=== PATIENT | female | born 1945 | race American Indian/Alaskan Native ===

== ENCOUNTER 2017-04-24 13:44 | Inpatient (IN) | payer MEDICARE ==
[2017-04-24 13:52] VITALS: BMI 46.5
--- NOTE | 2017-04-24 14:16 | C.PDOC ---
History Of Present Illness 71F sent by pmd for "irregular heart beat." pt says she was at a routine appt today when it was discovered. she does report sob for the last week and says "I' m retaining fluid" but this has been going on for months. she denies chest pain. Time Seen by Provider: 04/24/17 14:02 Chief Complaint (Nursing): Shortness Of Breath Past Medical History Vital Signs: Last Vital Signs Temp 97.6 F 04/24/17 13:52 Pulse 105 H 04/24/17 13:52 Resp 26 H 04/24/17 13:52 BP 134/84 04/24/17 13:52 Pulse Ox 93 L 04/24/17 14:28 - Medical History PMH: HTN, Hypercholesterolemia Family History: States: Other Other Family History: nc - Social History Hx Alcohol Use: No Hx Substance Use: No - Immunization History Hx Tetanus Toxoid Vaccination: No Hx Influenza Vaccination: Yes Hx Pneumococcal Vaccination: No Review Of Systems Except As Marked, All Systems Reviewed And Found Negative. Constitutional: Negative for: Fever, Chills Cardiovascular: Positive for: Edema. Negative for: Chest Pain, Palpitations Respiratory: Positive for: Shortness of Breath. Negative for: Cough, Hemoptysis Gastrointestinal: Negative for: Nausea, Vomiting, Abdominal Pain Genitourinary: Negative for: Dysuria Neurological: Negative for: Weakness, Numbness, Headache Physical Exam - Physical Exam Appears: Well, Non-toxic, No Acute Distress Skin: Warm, Dry Head: Atraumatic Eye(s): bilateral: PERRL Nose: No Epistaxis Oral Mucosa: Moist Cardiovascular: Rhythm Irregular Respiratory: No Accessory Muscle Use, No Rales, No Rhonchi, No Stridor, No Wheezing Gastrointestinal/Abdominal: Soft, No Tenderness Extremity: Swelling (severe lymphedema bilateral) Neurological/Psych: Oriented x3, Normal Motor, Normal Sensation, Other (no focal deficits) ED Course And Treatment - Laboratory Results Result Diagrams: 04/24/17 14:34 04/24/17 14:34 O2 Sat by Pulse Oximetry: 93 Medical Decision Making Medical Decision Making: ecg- afib rate 100, rad, no acute ischemia Disposition - Disposition Disposition: HOSPITALIZED Disposition Time: 15:27 Condition: STABLE Forms: [employer] (Bengali) - Clinical Impression Clinical Impression: CHF (congestive heart failure), Atrial fibrillation
[2017-04-24 14:38] LABS: BASO % 0.8 % (0.0-2.0); EOS # 0.1 K/uL (0.0-0.7); EOS % 1.6 % (0.0-4.0); HEMOGLOBIN 10.2 g/dL (11.0-16.0); LYMPH # 1.2 K/uL (1.0-4.3); LYMPH % 23.3 % (20.0-40.0); MEAN CELL VOLUME 82.2 fL (81.0-99.0); MEAN CORPUSCULAR HEMOGLOBIN 26.3 pg (27.0-31.0); MEAN PLATELET VOLUME 8.1 fL (7.2-11.7); MONO # 0.7 K/uL (0.0-0.8); MONO % 13.5 % (0.0-10.0); NEUT # 3.1 K/uL (1.8-7.0); NEUT % 60.8 % (50.0-75.0); NRBC % 0.1 % (0.0-2.0); RBC 3.88 Mil/uL (3.80-5.20); RED CELL DISTRIBUTION WIDTH 16.3 % (11.5-14.5); WHITE BLOOD COUNT 5.1 K/uL (4.8-10.8)
[2017-04-24 14:47] LABS: INR 1.2; PROTHROMBIN TIME 13.7 SECONDS (9.7-12.2)
[2017-04-24 14:54] LABS: ALBUMIN 3.5 g/dL (3.5-5.0); BLOOD UREA NITROGEN 30 mg/dL (7-17); CALCIUM 8.6 mg/dl (8.6-10.4); GFR AFRICAN-AMERICAN > 60; GFR NON-AFRICAN AMERICAN > 60
[2017-04-24 14:55] LABS: ALB/GLOB RATIO 1.1 (1.0-2.1); ALT/SGPT 33 U/L (9-52); AST/SGOT 45 U/L (14-36)
[2017-04-24 15:06] LABS: B-TYPE NATRIURETIC PEPTIDE 5510 pg/mL (0-900)
--- NOTE | 2017-04-24 16:17 | RAD ---
HISTORY: sob COMPARISON: No prior. FINDINGS: LUNGS: Bilateral perihilar and bibasilar airspace coalescing opacities. Coalescing pulmonary edema with or without infiltrates are compatible with PLEURA: Small bilateral pleural effusion suggested. No pneumothorax apparent. CARDIOVASCULAR: Cardiomegaly OSSEOUS STRUCTURES: Thoracic spondylosis. Bilateral shoulder arthrosis VISUALIZED UPPER ABDOMEN: Normal. OTHER FINDINGS: None. IMPRESSION: Cardiomegaly with probable bilateral coalescing pulmonary edema mild bilateral pleural effusions. Concomitant infiltrates not excluded.
[2017-04-24] MEDS ORDERED: Digoxin 125 mcg (0.125 mg) Tab PO STA ×2 (18:21→19:56)
--- NOTE | 2017-04-24 18:42 | CP.PCM.HP ---
History of Present Illness - History of Present Illness History of Present Illness: Patient is a known case of CAD, HTN, NIDDM , Obesity and CHF. She gained 25 lbs in 2 moths with SOB and massive pedal edema. In the office her heart rate was 100/ min. Chest x- ray in the ER showed pleural effusiin and CHF> Present on Admission - Present on Admission Any Indicators Present on Admission: No Review of Systems - Review of Systems Systems not reviewed;Unavailable: Respiratory Distress - Constitutional Constitutional: Weight Gain - Cardiovascular Cardiovascular: Dyspnea on Exertion, Leg Edema, Palpitations, Rapid Heart Rate - Respiratory Respiratory: Dyspnea on Exertion, Chest Congestion - Reproductive: Female Reproductive:Female: Menopausal - Musculoskeletal Musculoskeletal: Abnormal Gait Past Patient History - Past Medical History & Family History Past Medical History?: Yes - Past Social History Smoking Status: Never Smoked Chewing Tobacco Use: No Cigar Use: No Home Situation {Lives}: With Family - CARDIAC Hx Cardiac Disorders: Yes Hx Congestive Heart Failure: Yes Hx Hypercholesterolemia: Yes Hx Hypertension: Yes Hx Peripheral Edema: Yes - PULMONARY Hx Respiratory Disorders: Yes Hx Pulmonary Edema: Yes - NEUROLOGICAL Hx Neurological Disorder: No - HEENT Hx HEENT Problems: Yes Hx Glaucoma: Yes (NO MEDS) - RENAL Hx Chronic Kidney Disease: No - ENDOCRINE/METABOLIC Hx Endocrine Disorders: Yes Hx Diabetes Mellitus Type 2: Yes - HEMATOLOGICAL/ONCOLOGICAL Hx Blood Disorders: No - INTEGUMENTARY Hx Dermatological Problems: No - MUSCULOSKELETAL/RHEUMATOLOGICAL Hx Musculoskeletal Disorders: Yes Hx Back Pain: Yes Hx Herniated Disk: Yes (BULGING DISC) - GASTROINTESTINAL Hx Gastrointestinal Disorders: No - GENITOURINARY/GYNECOLOGICAL Hx Genitourinary Disorders: No - PSYCHIATRIC Hx Substance Use: No - SURGICAL HISTORY Hx Surgeries: Yes Hx Hysterectomy: Yes (PARTIAL HYSTERECTOMY) Other/Comment: LEFT BREAST LUMPECTOMY - ANESTHESIA Hx Anesthesia: Yes Hx Anesthesia Reactions: No Meds Allergies/Adverse Reactions: Allergies Allergy/AdvReac Type Severity Reaction Status Date / Time No Known Allergies Allergy Verified 04/24/17 13:51 Physical Exam - Constitutional Appears: In Acute Distress - Head Exam Head Exam: ATRAUMATIC, NORMAL INSPECTION, NORMOCEPHALIC - Eye Exam Eye Exam: Normal appearance Pupil Exam: PERRL - ENT Exam ENT Exam: Mucous Membranes Moist - Neck Exam Neck exam: Positive for: Full Rom - Respiratory Exam Respiratory Exam: Decreased Breath Sounds, Rales, Respiratory Distress - Cardiovascular Exam Cardiovascular Exam: +S1, +S2 Additional comments: Tachcardic woith irregiuralgy irregular. - GI/Abdominal Exam GI & Abdominal Exam: Normal Bowel Sounds, Soft - Rectal Exam Rectal Exam: Deferred - Back Exam Back exam: NORMAL INSPECTION - Neurological Exam Neurological exam: Alert, Oriented x3 - Psychiatric Exam Psychiatric exam: Normal Affect, Normal Mood - Skin Skin Exam: Dry, Intact, Warm Results - Vital Signs Recent Vital Signs: Last Vital Signs Temp 97.6 F 04/24/17 13:52 Pulse 110 H 04/24/17 16:33 Resp 20 04/24/17 16:33 BP 126/73 04/24/17 17:06 Pulse Ox 99 04/24/17 16:33 - Labs Result Diagrams: 04/24/17 14:34 04/24/17 14:34 Labs: Laboratory Results - last 24 hr 04/24/17 04/24/17 04/24/17 14:34 14:34 14:34 WBC 5.1 RBC 3.88 Hgb 10.2 L Hct 31.9 L MCV 82.2 MCH 26.3 L MCHC 32.0 L RDW 16.3 H Plt Count 167 MPV 8.1 Neut % (Auto) 60.8 Lymph % (Auto) 23.3 [place] % (Auto) 13.5 H Eos % (Auto) 1.6 Baso % (Auto) 0.8 Neut # 3.1 Lymph # 1.2 [place] # 0.7 Eos # 0.1 Baso # 0.0 PT 13.7 H INR 1.2 APTT 29 Sodium 139 Potassium 4.4 Chloride 102 Carbon Dioxide 29 Anion Gap 13 BUN 30 H Creatinine 0.9 Est GFR ( Amer) > 60 Est GFR (Non-Af Amer) > 60 Random Glucose 111 H Calcium 8.6 Total Bilirubin 0.8 AST 45 H ALT 33 Alkaline Phosphatase 67 Troponin I < 0.0120 NT-Pro-B Natriuret Pep 5510 H Total Protein 6.9 Albumin 3.5 Globulin 3.4 Albumin/Globulin Ratio 1.1 TSH 3rd Generation 04/24/17 14:34 WBC RBC Hgb Hct MCV MCH MCHC RDW Plt Count MPV Neut % (Auto) Lymph % (Auto) [place] % (Auto) Eos % (Auto) Baso % (Auto) Neut # Lymph # [place] # Eos # Baso # PT INR APTT Sodium Potassium Chloride Carbon Dioxide Anion Gap BUN Creatinine Est GFR ( Amer) Est GFR (Non-Af Amer) Random Glucose Calcium Total Bilirubin AST ALT Alkaline Phosphatase Troponin I NT-Pro-B Natriuret Pep Total Protein Albumin Globulin Albumin/Globulin Ratio TSH 3rd Generation 1.33 Assessment & Plan - Assessment and Plan (Free Text) Assessment: Assessment: New onset atrial fibrillation. CAD. Congestive cardiomyopathy.. NIDDM HTN OBESity Hyperlipidemia Plan: Plan: Lasix by IVJOSE COREG ELIQUIS ECHO CADRDIOLOGY CONSULT iwdonna MOORE> Som BASHIR - Date & Time Date: 04/24/17 Time: 06:45
[2017-04-24 22:26] LABS: BLOOD UREA NITROGEN 28 mg/dL (7-17); CALCIUM 8.3 mg/dl (8.6-10.4); GFR AFRICAN-AMERICAN > 60; GFR NON-AFRICAN AMERICAN > 60
--- NOTE | 2017-04-25 08:04 | CP.PCM.CON ---
History of Present Illness - History of Present Illness History of Present Illness: I was asked to see patient by Dr Bell. Patient is a 71 year old female with PMH HTN, CAD DM cardiomyopathy who presentw with progressive dyspnea. Symptoms developed about one week ago. She was seen in Dr Bell's office and found to be in atrial fibrillation. She was placed on antiocagulant therapy. She denies chest pain. Review of Systems - Constitutional Constitutional: absent: As Per HPI, Anorexia, Chills, Daytime Sleepiness, Excessive Sweating, Fatigue, Fever, Frequent Falls, Headache, Increased Appetite , Lethargy, Malaise, Night Sweats, Snoring, Sleep Apnea, Weight Gain, Weight Loss, Weakness, Other - EENT Eyes: absent: As Per HPI, Blind Spots, Blurred Vision, Change in Vision, Decreased Night Vision, Diplopia, Discharge, Dry Eye, Exophthalmos, Floaters, Irritation, Itchy Eyes, Loss of Peripheral Vision, Pain, Photophobia, Requires Corrective Lenses, Sees Flashes, Spots in Vision, Tunnel Vision, Other Visual Disturbances, Loss of Vision, Other Ears: absent: As Per HPI, Decreased Hearing, Ear Discharge, Ear Pain, Tinnitus, Abnormal Hearing, Disequilibrium, Dizziness, Other Nose/Mouth/Throat: absent: As Per HPI, Epistaxis, Nasal Congestion, Nasal Discharge, Nasal Obstruction, Nasal Trauma, Nose Pain, Post Nasal Drip, Sinus Pain, Sinus Pressure, Bleeding Gums, Change in Voice, Dental Pain, Dry Mouth, Dysphagia, Halitosis, Hoarsness, Lip Swelling, Mouth Lesions, Mouth Pain, Odynophagia, Sore Throat, Throat Swelling, Tongue Swelling, Facial Pain, Neck Pain, Neck Mass, Other - Breasts Breasts: absent: As Per HPI, Change in Shape, Mass, Pain, Nipple Discharge, Nipple Inversion, Skin Changes, Swelling, Other - Cardiovascular Cardiovascular: Irregular Heart Rhythm, Leg Edema - Respiratory Respiratory: Dyspnea - Gastrointestinal Gastrointestinal: absent: As Per HPI, Abdominal Pain, Belching, Bloating, Change in Bowel Habits, Change in Stool Character, Coffee Ground Emesis, Constipation, Cramping, Diarrhea, Dyspepsia, Dysphagia, Early Satiety, Excessive Flatus, Fecal Incontinence, Heartburn, Hematemesis, Hematochezia, Loose Stools, Melena, Nausea, Odynophagia, Temesmus, Vomiting, Other - Genitourinary Genitourinary: absent: As Per HPI, Change in Urinary Stream, Difficulty Urinating, Dysuria, Flank Pain, Hematuria, Pyuria, Nocturia, Urinary Incontinence, Urinary Frequency, Urinary Hesitance, Urinary Urgency, Voiding Freq/Small Amts, Freq UTI, Hx Renal/Bladder Calculi, Hx /Renal Surgery, Bladder Distension, Other - Musculoskeletal Musculoskeletal: absent: As Per HPI, Abnormal Gait, Arthralgias, Atrophy, Back Pain, Deformity, Joint Swelling, Limited Range of Motion, Loss of Height, Muscle Cramps, Muscle Weakness, Myalgias, Neck Pain, Numbness, Radiating Pain into Limb, Stiffness, Tingling, Other - Integumentary Integumentary: absent: As Per HPI, Acne, Alopecia, Bleeding Lesions, Change in Hair, Change in Nails, Change in Pigmentation, Changing Lesions, Dry Skin, Erythema, Furuncle, Hirsutism, Lesions, New Lesions, Non-Healing Lesions, Photosensitivity, Pruritus, Rash, Skin Pain, Skin Ulcer, Sores, Striae, Swelling , Unusual Bruising, Wounds, Jaundice, Other - Neurological Neurological: absent: As Per HPI, Abnormal Gait, Abnormal Hearing, Abnormal Movements, Abnormal Speech, Behavioral Changes, Burning Sensations, Confusion, Convulsions, Disequilibrium, Dizziness, Numbness, Focal Weakness, Frequent Falls , Headaches, Lack of Coordination, Loss of Vision, Memory Loss, Paresthesias, Radicular Pain, Restless Legs, Sensory Deficit, Syncope, Tingling, Tremor, Vertigo, Weakness, Other Visual Disturbances, Other - Psychiatric Psychiatric: absent: As Per HPI, Abnormal Sleep Pattern, Anhedonia, Anxiety, Auditory Hallucinations, Behavioral Changes, Change in Appetite, Change in Libido, Confusion, Depression, Difficulty Concentrating, Hallucinations, Homicidal Ideation, Hopelessness, Irritability, Memory Loss, Mood Swings, Panic Attacks, Paranoia, Suicidal Ideation, Visual Hallucinations, Tactile Hallucinations, Other - Endocrine Endocrine: absent: As Per HPI, Change in Body Appearance, Change in Libido, Cold Intolorance, Deepening of Voice, Excessive Sweating, Fatigue, Flushing, Heat Intolorance, Increase in Ring/Shoe/Hat Size, Palpitations, Polydipsia, Polyphagia, Polyuria, Other - Hematologic/Lymphatic Hematologic: absent: As Per HPI, Easy Bleeding, Easy Bruising, Lymphadenopathy, Other Past Patient History - Past Medical History & Family History Past Medical History?: Yes - Past Social History Smoking Status: Never Smoked - CARDIAC Hx Cardiac Disorders: Yes Hx Congestive Heart Failure: Yes Hx Hypercholesterolemia: Yes Hx Hypertension: Yes Hx Peripheral Edema: Yes - PULMONARY Hx Respiratory Disorders: Yes Hx Pulmonary Edema: Yes - NEUROLOGICAL Hx Neurological Disorder: No - HEENT Hx HEENT Problems: Yes Hx Glaucoma: Yes (NO MEDS) - RENAL Hx Chronic Kidney Disease: No - ENDOCRINE/METABOLIC Hx Endocrine Disorders: Yes Hx Diabetes Mellitus Type 2: Yes - HEMATOLOGICAL/ONCOLOGICAL Hx Blood Disorders: No - INTEGUMENTARY Hx Dermatological Problems: No - MUSCULOSKELETAL/RHEUMATOLOGICAL Hx Falls: No - GASTROINTESTINAL Hx Gastrointestinal Disorders: No - GENITOURINARY/GYNECOLOGICAL Hx Genitourinary Disorders: No - PSYCHIATRIC Hx Substance Use: No - SURGICAL HISTORY Hx Surgeries: Yes Hx Hysterectomy: Yes (PARTIAL HYSTERECTOMY) Other/Comment: LEFT BREAST LUMPECTOMY - ANESTHESIA Hx Anesthesia: Yes Hx Anesthesia Reactions: No Meds Allergies/Adverse Reactions: Allergies Allergy/AdvReac Type Severity Reaction Status Date / Time No Known Allergies Allergy Verified 04/24/17 13:51 - Medications Medications: Current Medications Apixaban (Eliquis) 5 mg PO BID [facility] Carvedilol (Coreg) 12.5 mg PO BID [facility] Last Admin: 04/24/17 19:30 Dose: 12.5 mg Digoxin (Lanoxin) 0.125 mg PO DAILY@1800 [facility] Furosemide (Lasix) 40 mg IVP DAILY [facility] Losartan Potassium (Cozaar) 25 mg PO DAILY [facility] Metformin HCl (Glucophage Xr) 500 mg PO ACBD [facility] Spironolactone (Aldactone) 25 mg PO DAILY [facility] Physical Exam - Constitutional Appears: Non-toxic - Head Exam Head Exam: NORMAL INSPECTION - Eye Exam Eye Exam: Normal appearance - ENT Exam ENT Exam: Mucous Membranes Moist, Normal Oropharynx - Neck Exam Neck exam: Positive for: Full Rom, Normal Inspection. Negative for: Lymphadenopathy, Thyromegaly - Respiratory Exam Respiratory Exam: NORMAL BREATHING PATTERN - Cardiovascular Exam Cardiovascular Exam: Irregular Rhythm - GI/Abdominal Exam GI & Abdominal Exam: Normal Bowel Sounds - Rectal Exam Rectal Exam: Deferred - Extremities Exam Extremities exam: Positive for: pedal edema - Back Exam Back exam: NORMAL INSPECTION - Neurological Exam Neurological exam: Alert, Oriented x3 - Psychiatric Exam Psychiatric exam: Normal Affect - Skin Skin Exam: Normal Color Results - Vital Signs Recent Vital Signs: Last Vital Signs Temp 97.6 F 04/25/17 07:00 Pulse 96 H 04/25/17 07:00 Resp 20 04/25/17 07:00 BP 90/54 L 04/25/17 07:00 Pulse Ox 96 04/25/17 07:00 - Labs Result Diagrams: 04/24/17 14:34 04/24/17 22:09 Labs: Laboratory Results - last 24 hr 04/24/17 04/24/17 04/24/17 14:34 14:34 14:34 WBC 5.1 RBC 3.88 Hgb 10.2 L Hct 31.9 L MCV 82.2 MCH 26.3 L MCHC 32.0 L RDW 16.3 H Plt Count 167 MPV 8.1 Neut % (Auto) 60.8 Lymph % (Auto) 23.3 [place] % (Auto) 13.5 H Eos % (Auto) 1.6 Baso % (Auto) 0.8 Neut # 3.1 Lymph # 1.2 [place] # 0.7 Eos # 0.1 Baso # 0.0 PT 13.7 H INR 1.2 APTT 29 Sodium 139 Potassium 4.4 Chloride 102 Carbon Dioxide 29 Anion Gap 13 BUN 30 H Creatinine 0.9 Est GFR ( Amer) > 60 Est GFR (Non-Af Amer) > 60 POC Glucose (mg/dL) Random Glucose 111 H Calcium 8.6 Total Bilirubin 0.8 AST 45 H ALT 33 Alkaline Phosphatase 67 Troponin I < 0.0120 NT-Pro-B Natriuret Pep 5510 H Total Protein 6.9 Albumin 3.5 Globulin 3.4 Albumin/Globulin Ratio 1.1 TSH 3rd Generation 04/24/17 04/24/17 04/24/17 14:34 21:55 22:09 WBC RBC Hgb Hct MCV MCH MCHC RDW Plt Count MPV Neut % (Auto) Lymph % (Auto) [place] % (Auto) Eos % (Auto) Baso % (Auto) Neut # Lymph # [place] # Eos # Baso # PT INR APTT Sodium 137 Potassium 4.2 Chloride 102 Carbon Dioxide 29 Anion Gap 11 BUN 28 H Creatinine 0.9 Est GFR ( Amer) > 60 Est GFR (Non-Af Amer) > 60 POC Glucose (mg/dL) 115 H Random Glucose 107 H Calcium 8.3 L Total Bilirubin AST ALT Alkaline Phosphatase Troponin I < 0.0120 NT-Pro-B Natriuret Pep Total Protein Albumin Globulin Albumin/Globulin Ratio TSH 3rd Generation 1.33 04/25/17 06:39 WBC RBC Hgb Hct MCV MCH MCHC RDW Plt Count MPV Neut % (Auto) Lymph % (Auto) [place] % (Auto) Eos % (Auto) Baso % (Auto) Neut # Lymph # [place] # Eos # Baso # PT INR APTT Sodium Potassium Chloride Carbon Dioxide Anion Gap BUN Creatinine Est GFR ( Amer) Est GFR (Non-Af Amer) POC Glucose (mg/dL) 96 Random Glucose Calcium Total Bilirubin AST ALT Alkaline Phosphatase Troponin I NT-Pro-B Natriuret Pep Total Protein Albumin Globulin Albumin/Globulin Ratio TSH 3rd Generation - EKG Data EKG Interpreted by: Myself - EKG Data EKG Specific Queries Rhythm: Atrial Fib Assessment & Plan (1) HTN (hypertension) Assessment and Plan: medical therapy and blood pressure control Status: Acute (2) Atrial fibrillation Assessment and Plan: rate controlled. agree with anticoagulation with Eliquis. stroke rsik discussed with the patient. will check echocardiogram Status: Acute
--- NOTE | 2017-04-25 11:01 | CARD ---
APPROVED REPORT EKG Measurement Heart [id number] <Conclusion> Atrial fibrillation Right axis deviation Possible Right ventricular hypertrophy Abnormal ECG
[2017-04-25] MEDS: Digoxin 125 mcg (0.125 mg) Tab PO SCH (17:31)
--- NOTE | 2017-04-25 18:41 | CP.PCM.PN ---
Subjective - Date & Time of Evaluation Date of Evaluation: 04/25/17 Time of Evaluation: 06:30 - Subjective Subjective: Patient still dyspneic. Claims she is slightly better. Diuresing with IV Lasix. Lower extremities still markedly swollen. Had ECHO done thos AM. Patient still fibrillating with a rate of 80-90 / min. Objective - Vital Signs/Intake and Output Vital Signs (last 24 hours): Temp Pulse Resp BP Pulse Ox 97.9 F 80 20 111/69 96 04/25/17 15:09 04/25/17 15:09 04/25/17 15:09 04/25/17 17:33 04/25/17 15:09 Intake and Output: 04/25/17 04/25/17 06:59 18:59 Intake Total 240 Balance 240 - Medications Medications: Current Medications Apixaban (Eliquis) 5 mg PO BID [facility] Last Admin: 04/25/17 17:31 Dose: 5 mg Carvedilol (Coreg) 12.5 mg PO BID [facility] Last Admin: 04/25/17 17:33 Dose: 12.5 mg Digoxin (Lanoxin) 0.125 mg PO DAILY@1800 [facility] Last Admin: 04/25/17 17:31 Dose: 0.125 mg Furosemide (Lasix) 40 mg IVP DAILY [facility] Last Admin: 04/25/17 09:49 Dose: 40 mg Losartan Potassium (Cozaar) 25 mg PO DAILY [facility] Last Admin: 04/25/17 12:49 Dose: 25 mg Metformin HCl (Glucophage Xr) 500 mg PO ACBD [facility] Last Admin: 04/25/17 17:36 Dose: 500 mg Spironolactone (Aldactone) 25 mg PO DAILY [facility] Last Admin: 04/25/17 09:51 Dose: 25 mg - Labs Labs: 04/24/17 14:34 04/24/17 22:09 PT 13.7 SECONDS (9.7-12.2) H 04/24/17 14:34 INR 1.2 04/24/17 14:34 APTT 29 SECONDS (21-34) 04/24/17 14:34 - Head Exam Head Exam: ATRAUMATIC, NORMAL INSPECTION, NORMOCEPHALIC - Eye Exam Eye Exam: EOMI, Normal appearance Pupil Exam: PERRL - Neck Exam Neck Exam: Full ROM - Respiratory Exam Respiratory Exam: Decreased Breath Sounds, Respiratory Distress - Cardiovascular Exam Cardiovascular Exam: +S1, +S2 Additional comments: Irregularly irregular. - GI/Abdominal Exam GI & Abdominal Exam: Soft, Normal Bowel Sounds - Rectal Exam Rectal Exam: Deferred - Extremities Exam Additional comments: Grade 4 pedal edema. - Back Exam Back Exam: NORMAL INSPECTION - Neurological Exam Neurological Exam: Alert, Awake, Oriented x3 - Psychiatric Exam Psychiatric exam: Normal Affect, Normal Mood - Skin Skin Exam: Dry, Intact, Normal Color Assessment and Plan (1) NIDDY (non-insulin dependent diabetes mellitus in young) Status: Chronic (2) Atrial fibrillation Status: Acute (3) CHF (congestive heart failure) Status: Acute (4) HTN (hypertension) Status: Chronic - Assessment and Plan (Free Text) Assessment: Assessment: New onset atrial fibrillation Congestive cardiomyopathy. NIDDM HTN Obesity. Hyperlipedemia Plan: Plan: Continue medical traetments with LASIX, Spironolactone, Digoxin, COZAAR, Check ECHO
[2017-04-26 08:38] LABS: BASO % 0.7 % (0.0-2.0); EOS # 0.1 K/uL (0.0-0.7); EOS % 2.7 % (0.0-4.0); HEMOGLOBIN 9.7 g/dL (11.0-16.0); LYMPH # 1.2 K/uL (1.0-4.3); LYMPH % 25.5 % (20.0-40.0); MEAN CELL VOLUME 83.5 fL (81.0-99.0); MEAN CORPUSCULAR HEMOGLOBIN 26.3 pg (27.0-31.0); MEAN CORPUSCULAR HGB CONC 31.5 g/dL (33.0-37.0); MEAN PLATELET VOLUME 9.3 fL (7.2-11.7); MONO # 0.6 K/uL (0.0-0.8); MONO % 12.8 % (0.0-10.0); NEUT # 2.8 K/uL (1.8-7.0); NEUT % 58.3 % (50.0-75.0); NRBC % 0.2 % (0.0-2.0); RBC 3.68 Mil/uL (3.80-5.20); RED CELL DISTRIBUTION WIDTH 17.1 % (11.5-14.5); WHITE BLOOD COUNT 4.7 K/uL (4.8-10.8)
[2017-04-26 09:03] LABS: ALBUMIN 3.2 g/dL (3.5-5.0); ALT/SGPT 27 U/L (9-52); AST/SGOT 30 U/L (14-36); BLOOD UREA NITROGEN 30 mg/dL (7-17); CALCIUM 8.1 mg/dl (8.6-10.4); GFR AFRICAN-AMERICAN > 60; GFR NON-AFRICAN AMERICAN 55
--- NOTE | 2017-04-26 13:11 | CP.PCM.PN ---
Subjective - Date & Time of Evaluation Date of Evaluation: 04/26/17 Time of Evaluation: 01:05 - Subjective Subjective: Lesser SOB. Lost 3 lbs. in 1 day. Diuresing very well with Lasix. Slightly lesser pedal edema. Still fibrillating with rate of 88 /min. Objective - Vital Signs/Intake and Output Vital Signs (last 24 hours): Temp Pulse Resp BP Pulse Ox 97.9 F 88 18 108/61 95 04/26/17 07:25 04/26/17 07:25 04/26/17 07:25 04/26/17 09:43 04/26/17 07:25 Intake and Output: 04/26/17 04/26/17 06:59 18:59 Intake Total 50 Balance 50 - Medications Medications: Current Medications Apixaban (Eliquis) 5 mg PO BID [facility] Last Admin: 04/26/17 09:43 Dose: 5 mg Carvedilol (Coreg) 12.5 mg PO BID [facility] Last Admin: 04/26/17 09:42 Dose: 12.5 mg Digoxin (Lanoxin) 0.125 mg PO DAILY@1800 [facility] Last Admin: 04/25/17 17:31 Dose: 0.125 mg Furosemide (Lasix) 40 mg IVP DAILY [facility] Last Admin: 04/26/17 09:43 Dose: 40 mg Losartan Potassium (Cozaar) 25 mg PO DAILY [facility] Last Admin: 04/26/17 09:42 Dose: 25 mg Metformin HCl (Glucophage Xr) 500 mg PO ACBD [facility] Last Admin: 04/26/17 08:25 Dose: 500 mg Spironolactone (Aldactone) 25 mg PO DAILY [facility] Last Admin: 04/25/17 09:51 Dose: 25 mg - Labs Labs: 04/26/17 08:18 04/26/17 08:18 PT 13.7 SECONDS (9.7-12.2) H 04/24/17 14:34 INR 1.2 04/24/17 14:34 APTT 29 SECONDS (21-34) 04/24/17 14:34 - Constitutional Appears: No Acute Distress - Head Exam Head Exam: ATRAUMATIC, NORMAL INSPECTION, NORMOCEPHALIC - Eye Exam Pupil Exam: PERRL - ENT Exam ENT Exam: Mucous Membranes Moist - Neck Exam Neck Exam: Full ROM - Respiratory Exam Respiratory Exam: Decreased Breath Sounds, Rales Additional comments: Rqales at both bases. - Cardiovascular Exam Cardiovascular Exam: Irregular Rhythm, +S1, +S2 - GI/Abdominal Exam GI & Abdominal Exam: Soft - Rectal Exam Rectal Exam: Deferred - Extremities Exam Extremities Exam: Pedal Edema - Neurological Exam Neurological Exam: Alert, Awake, Oriented x3 - Skin Skin Exam: Dry, Intact, Normal Color, Warm Assessment and Plan (1) NIDDY (non-insulin dependent diabetes mellitus in young) Status: Chronic (2) Atrial fibrillation Status: Acute (3) CHF (congestive heart failure) Status: Acute (4) HTN (hypertension) Status: Chronic (5) Type 2 diabetes mellitus Status: Chronic - Assessment and Plan (Free Text) Plan: Plan: Continue IV LASIX. , Digoxin, Spironolactone. and ELIQUIS.
--- NOTE | 2017-04-26 16:27 | CP.PCM.PN ---
Subjective - Date & Time of Evaluation Date of Evaluation: 04/26/17 Time of Evaluation: 15:35 - Subjective Subjective: patient has no chest pain. less dyspnea. Objective - Vital Signs/Intake and Output Vital Signs (last 24 hours): Temp Pulse Resp BP Pulse Ox 97.5 F L 78 22 114/68 92 L 04/26/17 15:17 04/26/17 15:17 04/26/17 15:17 04/26/17 15:17 04/26/17 15:17 Intake and Output: 04/26/17 04/26/17 06:59 18:59 Intake Total 50 Balance 50 - Medications Medications: Current Medications Apixaban (Eliquis) 5 mg PO BID [facility] Last Admin: 04/26/17 09:43 Dose: 5 mg Carvedilol (Coreg) 12.5 mg PO BID [facility] Last Admin: 04/26/17 09:42 Dose: 12.5 mg Digoxin (Lanoxin) 0.125 mg PO DAILY@1800 [facility] Last Admin: 04/25/17 17:31 Dose: 0.125 mg Furosemide (Lasix) 40 mg IVP DAILY [facility] Last Admin: 04/26/17 09:43 Dose: 40 mg Losartan Potassium (Cozaar) 25 mg PO DAILY [facility] Last Admin: 04/26/17 09:42 Dose: 25 mg Metformin HCl (Glucophage Xr) 500 mg PO ACBD [facility] Last Admin: 04/26/17 08:25 Dose: 500 mg Spironolactone (Aldactone) 25 mg PO DAILY [facility] Last Admin: 04/26/17 09:45 Dose: 25 mg - Labs Labs: 04/26/17 08:18 04/26/17 08:18 PT 13.7 SECONDS (9.7-12.2) H 04/24/17 14:34 INR 1.2 04/24/17 14:34 APTT 29 SECONDS (21-34) 04/24/17 14:34 - Constitutional Appears: Non-toxic - Head Exam Head Exam: NORMAL INSPECTION - Eye Exam Eye Exam: Normal appearance - ENT Exam ENT Exam: Mucous Membranes Moist - Neck Exam Neck Exam: Full ROM - Respiratory Exam Respiratory Exam: Decreased Breath Sounds - Cardiovascular Exam Cardiovascular Exam: Irregular Rhythm - GI/Abdominal Exam GI & Abdominal Exam: Normal Bowel Sounds - Rectal Exam Rectal Exam: Deferred - Extremities Exam Extremities Exam: Pedal Edema - Back Exam Back Exam: NORMAL INSPECTION - Neurological Exam Neurological Exam: Alert - Psychiatric Exam Psychiatric exam: Normal Affect - Skin Skin Exam: Normal Color Assessment and Plan (1) HTN (hypertension) Assessment & Plan: conitnue medical therapy Status: Chronic (2) Atrial fibrillation Assessment & Plan: rate controlled. on Eliquis Status: Acute (3) Right heart failure due to pulmonary hypertension Assessment & Plan: I reviewed the echcoardiogram. Left ventricular function is normal. The right ventricle is dilated and hypokinetic. There is elevated right sided pressure. This is the cause of the patient's lower extremity edema. The right heart failure is chronic. maintain diuretic therapy. stable cardiac regimen. Status: Acute
[2017-04-26] MEDS: Digoxin 125 mcg (0.125 mg) Tab PO SCH (17:27)
--- NOTE | 2017-04-27 11:20 | CARD ---
APPROVED REPORT EXAM: Two-dimensional and M-mode echocardiogram with Doppler and color Doppler. Other Information Quality : GoodRhythm : INDICATION Dyspnea Peripheral Edema Cardiac Disease: CAD Congestive Heart Failure RISK FACTORS Hypertension Obesity Diabetes 2D DIMENSIONS IVSd0.8 (0.7-1.1cm)LVDd4.9 (3.9-5.9cm) PWd0.7 (0.7-1.1cm)LVDs3.4 (2.5-4.0cm) FS (%) 31.3 %LVEF (%)58.9 (>50%) M-Mode DIMENSIONS RVDd2.81 (2.1-3.2cm)Left Atrium (MM)4.61 (2.5-4.0cm) IVSd0.96 (0.7-1.1cm)Aortic Root2.67 (2.2-3.7cm) LVDd5.46 (4.0-5.6cm)Aortic Cusp Exc.1.94 (1.5-2.0cm) PWd1.25 (0.7-1.1cm)FS (%) 20 % LVDs4.35 (2.0-3.8cm) Mitral Valve MV E Hvvzxpmg80.0cm/sE/A ratio0.0 TDI E/Lateral E'0.0E/Medial E'0.0 Tricuspid Valve TR Peak [id number]/sTR Peak [id number] LEFT VENTRICLE The left ventricle is normal size. There is normal left ventricular wall thickness. The Ejection Fraction is 50-55%. pt appears in a,fib.given dilated la,ra,pulmonary htn probably moderate degree of lv diastolic dysfunciton is present. RIGHT VENTRICLE The right ventricle is moderately dilated. Systolic function is moderately reduced. ATRIA The left atrium is moderately dilated. The right atrium is moderately dilated. suspicios for asd with lt to rt shunt. AORTIC VALVE The aortic valve is trileaflet. The aortic valve is mildly sclerotic. No aortic regurgitation is present. MITRAL VALVE The mitral valve is thickened but opens well. Mitral regurgitation is mild to moderate. TRICUSPID VALVE The tricuspid valve is normal in structure. There is moderate tricuspid regurgitation. Right ventricular systolic pressure is estimated at 65 mmHg. There is moderate-severe pulmonary hypertension. PULMONIC VALVE The pulmonary valve is normal in structure. There is mild pulmonic valvular regurgitation. GREAT VESSELS The aortic root is normal size. Mildly Dilated IVC with poor inspiration collapse is consistent with elevated right atrial pressure. PERICARDIAL EFFUSION There is no pericardial effusion. <Conclusion> poor window. The left ventricle is normal size. The Ejection Fraction is 50-55%. pt appears in a,fib.given dilated la,ra,pulmonary htn probably moderate degree of lv diastolic dysfunciton is present. The right ventricle is moderately dilated. Systolic function is moderately reduced. The left atrium is moderately dilated. The right atrium is moderately dilated. suspicios for asd with lt to rt shunt. Mitral regurgitation is mild to moderate. The aortic root is normal size. Mildly Dilated IVC with poor inspiration collapse is consistent with elevated right atrial pressure. suggest froy.
--- NOTE | 2017-04-27 18:09 | CP.PCM.PN ---
Subjective - Date & Time of Evaluation Date of Evaluation: 04/27/17 Time of Evaluation: 18:00 - Subjective Subjective: no new complaints. Objective - Vital Signs/Intake and Output Vital Signs (last 24 hours): Temp Pulse Resp BP Pulse Ox 97.8 F 77 18 111/79 94 L 04/27/17 15:08 04/27/17 15:08 04/27/17 15:08 04/27/17 15:08 04/27/17 15:08 Intake and Output: 04/27/17 04/27/17 06:59 18:59 Intake Total 440 Balance 440 - Medications Medications: Current Medications Apixaban (Eliquis) 5 mg PO BID [facility] Last Admin: 04/27/17 10:15 Dose: 5 mg Carvedilol (Coreg) 12.5 mg PO BID [facility] Last Admin: 04/27/17 10:15 Dose: 12.5 mg Digoxin (Lanoxin) 0.125 mg PO DAILY@1800 [facility] Last Admin: 04/26/17 17:27 Dose: 0.125 mg Furosemide (Lasix) 40 mg IVP DAILY [facility] Last Admin: 04/27/17 10:14 Dose: 40 mg Losartan Potassium (Cozaar) 25 mg PO DAILY [facility] Last Admin: 04/27/17 10:15 Dose: 25 mg Metformin HCl (Glucophage Xr) 500 mg PO ACBD [facility] Last Admin: 04/27/17 08:22 Dose: 500 mg Spironolactone (Aldactone) 25 mg PO DAILY [facility] Last Admin: 04/27/17 10:15 Dose: 25 mg - Labs Labs: 04/26/17 08:18 04/26/17 08:18 PT 13.7 SECONDS (9.7-12.2) H 04/24/17 14:34 INR 1.2 04/24/17 14:34 APTT 29 SECONDS (21-34) 04/24/17 14:34 - Constitutional Appears: Non-toxic - Head Exam Head Exam: NORMAL INSPECTION - Eye Exam Eye Exam: Normal appearance - Neck Exam Neck Exam: Full ROM - Respiratory Exam Respiratory Exam: NORMAL BREATHING PATTERN - Cardiovascular Exam Cardiovascular Exam: REGULAR RHYTHM - GI/Abdominal Exam GI & Abdominal Exam: Normal Bowel Sounds - Rectal Exam Rectal Exam: Deferred - Extremities Exam Extremities Exam: Pedal Edema - Back Exam Back Exam: NORMAL INSPECTION - Neurological Exam Neurological Exam: Alert - Psychiatric Exam Psychiatric exam: Normal Affect - Skin Skin Exam: Normal Color Assessment and Plan (1) HTN (hypertension) Assessment & Plan: blood pressure control Status: Chronic (2) Atrial fibrillation Assessment & Plan: rate controlled. continue Eliquis. Status: Acute (3) Right heart failure due to pulmonary hypertension Assessment & Plan: conitnue diuresis Status: Acute
[2017-04-27] MEDS: Digoxin 125 mcg (0.125 mg) Tab PO SCH (18:39)
[2017-04-28] MEDS ORDERED: Ipratropium 0.02% Inhal Soln (0.5 mg/2.5 ml) UD IH STA (13:34)
--- NOTE | 2017-04-28 13:50 | PCM.RRT ---
<Christopher Siddiqui - Last Filed: 04/28/17 14:39> MANAGER OF CREATIVE SERVICES Nurses Assessment - Situation Date: 04/28/17 Time MANAGER OF CREATIVE SERVICES was called: 13:35 MANAGER OF CREATIVE SERVICES Responder Arrival Time:: 13:35 MANAGER OF CRE[employer]IVE [employer] Location:: Med/Surg Room Number: 662B [employer]NAGER [employer]IVE [employer] Reason for Call: Respiratory Distress, O2 Saturation below 90% MANAGER OF CREATIVE SERVICES Called By: RN - IV IV Inserted during MANAGER OF CREATIVE SERVICES?: No New IV Insertion Tolerance: Good - Respiratory [employer]NAGER [employer]IVE [employer] Delivery Method: Non Rebreather @% (15) Received Nebulizer Treatments: Yes Was the Patient Ventilated with Bag/Mask 100% O2?: Yes Secretions Suctioned?: No Was the Patient Intubated?: No Was the Patient Placed on a Ventilator?: No - Medication Medications Administered During MANAGER OF CREATIVE SERVICES: Atrovent - Diagnostic Test Ordered EKG: No Chest X-Ray: Yes CT Scan: No - Stat Labs Ordered MANAGER OF CREATIVE [employer] Stat Labs Ordered: CBC, BMP, ABG - Anjum Coma Scale Coma Scale Eye Opening: Spontaneous Coma Scale Motor: Obeys Commands Movement Coma Scale Verbal: Oriented Coma Scale Total: 15 - Time MANAGER OF CREATIVE SERVICES Ended Time MANAGER OF CREATIVE SERVICES Ended: 13:49 - Recommendations 5) MANAGER OF CREATIVE SERVICES Level of Care Recommendations: Remain in current setting Notifications: Attending Physician (Dr. Auguste), Consultations (Dr. Skelton ) I.Reason for MANAGER OF CREATIVE SERVICES - A) Acute Change in Patient: (Select all that apply): Acute change in SpO2 less Subjective: MANAGER OF CREATIVE SERVICES called at 13:35 for tachypnea, resp distress. Patient found responsive in bed using accessory muscles and gasping for air. Patient admits increasing shortness of breath but denies chest pain, palpitations. Nursing reports pt with new onset afib on this admission and is on Eliquis. Nursing reports patient was increasingly using accessory muscles and desaturating in to the 80s. - Neurological Status (Select all that apply): Alert, Responsive, Oriented - Respiratory Oxygen Delivery Method: Non Rebreather @% (100) - Constitutional Appears: In Acute Distress, Chronically Ill - Head Head Exam: ATRAUMATIC, NORMAL INSPECTION - Eyes Eye Exam: EOMI, Normal appearance, PERRL - Respiratory Exam Respiratory Exam: Wheezes (expiratory wheezes). absent: Rales, Rhonchi - Cardiovascular Exam Cardiovascular Exam: REGULAR RHYTHM, +S1, +S2 - GI/Abdominal Exam GI & Abdominal Exam: Soft, Normal Bowel Sounds. absent: Tenderness - Neurological Exam Neurological Exam: Alert, Awake, Oriented x3 - Extremities Exam Extremities Exam: Pedal Edema (anasarca). absent: Calf Tenderness, Normal Inspection Plan - Assessment of Findings&Treatment Plan Plan: SOB BiPAP (12, 6, 100% - to be titrated to keep O2 above 92%) Atrovent Breathing treatment STAT ABG CXR STAT - improved from prior on 04/24, decreased congestion in upper lungs CBC, CMP, MG, PHOS, TSH, Free T4 Spoke with Dr. Skelton (physical therapist technician) - aware of ECHO report, and attending Dr. Garcia (PMD) <Radha Bell - Last Filed: 04/29/17 11:27> MANAGER OF CREATIVE SERVICES Nurses Assessment - Vital Signs Vital Signs: Rapid Response Vital Sign Blood Pressure 115/67 Pulse Rate 78 Respiratory Rate 28 Temperature 98.7 F Oxygen Saturation 96 - Vital Signs at end of MANAGER OF CREATIVE SERVICES Vital Signs at end of MANAGER OF CREATIVE SERVICES: Rapid Response End Vital Sign Blood Pressure 121/63 Pulse Rate 82 Respiratory Rate 22 Temperature 98.2 F O2 Sat by Pulse Oximetry 100
[2017-04-28 14:02] LABS: ABG ALLEN TEST POS; ARTERIAL BLOOD GAS HCO3 30.7 mmol/L (21-28); ARTERIAL BLOOD GAS O2 SAT 100.2 % (95-98); ARTERIAL BLOOD GAS PCO2 89 mm/Hg (35-45); ARTERIAL BLOOD GAS PH 7.24 (7.35-7.45); ARTERIAL BLOOD GAS PO2 236 mm/Hg (80-100); ARTERIAL BLOOD GAS TCO2 40.8 mmol/L (22-28)
--- NOTE | 2017-04-28 14:58 | RAD ---
Chest x-ray single frontal view History: Rapid response. Comparison: 04/24/2017 Findings: Prominent diffuse confluent airspace opacities throughout both lungs suggestive for prominent edema and or infiltrate. Clinical correlation. Moderate bilateral pleural effusions. Cardiomegaly. Degenerative changes in the spine and shoulders. Impression: Prominent diffuse confluent airspace opacities throughout both lungs suggestive for prominent edema and or infiltrate. Clinical correlation. Moderate bilateral pleural effusions. Cardiomegaly.
--- NOTE | 2017-04-28 15:00 | CP.PCM.CON ---
<HareshAakash engle - Last Filed: 04/28/17 17:59> History of Present Illness - History of Present Illness History of Present Illness: CCU Consult HPI: 71F PMHx of CHF, CAD, DM HTN, HLD presents to ED from Dr. Lopez office w/ irregular heartbeat. Pt was found to be in Afib. Reports SOB for last week, and LE swelling for the past few months. On 04/28 BRAID MAKER called for respiratory distress and tachypnea w/ O2 sat <90%. Pt found responsive using accessory muscles and gasping for air. Admitted to increased SOB, denied chest pain, denied palpitations. PICC placed in icu, Lasix drip started. Lactate was NOT elevated. ABG retaining CO2. PMH: CHF, CAD, DM HTN, HLD PSH: Denies FH: Unremarkable SH: Denies tobacco use. Denies EtOH use. Denies drug use. Meds: Denies All: NKDA Review of Systems - Review of Systems Review of Systems: per HPI Past Patient History - Past Medical History & Family History Past Medical History?: Yes - Past Social History Smoking Status: Never Smoked - CARDIAC Hx Cardiac Disorders: Yes Hx Congestive Heart Failure: Yes Hx Hypercholesterolemia: Yes Hx Hypertension: Yes Hx Peripheral Edema: Yes - PULMONARY Hx Respiratory Disorders: Yes Hx Pulmonary Edema: Yes - NEUROLOGICAL Hx Neurological Disorder: No - HEENT Hx HEENT Problems: Yes Hx Glaucoma: Yes (NO MEDS) - RENAL Hx Chronic Kidney Disease: No - ENDOCRINE/METABOLIC Hx Endocrine Disorders: Yes Hx Diabetes Mellitus Type 2: Yes - HEMATOLOGICAL/ONCOLOGICAL Hx Blood Disorders: No - INTEGUMENTARY Hx Dermatological Problems: No - MUSCULOSKELETAL/RHEUMATOLOGICAL Hx Falls: No - GASTROINTESTINAL Hx Gastrointestinal Disorders: No - GENITOURINARY/GYNECOLOGICAL Hx Genitourinary Disorders: No - PSYCHIATRIC Hx Substance Use: No - SURGICAL HISTORY Hx Surgeries: Yes Hx Hysterectomy: Yes (PARTIAL HYSTERECTOMY) Other/Comment: LEFT BREAST LUMPECTOMY - ANESTHESIA Hx Anesthesia: Yes Hx Anesthesia Reactions: No Meds Allergies/Adverse Reactions: Allergies Allergy/AdvReac Type Severity Reaction Status Date / Time No Known Allergies Allergy Verified 04/24/17 13:51 - Medications Medications: Current Medications Apixaban (Eliquis) 5 mg PO BID [facility] [place] Last Admin: 04/28/17 09:40 Dose: 5 mg Carvedilol (Coreg) 12.5 mg PO BID [facility] [place] Last Admin: 04/28/17 09:40 Dose: 12.5 mg Digoxin (Lanoxin) 0.125 mg PO DAILY@1800 [facility] [place] Last Admin: 04/27/17 18:39 Dose: 0.125 mg Furosemide (Lasix) 40 mg IVP DAILY [facility] [place] Last Admin: 04/28/17 09:40 Dose: 40 mg Cefepime HCl (Maxipime Iv 1 Gm Premix) 1 gm in 50 mls @ 100 mls/hr IVPB Q24H [facility] [place] Losartan Potassium (Cozaar) 25 mg PO DAILY [facility] [place] Last Admin: 04/28/17 09:40 Dose: 25 mg Metformin HCl (Glucophage Xr) 500 mg PO ACBD [facility] [place] Last Admin: 04/28/17 08:08 Dose: 500 mg Spironolactone (Aldactone) 25 mg PO DAILY [facility] Last Admin: 04/28/17 09:40 Dose: 25 mg Physical Exam - Constitutional Appears: In Acute Distress Additional comments: bipap - Head Exam Head Exam: ATRAUMATIC, NORMAL INSPECTION, NORMOCEPHALIC - Eye Exam Eye Exam: EOMI Pupil Exam: NORMAL ACCOMODATION - ENT Exam ENT Exam: Mucous Membranes Moist - Respiratory Exam Respiratory Exam: Respiratory Distress Additional comments: bipap - Cardiovascular Exam Cardiovascular Exam: Tachycardia - GI/Abdominal Exam GI & Abdominal Exam: Normal Bowel Sounds, Soft. absent: Distended, Tenderness - Exam Additional comments: foul order from groin, likely fungal - Extremities Exam Additional comments: 3+ edema LE - Neurological Exam Neurological exam: Alert, Oriented x3 - Psychiatric Exam Psychiatric exam: Normal Affect, Normal Mood - Skin Skin Exam: Dry, Normal Color, Warm Results - Vital Signs Recent Vital Signs: Last Vital Signs Temp 97.7 F 04/28/17 09:07 Pulse 84 04/28/17 14:19 Resp 20 04/28/17 09:07 BP 112/66 04/28/17 09:40 Pulse Ox 96 04/28/17 09:07 - Labs Result Diagrams: 04/28/17 16:28 04/28/17 16:28 Labs: Laboratory Results - last 24 hr 04/27/17 04/27/17 04/28/17 16:37 21:04 06:31 Puncture Site pCO2 pO2 HCO3 ABG pH ABG Total CO2 ABG O2 Saturation ABG Base Excess Zeus Test ABG Potassium A-a O2 Difference Respiratory Index Sodium Chloride Glucose Lactate Vent Mode FiO2 Inspiratory BiPAP Expiratory BiPAP Crit Value Called To Crit Value Called By Crit Value Read Back Blood Gas Notified Time POC Glucose (mg/dL) 126 H 164 H 104 Arterial Blood Potassium 04/28/17 04/28/17 12:33 13:56 Puncture Site Lra pCO2 89 H* pO2 236 H HCO3 30.7 H ABG pH 7.24 L ABG Total CO2 40.8 H ABG O2 Saturation 100.2 H ABG Base Excess 7.3 H Zeus Test Pos ABG Potassium 5.6 H A-a O2 Difference 366.0 Respiratory Index 1.6 Sodium 137.0 Chloride 105.0 Glucose 113 H Lactate 0.7 Vent Mode Bipap FiO2 100.0 Inspiratory BiPAP 12 Expiratory BiPAP 6 Crit Value Called To Dr capri newman Crit Value Called By Hernandez claudio specialty cook Crit Value Read Back Y Blood Gas Notified Time 1401 POC Glucose (mg/dL) 125 H Arterial Blood Potassium 5.6 H Assessment & Plan - Assessment and Plan (Free Text) Assessment: 71F Respiratory distress 2/2 fluid overload Cardio: (Costa) Echo shows normal LVF. Echo shows RV is dilated and hypokinetic. Elevated right- sided pressure. JEWELS ordered for tomorrow. Eliquis 5 PO BID Coreg 12.5 PO BID Digoxin 0.125 PO Daily Cozaar 25 PO Daily Aldactone 25 PO Daily Pulm: (Pagulayan) CXR shows diffuse confluent airspace opacities throughout both lungs suggestive of prominent edema and or infiltrate, moderate bilateral pleural effusions, and cardiomegaly. Duoneb 3 INH Q6 Solu-Medrol 40 IV BID Azithromycin 500 IV Q24 Rocephin 1 IV Daily vanco Bipap FiO2 100 ABG: pCO2 89, pO2 236, HCO3 30.7, pH 7.24 lasix drip will repeat ABG Endo: Metformin 500 PO ACBD Renal: BUN/ CR = 30/1.0 (04/26) I/O: +600 mls/24hrs Heme/Onc: H/H: 9.7/30.7 ID: WBC 4.7 (04/26) Blood cultures ordered. Wound cultures ordered. PIcc placed <Marisela Artis - Last Filed: 05/01/17 02:48> Meds - Medications Medications: Current Medications Acetylcysteine (Acetylcysteine 20%) 4 ml INH RQ4 [facility] Last Admin: 05/01/17 00:11 Dose: 4 ml Albuterol/Ipratropium (Duoneb 3 Mg/0.5 Mg (3 Ml) Ud) 3 ml INH RQ4 [facility] Last Admin: 05/01/17 00:11 Dose: 3 ml Apixaban (Eliquis) 5 mg PO BID [facility] [place] Last Admin: 04/30/17 18:20 Dose: 5 mg Carvedilol (Coreg) 12.5 mg PO BID [facility] Last Admin: 04/30/17 18:20 Dose: 12.5 mg Digoxin (Lanoxin) 0.125 mg PO DAILY@1800 [facility] [place] Last Admin: 04/30/17 18:20 Dose: 0.125 mg Vancomycin HCl 1 gm/ Sodium (Chloride) 200 mls @ 166.7 mls/hr IVPB Q24H [facility] [place] Last Admin: 04/30/17 18:21 Dose: 166.7 mls/hr Cefepime HCl 1 gm/ Dextrose 50 mls @ 100 mls/hr IVPB Q12H [facility] [place] Last Admin: 04/30/17 22:00 Dose: 100 mls/hr Furosemide 100 mg/ Sodium (Chloride) 100 mls @ 5 mls/hr IV .Q20H [facility] PRN Reason: 5 MG/HR Last Admin: 05/01/17 02:06 Dose: 5 mls/hr Losartan Potassium (Cozaar) 25 mg PO DAILY [facility] [place] Last Admin: 04/30/17 09:28 Dose: 25 mg Methylprednisolone (Solu-Medrol) 40 mg IV BID [facility] Last Admin: 04/30/17 18:21 Dose: 40 mg Nystatin (Nystop Topical Powder) 1 applic TOP BID [facility] Last Admin: 04/30/17 18:21 Dose: 1 applic Spironolactone (Aldactone) 25 mg PO DAILY [facility] [place] Last Admin: 04/30/17 09:27 Dose: 25 mg Vitamin A (Vitamin A & D Oint Ud Foilpak) 1 ea TOP BID [facility] Last Admin: 04/30/17 18:22 Dose: 1 ea Results - Vital Signs Recent Vital Signs: Last Vital Signs Temp 97.3 F L 05/01/17 00:00 Pulse 73 05/01/17 02:01 Resp 26 H 05/01/17 02:01 BP 100/59 L 05/01/17 02:06 Pulse Ox 95 05/01/17 02:01 - Labs Result Diagrams: 04/30/17 05:48 04/30/17 05:48 Labs: Laboratory Results - last 24 hr 04/30/17 04/30/17 04/30/17 05:48 05:48 12:30 WBC 3.8 L RBC 3.61 L Hgb 9.6 L Hct 29.9 L MCV 82.6 MCH 26.5 L MCHC 32.0 L RDW 16.3 H Plt Count 154 MPV 9.1 Neut % (Auto) 80.2 H Lymph % (Auto) 14.2 L Kinney % (Auto) 5.4 Eos % (Auto) 0.0 Baso % (Auto) 0.2 Neut # 3.1 Lymph # 0.5 L Kinney # 0.2 Eos # 0.0 Baso # 0.0 Puncture Site L/b pCO2 62 H pO2 78 L HCO3 34.6 H ABG pH 7.41 ABG Total CO2 41.2 H ABG O2 Saturation 97.3 ABG Base Excess 12.5 H ABG Hemoglobin 10.6 L ABG Carboxyhemoglobin 1.7 H POC ABG HHb (Measured) 2.6 ABG Methemoglobin 1.4 Zeus Test Na A-a O2 Difference 94.0 Respiratory Index 1.2 Hgb O2 Saturation 94.3 L FiO2 35.0 Blood Gas Comments Pt on hg flow 35% Crit Value Called To Dr rogers Crit Value Called By Aman [facility] Crit Value Read Back Y Blood Gas Notified Time 1240 Sodium 134 Potassium 5.2 Chloride 92 L Carbon Dioxide 39 H Anion Gap 8 L BUN 43 H Creatinine 0.9 Est GFR ( Amer) > 60 Est GFR (Non-Af Amer) > 60 Random Glucose 154 H Calcium 8.5 L Phosphorus 3.7 Magnesium 1.7 Total Bilirubin 0.4 AST 20 ALT 26 Alkaline Phosphatase 54 Total Protein 6.2 L Albumin 3.1 L Globulin 3.1 Albumin/Globulin Ratio 1.0 Attending/Attestation - Attestation I have personally seen and examined this patient.: Yes I have fully participated in the care of the patient.: Yes I have reviewed all pertinent clinical information: Yes Notes (Text): 05/01/17 02:48 Agree with the resident notes, discussion was made to during the rounds. Labs reviewed Continue the current treatment
--- NOTE | 2017-04-28 15:10 | CP.PCM.PN ---
Subjective - Date & Time of Evaluation Date of Evaluation: 04/28/17 Time of Evaluation: 03:00 - Subjective Subjective: Patient suddenly disaturated and tachypniec with letahrgy.A rapid response was called and placed on Oxygen at 100%. Patient is more alert now. ECHO was done which showed right pulmonary hypertension. Stat chest X-ray was done which shows worst edema with bilateral pleural effusion. The wound at the right leg is dry. She has a right groin infection. These will be cultured and IV antibiotics will started. Objective - Vital Signs/Intake and Output Vital Signs (last 24 hours): Temp Pulse Resp BP Pulse Ox 97.7 F 84 20 112/66 96 04/28/17 09:07 04/28/17 14:19 04/28/17 09:07 04/28/17 09:40 04/28/17 09:07 Intake and Output: 04/28/17 04/28/17 06:59 18:59 Intake Total 600 Balance 600 - Medications Medications: Current Medications Apixaban (Eliquis) 5 mg PO BID [facility] Last Admin: 04/28/17 09:40 Dose: 5 mg Carvedilol (Coreg) 12.5 mg PO BID [facility] Last Admin: 04/28/17 09:40 Dose: 12.5 mg Digoxin (Lanoxin) 0.125 mg PO DAILY@1800 [facility] Last Admin: 04/27/17 18:39 Dose: 0.125 mg Furosemide (Lasix) 40 mg IVP DAILY [facility] Last Admin: 04/28/17 09:40 Dose: 40 mg Cefepime HCl (Maxipime Iv 1 Gm Premix) 1 gm in 50 mls @ 100 mls/hr IVPB Q24H [facility] Losartan Potassium (Cozaar) 25 mg PO DAILY [facility] Last Admin: 04/28/17 09:40 Dose: 25 mg Metformin HCl (Glucophage Xr) 500 mg PO ACBD [facility] Last Admin: 04/28/17 08:08 Dose: 500 mg Spironolactone (Aldactone) 25 mg PO DAILY [facility] Last Admin: 04/28/17 09:40 Dose: 25 mg - Labs Labs: 04/26/17 08:18 04/26/17 08:18 PT 13.7 SECONDS (9.7-12.2) H 04/24/17 14:34 INR 1.2 04/24/17 14:34 APTT 29 SECONDS (21-34) 04/24/17 14:34 - Head Exam Head Exam: ATRAUMATIC, NORMAL INSPECTION, NORMOCEPHALIC - Eye Exam Pupil Exam: PERRL - Respiratory Exam Respiratory Exam: Decreased Breath Sounds, Rales, Respiratory Distress - Cardiovascular Exam Cardiovascular Exam: Irregular Rhythm - GI/Abdominal Exam GI & Abdominal Exam: Soft - Rectal Exam Rectal Exam: Deferred - Extremities Exam Extremities Exam: Pedal Edema Additional comments: Both legs are swollen and skin showed trophic changes sec. to chronic edema. One small lesion at the posterior lower leg. - Neurological Exam Neurological Exam: Alert, Awake Neuro motor strength exam: Left Upper Extremity: 0 Additional comments: Patient shows flpping at right6 hand. - Psychiatric Exam Psychiatric exam: Normal Affect, Normal Mood - Skin Skin Exam: Dry, Intact Assessment and Plan (1) NIDDY (non-insulin dependent diabetes mellitus in young) Status: Chronic (2) Atrial fibrillation Status: Acute (3) CHF (congestive heart failure) Status: Acute (4) HTN (hypertension) Status: Chronic (5) Type 2 diabetes mellitus Status: Chronic
[2017-04-28] MEDS ORDERED: Furosemide 100 MG in Dextrose 5% In Water 90 ML IV SCH (15:30)
[2017-04-28 16:33] LABS: BASO % 0.8 % (0.0-2.0); EOS % 0.7 % (0.0-4.0); HEMOGLOBIN 9.6 g/dL (11.0-16.0); LYMPH # 0.8 K/uL (1.0-4.3); LYMPH % 17.2 % (20.0-40.0); MEAN CELL VOLUME 83.7 fL (81.0-99.0); MEAN CORPUSCULAR HEMOGLOBIN 25.8 pg (27.0-31.0); MEAN CORPUSCULAR HGB CONC 30.9 g/dL (33.0-37.0); MEAN PLATELET VOLUME 8.6 fL (7.2-11.7); MONO # 0.5 K/uL (0.0-0.8); MONO % 10.3 % (0.0-10.0); NEUT # 3.4 K/uL (1.8-7.0); NRBC % 0.3 % (0.0-2.0); RBC 3.71 Mil/uL (3.80-5.20); WHITE BLOOD COUNT 4.8 K/uL (4.8-10.8)
[2017-04-28 16:37] LABS: ARTERIAL BLOOD GAS HCO3 29.9 mmol/L (21-28); ARTERIAL BLOOD GAS O2 SAT 97.2 % (95-98); ARTERIAL BLOOD GAS PCO2 95 mm/Hg (35-45); ARTERIAL BLOOD GAS PH 7.21 (7.35-7.45); ARTERIAL BLOOD GAS PO2 78 mm/Hg (80-100); ARTERIAL BLOOD GAS TCO2 40.9 mmol/L (22-28)
[2017-04-28 16:44] LABS: ALBUMIN 3.4 g/dL (3.5-5.0); ALT/SGPT 30 U/L (9-52); AST/SGOT 24 U/L (14-36); BLOOD UREA NITROGEN 37 mg/dL (7-17); CALCIUM 8.3 mg/dl (8.6-10.4); GFR AFRICAN-AMERICAN > 60; GFR NON-AFRICAN AMERICAN > 60; MAGNESIUM 1.6 mg/dL (1.6-2.3)
--- NOTE | 2017-04-28 17:16 | RAD ---
HISTORY: picc COMPARISON: Chest x-ray performed 04/28/17 TECHNIQUE: Chest, one view. FINDINGS: Right-sided PICC extends to the expected location of the cavoatrial junction. External defibrillator pad projects over the right lower chest/ upper abdomen. Numerous external wires and leads obscure evaluation of the underlying parenchyma. LUNGS: Prominent bilateral diffuse confluent airspace opacities may reflect edema or infiltrate. Bilateral pleural effusions. No definite pneumothorax. CARDIOVASCULAR: Cardiomegaly. OSSEOUS STRUCTURES: Degenerative changes. VISUALIZED UPPER ABDOMEN: Unremarkable. OTHER FINDINGS: None. IMPRESSION: Right-sided PICC extends to the expected location of the cavoatrial junction. External defibrillator pad projects over the right lower chest/ upper abdomen. Prominent bilateral diffuse confluent airspace opacities may reflect edema or infiltrate. Bilateral pleural effusions. Cardiomegaly.
[2017-04-28] MEDS: Vancomycin 1 GM in Sodium Chloride 0.9% 200 ML IVPB SCH (17:49)
[2017-04-28] MEDS: MethylPREDNISolone 40 mg Vial IV SCH (17:51)
[2017-04-28] MEDS ORDERED: Cefepime IV 1 gm in Dextrose 1 GM/50 ML BAG IVPB SCH (18:00)
[2017-04-28] MEDS ORDERED: MethylPREDNISolone 40 mg Vial IV SCH (18:00)
--- NOTE | 2017-04-28 18:07 | CP.PCM.PN ---
Subjective - Date & Time of Evaluation Date of Evaluation: 04/28/17 Time of Evaluation: 18:00 - Subjective Subjective: events noted. patient transferred to ICU due to hypercapneic respiratory failure. family is at the bedside. she feels more comfortable, awake on BiPAP. Objective - Vital Signs/Intake and Output Vital Signs (last 24 hours): Temp Pulse Resp BP Pulse Ox 97.7 F 84 20 99/37 L 96 04/28/17 09:07 04/28/17 14:19 04/28/17 09:07 04/28/17 16:46 04/28/17 09:07 Intake and Output: 04/28/17 04/28/17 06:59 18:59 Intake Total 600 Balance 600 - Medications Medications: Current Medications Albuterol/Ipratropium (Duoneb 3 Mg/0.5 Mg (3 Ml) Ud) 3 ml INH RQ6 [facility] Apixaban (Eliquis) 5 mg PO BID [facility] Last Admin: 04/28/17 09:40 Dose: 5 mg Carvedilol (Coreg) 12.5 mg PO BID [facility] Last Admin: 04/28/17 09:40 Dose: 12.5 mg Digoxin (Lanoxin) 0.125 mg PO DAILY@1800 [facility] Last Admin: 04/27/17 18:39 Dose: 0.125 mg Furosemide (Lasix) 40 mg IVP DAILY [facility] Last Admin: 04/28/17 09:40 Dose: 40 mg Furosemide 100 mg/ Dextrose 100 mls @ 5 mls/hr IV .Q20H [facility] PRN Reason: 5 MG/HR Last Admin: 04/28/17 16:46 Dose: 5 mls/hr Ceftriaxone Sodium 1 gm/ (Sodium Chloride) 100 mls @ 100 mls/hr IVPB DAILY [facility] Last Admin: 04/28/17 16:56 Dose: 100 mls/hr Vancomycin HCl 1 gm/ Sodium (Chloride) 200 mls @ 166.7 mls/hr IVPB Q24H [facility] Last Admin: 04/28/17 17:49 Dose: 166.7 mls/hr Losartan Potassium (Cozaar) 25 mg PO DAILY [facility] Last Admin: 04/28/17 09:40 Dose: 25 mg Metformin HCl (Glucophage Xr) 500 mg PO ACBD [facility] Last Admin: 04/28/17 17:05 Dose: Not Given Methylprednisolone (Solu-Medrol) 40 mg IV BID [facility] Last Admin: 04/28/17 17:51 Dose: 40 mg Nystatin (Nystop Topical Powder) 1 applic TOP BID [facility] Last Admin: 04/28/17 17:32 Dose: 1 applic Spironolactone (Aldactone) 25 mg PO DAILY [facility] Last Admin: 04/28/17 09:40 Dose: 25 mg - Labs Labs: 04/28/17 16:28 04/28/17 16:28 PT 13.7 SECONDS (9.7-12.2) H 04/24/17 14:34 INR 1.2 04/24/17 14:34 APTT 29 SECONDS (21-34) 04/24/17 14:34 - Constitutional Appears: Chronically Ill - Head Exam Head Exam: NORMAL INSPECTION - Eye Exam Eye Exam: Normal appearance - ENT Exam ENT Exam: Mucous Membranes Moist - Neck Exam Neck Exam: Full ROM - Respiratory Exam Respiratory Exam: Decreased Breath Sounds - Cardiovascular Exam Cardiovascular Exam: Irregular Rhythm - GI/Abdominal Exam GI & Abdominal Exam: Normal Bowel Sounds - Rectal Exam Rectal Exam: Deferred - Extremities Exam Extremities Exam: Pedal Edema - Back Exam Back Exam: NORMAL INSPECTION - Neurological Exam Neurological Exam: Alert - Psychiatric Exam Psychiatric exam: Normal Affect - Skin Skin Exam: Normal Color Assessment and Plan (1) Atrial fibrillation Assessment & Plan: rate controlled. maintain current medications. may have to hold anticoagulation if throacentesis is planned. Status: Acute (2) Right heart failure due to pulmonary hypertension Assessment & Plan: will need diuretic therapy. continue BiPAP. Status: Acute
[2017-04-28] MEDS: Digoxin 125 mcg (0.125 mg) Tab PO SCH (18:16)
[2017-04-28 18:34] LABS: ARTERIAL BLOOD GAS HEMOGLOBIN 9.6 g/dL (11.7-17.4); ARTERIAL BLOOD GAS O2 SAT 98.2 % (95-98); ARTERIAL BLOOD GAS PCO2 81 mm/Hg (35-45); ARTERIAL BLOOD GAS PH 7.25 (7.35-7.45); ARTERIAL BLOOD GAS PO2 87 mm/Hg (80-100)
[2017-04-28] MEDS: Albuterol-Ipratrop 3 mg / 0.5 (3 ml) UD INH SCH (21:15)
[2017-04-28 21:36] LABS: ARTERIAL BLOOD GAS HCO3 30.4 mmol/L (21-28); ARTERIAL BLOOD GAS HEMOGLOBIN 9.7 g/dL (11.7-17.4); ARTERIAL BLOOD GAS PCO2 85 mm/Hg (35-45); ARTERIAL BLOOD GAS PH 7.24 (7.35-7.45); ARTERIAL BLOOD GAS PO2 89 mm/Hg (80-100)
[2017-04-29] MEDS: Albuterol-Ipratrop 3 mg / 0.5 (3 ml) UD INH SCH ×5 (01:37→20:12)
[2017-04-29 06:40] LABS: ABG ALLEN TEST POS; ARTERIAL BLOOD GAS HCO3 30.2 mmol/L (21-28); ARTERIAL BLOOD GAS HEMOGLOBIN 9.7 g/dL (11.7-17.4); ARTERIAL BLOOD GAS O2 SAT 97.1 % (95-98); ARTERIAL BLOOD GAS PCO2 75 mm/Hg (35-45); ARTERIAL BLOOD GAS PH 7.28 (7.35-7.45); ARTERIAL BLOOD GAS PO2 72 mm/Hg (80-100); ARTERIAL BLOOD GAS TCO2 37.5 mmol/L (22-28)
[2017-04-29 06:42] LABS: BASO % 0.4 % (0.0-2.0); HEMOGLOBIN 9.2 g/dL (11.0-16.0); LYMPH # 0.6 K/uL (1.0-4.3); LYMPH % 15.3 % (20.0-40.0); MEAN CORPUSCULAR HEMOGLOBIN 25.9 pg (27.0-31.0); MEAN CORPUSCULAR HGB CONC 30.9 g/dL (33.0-37.0); MEAN PLATELET VOLUME 8.9 fL (7.2-11.7); MONO # 0.1 K/uL (0.0-0.8); MONO % 3.4 % (0.0-10.0); NEUT % 80.9 % (50.0-75.0); NRBC % 0.2 % (0.0-2.0); RBC 3.56 Mil/uL (3.80-5.20); RED CELL DISTRIBUTION WIDTH 16.8 % (11.5-14.5); WHITE BLOOD COUNT 3.7 K/uL (4.8-10.8)
[2017-04-29 06:52] LABS: ALBUMIN 2.8 g/dL (3.5-5.0); ALT/SGPT 27 U/L (9-52); AST/SGOT 20 U/L (14-36); BLOOD UREA NITROGEN 41 mg/dL (7-17); CALCIUM 8.2 mg/dl (8.6-10.4); GFR AFRICAN-AMERICAN > 60; GFR NON-AFRICAN AMERICAN > 60; MAGNESIUM 1.6 mg/dL (1.6-2.3)
[2017-04-29] MEDS ORDERED: Acetylcysteine 20% Inhal Soln (4ml) INH SCH (09:30)
[2017-04-29] MEDS: Furosemide 100 MG in Dextrose 5% In Water 90 ML IV SCH ×2 (10:25→19:31)
[2017-04-29] MEDS: MethylPREDNISolone 40 mg Vial IV SCH ×2 (10:27→17:16)
[2017-04-29] MEDS: Vitamins A & D Oint UD Foilpak TOP SCH ×2 (10:27→17:17)
--- NOTE | 2017-04-29 10:53 | CP.CCUPN ---
<Aakash Ruff - Last Filed: 04/29/17 15:36> CCU Subjective - Physician Review Subjective (Free Text): 04/29/17 12:28 patient seen and examined at bedside patient looks much more comfortable. OOB to chair on high flow tolerated diet this AM explained that would benefit from sleep study will repeat CXR given high dose lasix Family at bedside CCU Objective - Vital Signs / Intake & Output Vital Signs (Last 4 hours): Vital Signs Temp Pulse Resp BP Pulse Ox 04/29/17 10:26 104/49 L 04/29/17 10:25 109/49 L 04/29/17 08:51 82 04/29/17 08:48 98.5 F 100 04/29/17 08:02 78 13 106/58 L 100 04/29/17 08:00 81 16 100 04/29/17 07:51 81 20 115/58 L 96 04/29/17 07:00 88 21 100 Intake and Output (Last 8hrs): Intake & Output 04/28/17 04/29/17 04/29/17 22:59 06:59 14:59 Intake Total 450 40 10 Output Total 765 520 265 Balance -315 -480 -255 Weight 290 lb 6.4 oz Intake: Intake, IV Amount 330 40 10 Right Distal Port Upper 30 40 10 arm Right Proximal Port PICC 300 Oral 120 Output: Urine 765 520 265 Urethral (Cardoza) 765 520 265 - Physical Exam Head: Positive for: Atraumatic, Normocephalic Pupils: Positive for: PERRL Extroacular Muscles: Positive for: EOMI Conjunctiva: Positive for: Normal Mouth: Positive for: Moist Mucous Membranes Neck: Positive for: Normal Range of Motion Respiratory/Chest: Positive for: Decreased Breath Sounds Cardiovascular: Positive for: Regular Rate and Rhythm, Normal S1, S2 Abdomen: Positive for: Normal Bowel Sounds. Negative for: Tenderness, Distention, Peritoneal Signs Skin: Positive for: Warm, Dry. Negative for: Rashes, Normal Color - Medications Active Medications: Active Medications Generic Name Dose Route Start Last Admin Trade Name Freq PRN Reason Stop Dose Admin Acetylcysteine 4 ml 04/29/17 09:30 Acetylcysteine 20% INH Q4H OSNAL Albuterol/Ipratropium 3 ml 04/29/17 12:00 Duoneb 3 Mg/0.5 Mg (3 Ml) Ud INH RQ4 SONAL Apixaban 5 mg 04/25/17 10:00 04/29/17 10:26 Eliquis PO 5 mg BID SONAL Administration Carvedilol 12.5 mg 04/24/17 18:30 04/29/17 10:26 Coreg PO 12.5 mg BID SONAL Administration Digoxin 0.125 mg 04/25/17 18:00 04/28/17 18:16 Lanoxin PO 0.125 mg DAILY@1800 SONAL Administration Vancomycin HCl 1 gm/ Sodium 200 mls @ 166.7 mls/hr 04/28/17 17:30 04/28/17 17 :49 Chloride IVPB 166.7 mls/hr Q24H SONAL Administration Cefepime HCl 1 gm/ Dextrose 50 mls @ 100 mls/hr 04/29/17 10:00 04/29/17 10:28 IVPB 100 mls/hr Q12H SONAL Administration Furosemide 100 mg/ Dextrose 100 mls @ 10 mls/hr 04/29/17 09:26 04/29/17 10:25 IV 10 mls/hr .Q10H SONAL Administration 10 MG/HR Losartan Potassium 25 mg 04/25/17 10:00 04/29/17 10:27 Cozaar PO 25 mg DAILY SONAL Administration Methylprednisolone 40 mg 04/28/17 18:00 04/29/17 10:27 Solu-Medrol IV 40 mg BID SONAL Administration Nystatin 1 applic 04/28/17 18:00 04/29/17 10:28 Nystop Topical Powder TOP 1 applic BID SONAL Administration Spironolactone 25 mg 04/25/17 10:00 04/29/17 10:26 Aldactone PO 25 mg DAILY SONAL Administration Vitamin A 1 ea 04/29/17 10:00 04/29/17 10:27 Vitamin A & D Oint Ud Foilpak TOP 1 ea BID SONAL Administration - Patient Studies Lab Studies: Lab Studies 04/29/17 04/29/17 04/29/17 Range/Units 06:36 06:27 06:27 WBC 3.7 L (4.8-10.8) K/uL RBC 3.56 L (3.80-5.20) Mil/uL Hgb 9.2 L (11.0-16.0) g/dL Hct 29.9 L (34.0-47.0) % MCV 84.0 (81.0-99.0) fL MCH 25.9 L (27.0-31.0) pg MCHC 30.9 L (33.0-37.0) g/dL RDW 16.8 H (11.5-14.5) % Plt Count 154 (130-400) K/uL MPV 8.9 (7.2-11.7) fL Neut % (Auto) 80.9 H (50.0-75.0) % Lymph % (Auto) 15.3 L (20.0-40.0) % [place] % (Auto) 3.4 (0.0-10.0) % Eos % (Auto) 0.0 (0.0-4.0) % Baso % (Auto) 0.4 (0.0-2.0) % Neut # 3.0 (1.8-7.0) K/uL Lymph # 0.6 L (1.0-4.3) K/uL [place] # 0.1 (0.0-0.8) K/uL Eos # 0.0 (0.0-0.7) K/uL Baso # 0.0 (0.0-0.2) K/uL Puncture Site Rr pCO2 75 H* (35-45) mm/Hg pO2 72 L (80-100) mm/Hg HCO3 30.2 H (21-28) mmol/L ABG pH 7.28 L (7.35-7.45) ABG Total CO2 37.5 H (22-28) mmol/L ABG O2 Saturation 97.1 (95-98) % ABG Base Excess 6.8 H (-2.0-3.0) mmol/L ABG Hemoglobin 9.7 L (11.7-17.4) g/dL ABG Carboxyhemoglobin 1.6 H (0.5-1.5) % POC ABG HHb (Measured) 2.8 (0.0-5.0) % ABG Methemoglobin 0.9 (0.0-3.0) % Zeus Test Pos ABG Potassium (3.6-5.2) mmol/L A-a O2 Difference 262.0 mm/Hg Respiratory Index 3.6 Hgb O2 Saturation 94.7 L (95.0-98.0) % Sodium 134 (132-148) mmol/l Chloride 96 L (98-107) mmol/L Glucose (65-105) mg/dl Lactate (0.7-2.1) mmol/L Vent Mode Bipap Mechanical Rate FiO2 60.0 % Inspiratory BiPAP 20 Expiratory BiPAP 10 Crit Value Called To Dr. 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 Crit Value Read Back Y Blood Gas Notified Time 640 Potassium 5.4 H (3.6-5.2) mmol/L Carbon Dioxide 34 H (22-30) mmol/L Anion Gap 8 L (10-20) BUN 41 H (7-17) mg/dL Creatinine 0.9 (0.7-1.2) mg/dL Est GFR ( Amer) > 60 Est GFR (Non-Af Amer) > 60 POC Glucose (mg/dL) (65-110) mg/dL Random Glucose 95 (65-105) mg/dL Calcium 8.2 L (8.6-10.4) mg/dl Phosphorus 4.3 (2.5-4.5) mg/dL Magnesium 1.6 (1.6-2.3) mg/dL Total Bilirubin 0.4 (0.2-1.3) mg/dL AST 20 (14-36) U/L ALT 27 (9-52) U/L Alkaline Phosphatase 55 (38-126) U/L Total Protein 5.7 L (6.3-8.3) g/dL Albumin 2.8 L (3.5-5.0) g/dL Globulin 2.9 (2.2-3.9) gm/dL Albumin/Globulin Ratio 1.0 (1.0-2.1) TSH 3rd Generation (0.46-4.68) mIU/L Arterial Blood Potassium (3.6-5.2) mmol/L 04/28/17 04/28/17 04/28/17 Range/Units 21:30 18:31 16:30 WBC (4.8-10.8) K/uL RBC (3.80-5.20) Mil/uL Hgb (11.0-16.0) g/dL Hct (34.0-47.0) % MCV (81.0-99.0) fL MCH (27.0-31.0) pg MCHC (33.0-37.0) g/dL RDW (11.5-14.5) % Plt Count (130-400) K/uL MPV (7.2-11.7) fL Neut % (Auto) (50.0-75.0) % Lymph % (Auto) (20.0-40.0) % [place] % (Auto) (0.0-10.0) % Eos % (Auto) (0.0-4.0) % Baso % (Auto) (0.0-2.0) % Neut # (1.8-7.0) K/uL Lymph # (1.0-4.3) K/uL [place] # (0.0-0.8) K/uL Eos # (0.0-0.7) K/uL Baso # (0.0-0.2) K/uL Puncture Site Rra Rra Rra pCO2 85 H* 81 H* 95 H* (35-45) mm/Hg pO2 89 87 78 L (80-100) mm/Hg HCO3 30.4 H 30.0 H 29.9 H (21-28) mmol/L ABG pH 7.24 L 7.25 L 7.21 L (7.35-7.45) ABG Total CO2 39.0 H 38.0 H 40.9 H (22-28) mmol/L ABG O2 Saturation 98.0 98.2 H 97.2 (95-98) % ABG Base Excess 7.0 H 6.5 H 6.5 H (-2.0-3.0) mmol/L ABG Hemoglobin 9.7 L 9.6 L (11.7-17.4) g/dL ABG Carboxyhemoglobin 1.6 H 1.6 H (0.5-1.5) % POC ABG HHb (Measured) 1.9 1.8 (0.0-5.0) % ABG Methemoglobin 1.1 0.9 (0.0-3.0) % Zeus Test Na Na Na ABG Potassium 5.5 H (3.6-5.2) mmol/L A-a O2 Difference 233.0 240.0 231.0 mm/Hg Respiratory Index 2.6 2.8 3.0 Hgb O2 Saturation 95.5 95.8 (95.0-98.0) % Sodium 138.0 (132-148) mmol/l Chloride 103.0 (98-107) mmol/L Glucose 107 H (65-105) mg/dl Lactate 0.6 L (0.7-2.1) mmol/L Vent Mode Bipap Bipap Bipap Mechanical Rate 12 12 12 FiO2 60.0 60.0 60.0 % Inspiratory BiPAP 18 18 12 Expiratory BiPAP 8 8 6 Crit Value Called To Dr mel drummond Crit Value Called By Pallavi rt Pallavi rt Pallavi rt Crit Value Read Back Y Y Y Blood Gas Notified Time 2135 1833 1637 Potassium (3.6-5.2) mmol/L Carbon Dioxide (22-30) mmol/L Anion Gap (10-20) BUN (7-17) mg/dL Creatinine (0.7-1.2) mg/dL Est GFR ( Amer) Est GFR (Non-Af Amer) POC Glucose (mg/dL) (65-110) mg/dL Random Glucose (65-105) mg/dL Calcium (8.6-10.4) mg/dl Phosphorus (2.5-4.5) mg/dL Magnesium (1.6-2.3) mg/dL Total Bilirubin (0.2-1.3) mg/dL AST (14-36) U/L ALT (9-52) U/L Alkaline Phosphatase (38-126) U/L Total Protein (6.3-8.3) g/dL Albumin (3.5-5.0) g/dL Globulin (2.2-3.9) gm/dL Albumin/Globulin Ratio (1.0-2.1) TSH 3rd Generation (0.46-4.68) mIU/L Arterial Blood Potassium 5.5 H (3.6-5.2) mmol/L 04/28/17 04/28/17 04/28/17 Range/Units 16:28 16:28 13:56 WBC 4.8 (4.8-10.8) K/uL RBC 3.71 L (3.80-5.20) Mil/uL Hgb 9.6 L (11.0-16.0) g/dL Hct 31.0 L (34.0-47.0) % MCV 83.7 (81.0-99.0) fL MCH 25.8 L (27.0-31.0) pg MCHC 30.9 L (33.0-37.0) g/dL RDW 17.0 H (11.5-14.5) % Plt Count 147 (130-400) K/uL MPV 8.6 (7.2-11.7) fL Neut % (Auto) 71.0 (50.0-75.0) % Lymph % (Auto) 17.2 L (20.0-40.0) % [place] % (Auto) 10.3 H (0.0-10.0) % Eos % (Auto) 0.7 (0.0-4.0) % Baso % (Auto) 0.8 (0.0-2.0) % Neut # 3.4 (1.8-7.0) K/uL Lymph # 0.8 L (1.0-4.3) K/uL [place] # 0.5 (0.0-0.8) K/uL Eos # 0.0 (0.0-0.7) K/uL Baso # 0.0 (0.0-0.2) K/uL Puncture Site Lra pCO2 89 H* (35-45) mm/Hg pO2 236 H (80-100) mm/Hg HCO3 30.7 H (21-28) mmol/L ABG pH 7.24 L (7.35-7.45) ABG Total CO2 40.8 H (22-28) mmol/L ABG O2 Saturation 100.2 H (95-98) % ABG Base Excess 7.3 H (-2.0-3.0) mmol/L ABG Hemoglobin (11.7-17.4) g/dL ABG Carboxyhemoglobin (0.5-1.5) % POC ABG HHb (Measured) (0.0-5.0) % ABG Methemoglobin (0.0-3.0) % Zeus Test Pos ABG Potassium 5.6 H (3.6-5.2) mmol/L A-a O2 Difference 366.0 mm/Hg Respiratory Index 1.6 Hgb O2 Saturation (95.0-98.0) % Sodium 133 137.0 (132-148) mmol/l Chloride 96 L 105.0 (98-107) mmol/L Glucose 113 H (65-105) mg/dl Lactate 0.7 (0.7-2.1) mmol/L Vent Mode Bipap Mechanical Rate FiO2 100.0 % Inspiratory BiPAP 12 Expiratory BiPAP 6 Crit Value Called To Dr capri newman Crit Value Called By Hernandez claudio pipe turner Crit Value Read Back Y Blood Gas Notified Time 1401 Potassium 5.5 H (3.6-5.2) mmol/L Carbon Dioxide 35 H (22-30) mmol/L Anion Gap 8 L (10-20) BUN 37 H (7-17) mg/dL Creatinine 0.9 (0.7-1.2) mg/dL Est GFR ( Amer) > 60 Est GFR (Non-Af Amer) > 60 POC Glucose (mg/dL) (65-110) mg/dL Random Glucose 103 (65-105) mg/dL Calcium 8.3 L (8.6-10.4) mg/dl Phosphorus 4.0 (2.5-4.5) mg/dL Magnesium 1.6 (1.6-2.3) mg/dL Total Bilirubin 0.6 (0.2-1.3) mg/dL AST 24 (14-36) U/L ALT 30 (9-52) U/L Alkaline Phosphatase 61 (38-126) U/L Total Protein 6.7 (6.3-8.3) g/dL Albumin 3.4 L (3.5-5.0) g/dL Globulin 3.3 (2.2-3.9) gm/dL Albumin/Globulin Ratio 1.0 (1.0-2.1) TSH 3rd Generation 1.36 (0.46-4.68) mIU/L Arterial Blood Potassium 5.6 H (3.6-5.2) mmol/L 04/28/17 Range/Units 12:33 WBC (4.8-10.8) K/uL RBC (3.80-5.20) Mil/uL Hgb (11.0-16.0) g/dL Hct (34.0-47.0) % MCV (81.0-99.0) fL MCH (27.0-31.0) pg MCHC (33.0-37.0) g/dL RDW (11.5-14.5) % Plt Count (130-400) K/uL MPV (7.2-11.7) fL Neut % (Auto) (50.0-75.0) % Lymph % (Auto) (20.0-40.0) % [place] % (Auto) (0.0-10.0) % Eos % (Auto) (0.0-4.0) % Baso % (Auto) (0.0-2.0) % Neut # (1.8-7.0) K/uL Lymph # (1.0-4.3) K/uL [place] # (0.0-0.8) K/uL Eos # (0.0-0.7) K/uL Baso # (0.0-0.2) K/uL Puncture Site pCO2 (35-45) mm/Hg pO2 (80-100) mm/Hg HCO3 (21-28) mmol/L ABG pH (7.35-7.45) ABG Total CO2 (22-28) mmol/L ABG O2 Saturation (95-98) % ABG Base Excess (-2.0-3.0) mmol/L ABG Hemoglobin (11.7-17.4) g/dL ABG Carboxyhemoglobin (0.5-1.5) % POC ABG HHb (Measured) (0.0-5.0) % ABG Methemoglobin (0.0-3.0) % Zeus Test ABG Potassium (3.6-5.2) mmol/L A-a O2 Difference mm/Hg Respiratory Index Hgb O2 Saturation (95.0-98.0) % Sodium (132-148) mmol/l Chloride (98-107) mmol/L Glucose (65-105) mg/dl Lactate (0.7-2.1) mmol/L Vent Mode Mechanical Rate FiO2 % Inspiratory BiPAP Expiratory BiPAP Crit Value Called To Crit Value Called By Crit Value Read Back Blood Gas Notified Time Potassium (3.6-5.2) mmol/L Carbon Dioxide (22-30) mmol/L Anion Gap (10-20) BUN (7-17) mg/dL Creatinine (0.7-1.2) mg/dL Est GFR ( Amer) Est GFR (Non-Af Amer) POC Glucose (mg/dL) 125 H (65-110) mg/dL Random Glucose (65-105) mg/dL Calcium (8.6-10.4) mg/dl Phosphorus (2.5-4.5) mg/dL Magnesium (1.6-2.3) mg/dL Total Bilirubin (0.2-1.3) mg/dL AST (14-36) U/L ALT (9-52) U/L Alkaline Phosphatase (38-126) U/L Total Protein (6.3-8.3) g/dL Albumin (3.5-5.0) g/dL Globulin (2.2-3.9) gm/dL Albumin/Globulin Ratio (1.0-2.1) TSH 3rd Generation (0.46-4.68) mIU/L Arterial Blood Potassium (3.6-5.2) mmol/L Laboratory Results - last 24 hr 04/28/17 04/28/17 04/28/17 12:33 13:56 16:28 WBC 4.8 RBC 3.71 L Hgb 9.6 L Hct 31.0 L MCV 83.7 MCH 25.8 L MCHC 30.9 L RDW 17.0 H Plt Count 147 MPV 8.6 Neut % (Auto) 71.0 Lymph % (Auto) 17.2 L [place] % (Auto) 10.3 H Eos % (Auto) 0.7 Baso % (Auto) 0.8 Neut # 3.4 Lymph # 0.8 L [place] # 0.5 Eos # 0.0 Baso # 0.0 Puncture Site Lra pCO2 89 H* pO2 236 H HCO3 30.7 H ABG pH 7.24 L ABG Total CO2 40.8 H ABG O2 Saturation 100.2 H ABG Base Excess 7.3 H ABG Hemoglobin ABG Carboxyhemoglobin POC ABG HHb (Measured) ABG Methemoglobin Zeus Test Pos ABG Potassium 5.6 H A-a O2 Difference 366.0 Respiratory Index 1.6 Hgb O2 Saturation Sodium 137.0 Chloride 105.0 Glucose 113 H Lactate 0.7 Vent Mode Bipap Mechanical Rate FiO2 100.0 Inspiratory BiPAP 12 Expiratory BiPAP 6 Crit Value Called To Dr capri newman Crit Value Called By Hernandez claudio pipe turner Crit Value Read Back Y Blood Gas Notified Time 1401 Potassium Carbon Dioxide Anion Gap BUN Creatinine Est GFR ( Amer) Est GFR (Non-Af Amer) POC Glucose (mg/dL) 125 H Random Glucose Calcium Phosphorus Magnesium Total Bilirubin AST ALT Alkaline Phosphatase Total Protein Albumin Globulin Albumin/Globulin Ratio TSH 3rd Generation Arterial Blood Potassium 5.6 H 04/28/17 04/28/17 04/28/17 16:28 16:30 18:31 WBC RBC Hgb Hct MCV MCH MCHC RDW Plt Count MPV Neut % (Auto) Lymph % (Auto) [place] % (Auto) Eos % (Auto) Baso % (Auto) Neut # Lymph # [place] # Eos # Baso # Puncture Site Rra Rra pCO2 95 H* 81 H* pO2 78 L 87 HCO3 29.9 H 30.0 H ABG pH 7.21 L 7.25 L ABG Total CO2 40.9 H 38.0 H ABG O2 Saturation 97.2 98.2 H ABG Base Excess 6.5 H 6.5 H ABG Hemoglobin 9.6 L ABG Carboxyhemoglobin 1.6 H POC ABG HHb (Measured) 1.8 ABG Methemoglobin 0.9 Zeus Test Na Na ABG Potassium 5.5 H A-a O2 Difference 231.0 240.0 Respiratory Index 3.0 2.8 Hgb O2 Saturation 95.8 Sodium 133 138.0 Chloride 96 L 103.0 Glucose 107 H Lactate 0.6 L Vent Mode Bipap Bipap Mechanical Rate 12 12 FiO2 60.0 60.0 Inspiratory BiPAP 12 18 Expiratory BiPAP 6 8 Crit Value Called To Dr. hoda drummond Crit Value Called By Pallavi rt Pallavi rt Crit Value Read Back Y Y Blood Gas Notified Time 1637 1834 Potassium 5.5 H Carbon Dioxide 35 H Anion Gap 8 L BUN 37 H Creatinine 0.9 Est GFR ( Amer) > 60 Est GFR (Non-Af Amer) > 60 POC Glucose (mg/dL) Random Glucose 103 Calcium 8.3 L Phosphorus 4.0 Magnesium 1.6 Total Bilirubin 0.6 AST 24 ALT 30 Alkaline Phosphatase 61 Total Protein 6.7 Albumin 3.4 L Globulin 3.3 Albumin/Globulin Ratio 1.0 TSH 3rd Generation 1.36 Arterial Blood Potassium 5.5 H 04/28/17 04/29/17 04/29/17 21:30 06:27 06:27 WBC 3.7 L RBC 3.56 L Hgb 9.2 L Hct 29.9 L MCV 84.0 MCH 25.9 L MCHC 30.9 L RDW 16.8 H Plt Count 154 MPV 8.9 Neut % (Auto) 80.9 H Lymph % (Auto) 15.3 L [place] % (Auto) 3.4 Eos % (Auto) 0.0 Baso % (Auto) 0.4 Neut # 3.0 Lymph # 0.6 L [place] # 0.1 Eos # 0.0 Baso # 0.0 Puncture Site Rra pCO2 85 H* pO2 89 HCO3 30.4 H ABG pH 7.24 L ABG Total CO2 39.0 H ABG O2 Saturation 98.0 ABG Base Excess 7.0 H ABG Hemoglobin 9.7 L ABG Carboxyhemoglobin 1.6 H POC ABG HHb (Measured) 1.9 ABG Methemoglobin 1.1 Zeus Test Na ABG Potassium A-a O2 Difference 233.0 Respiratory Index 2.6 Hgb O2 Saturation 95.5 Sodium 134 Chloride 96 L Glucose Lactate Vent Mode Bipap Mechanical Rate 12 FiO2 60.0 Inspiratory BiPAP 18 Expiratory BiPAP 8 Crit Value Called To Dr leal Crit Value Called By Pallavi benitez Crit Value Read Back Y Blood Gas Notified Time 2136 Potassium 5.4 H Carbon Dioxide 34 H Anion Gap 8 L BUN 41 H Creatinine 0.9 Est GFR ( Amer) > 60 Est GFR (Non-Af Amer) > 60 POC Glucose (mg/dL) Random Glucose 95 Calcium 8.2 L Phosphorus 4.3 Magnesium 1.6 Total Bilirubin 0.4 AST 20 ALT 27 Alkaline Phosphatase 55 Total Protein 5.7 L Albumin 2.8 L Globulin 2.9 Albumin/Globulin Ratio 1.0 TSH 3rd Generation Arterial Blood Potassium 04/29/17 06:36 WBC RBC Hgb Hct MCV MCH MCHC RDW Plt Count MPV Neut % (Auto) Lymph % (Auto) [place] % (Auto) Eos % (Auto) Baso % (Auto) Neut # Lymph # [place] # Eos # Baso # Puncture Site Rr pCO2 75 H* pO2 72 L HCO3 30.2 H ABG pH 7.28 L ABG Total CO2 37.5 H ABG O2 Saturation 97.1 ABG Base Excess 6.8 H ABG Hemoglobin 9.7 L ABG Carboxyhemoglobin 1.6 H POC ABG HHb (Measured) 2.8 ABG Methemoglobin 0.9 Zeus Test Pos ABG Potassium A-a O2 Difference 262.0 Respiratory Index 3.6 Hgb O2 Saturation 94.7 L Sodium Chloride Glucose Lactate Vent Mode Bipap Mechanical Rate FiO2 60.0 Inspiratory BiPAP 20 Expiratory BiPAP 10 Crit Value Called To Dr. 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 Crit Value Read Back Y Blood Gas Notified Time 640 Potassium Carbon Dioxide Anion Gap BUN Creatinine Est GFR ( Amer) Est GFR (Non-Af Amer) POC Glucose (mg/dL) Random Glucose Calcium Phosphorus Magnesium Total Bilirubin AST ALT Alkaline Phosphatase Total Protein Albumin Globulin Albumin/Globulin Ratio TSH 3rd Generation Arterial Blood Potassium Fingerstick Blood Sugar Results: 125 Critical Care Progress Note - Nutrition Nutrition: Nutrition Category Date Time Status Heart Healthy Diet [DIET] Diets 04/24/17 Dinner Active Assessment/Plan - Assessment and Plan (Free Text) Assessment: 71F with respiratory distress 2/2 fluid overload Plan: Cardio: ([place]) Echo shows normal LVF. Echo shows RV is dilated and hypokinetic. Elevated right- sided pressure. JEWELS ordered for tomorrow. Eliquis 5 PO BID Coreg 12.5 PO BID Digoxin 0.125 PO Daily Furosemide 100 IV Q20 Cozaar 25 PO Daily Aldactone 25 PO Daily Pulm: CXR (04/28) shows diffuse confluent airspace opacities throughout both lungs suggestive of prominent edema and or infiltrate, moderate bilateral pleural effusions, and cardiomegaly. Rpt CXR (04/29) suggestive of significant infiltrates suggestive of pulmonary edema vs. pneumonia; also suggestive of pulmonary effusion. Rpt CXR. Ordered chest PT. B/l LE Venous Duplex ordered. Duoneb 3 INH Q4 Acetylcysteine 4 INH Q4 Solu-Medrol 40 IV BID Cefepime 1 IV Q12 Bipap 20&10 ABG: pCO2 75, pO2 72, HCO3 30.2, pH 7.27 Continues to be acidotic but this is most likely secondary to chronic CO2 retention 2/2 LUCERO Endo: Metformin 500 PO ACBD Renal: BUN/ CR = 41/0.9 I/O: -795ml/24hrs Heme/Onc: H/H: 9.2/29.9 ID: WBC 3.7 Blood cultures ordered. Wound cultures ordered. Nystatin 1 topical BID Vitamin A 1 topical BID <Cristian Merritt S - Last Filed: 04/29/17 18:08> CCU Objective - Vital Signs / Intake & Output Vital Signs (Last 4 hours): Vital Signs Pulse Resp BP Pulse Ox 04/29/17 17:19 92/41 L 04/29/17 17:18 65 16 92/41 L 98 04/29/17 17:01 67 18 94/43 L 99 04/29/17 17:00 69 14 99 04/29/17 16:10 16 04/29/17 16:02 66 16 102/44 L 99 04/29/17 16:00 69 15 99 04/29/17 15:02 66 24 115/35 L 95 04/29/17 15:00 69 27 H 97 Intake and Output (Last 8hrs): Intake & Output 04/29/17 04/29/17 04/29/17 06:59 14:59 22:59 Intake Total 40 720 150 Output Total 520 1135 630 Balance -480 -415 -480 Weight 290 lb 6.4 oz 290 lb Intake: Intake, IV Amount 40 120 30 Right Distal Port Upper 40 70 30 arm Right Proximal Port PICC 50 Oral 600 120 Output: Urine 520 1135 630 Urethral (Cardoza) 520 1135 630 - Medications Active Medications: Active Medications Generic Name Dose Route Start Last Admin Trade Name Freq PRN Reason Stop Dose Admin Acetylcysteine 4 ml 04/29/17 12:00 04/29/17 11:39 Acetylcysteine 20% INH 4 ml RQ4 SONAL Administration Albuterol/Ipratropium 3 ml 04/29/17 12:00 04/29/17 11:39 Duoneb 3 Mg/0.5 Mg (3 Ml) Ud INH 3 ml RQ4 SONAL Administration Apixaban 5 mg 04/25/17 10:00 04/29/17 17:17 Eliquis PO 5 mg BID SONAL Administration Carvedilol 12.5 mg 04/24/17 18:30 04/29/17 17:19 Coreg PO Not Given BID SONAL Digoxin 0.125 mg 04/25/17 18:00 04/29/17 17:18 Lanoxin PO 0.125 mg DAILY@1800 SONAL Administration Vancomycin HCl 1 gm/ Sodium 200 mls @ 166.7 mls/hr 04/28/17 17:30 04/29/17 17 :15 Chloride IVPB 166.7 mls/hr Q24H SONAL Administration Cefepime HCl 1 gm/ Dextrose 50 mls @ 100 mls/hr 04/29/17 10:00 04/29/17 10:28 IVPB 100 mls/hr Q12H SONAL Administration Furosemide 100 mg/ Dextrose 100 mls @ 10 mls/hr 04/29/17 09:26 04/29/17 10:25 IV 10 mls/hr .Q10H SONAL Administration 10 MG/HR Losartan Potassium 25 mg 04/25/17 10:00 04/29/17 10:27 Cozaar PO 25 mg DAILY SONAL Administration Methylprednisolone 40 mg 04/28/17 18:00 04/29/17 17:16 Solu-Medrol IV 40 mg BID SONAL Administration Nystatin 1 applic 04/28/17 18:00 04/29/17 17:20 Nystop Topical Powder TOP 1 applic BID SONAL Administration Spironolactone 25 mg 04/25/17 10:00 04/29/17 10:26 Aldactone PO 25 mg DAILY SONAL Administration Vitamin A 1 ea 04/29/17 10:00 04/29/17 17:17 Vitamin A & D Oint Ud Foilpak TOP 1 ea BID SONAL Administration - Patient Studies Lab Studies: Lab Studies 04/29/17 04/29/17 04/29/17 Range/Units 06:36 06:27 06:27 WBC 3.7 L (4.8-10.8) K/uL RBC 3.56 L (3.80-5.20) Mil/uL Hgb 9.2 L (11.0-16.0) g/dL Hct 29.9 L (34.0-47.0) % MCV 84.0 (81.0-99.0) fL MCH 25.9 L (27.0-31.0) pg MCHC 30.9 L (33.0-37.0) g/dL RDW 16.8 H (11.5-14.5) % Plt Count 154 (130-400) K/uL MPV 8.9 (7.2-11.7) fL Neut % (Auto) 80.9 H (50.0-75.0) % Lymph % (Auto) 15.3 L (20.0-40.0) % [place] % (Auto) 3.4 (0.0-10.0) % Eos % (Auto) 0.0 (0.0-4.0) % Baso % (Auto) 0.4 (0.0-2.0) % Neut # 3.0 (1.8-7.0) K/uL Lymph # 0.6 L (1.0-4.3) K/uL [place] # 0.1 (0.0-0.8) K/uL Eos # 0.0 (0.0-0.7) K/uL Baso # 0.0 (0.0-0.2) K/uL Puncture Site Rr pCO2 75 H* (35-45) mm/Hg pO2 72 L (80-100) mm/Hg HCO3 30.2 H (21-28) mmol/L ABG pH 7.28 L (7.35-7.45) ABG Total CO2 37.5 H (22-28) mmol/L ABG O2 Saturation 97.1 (95-98) % ABG Base Excess 6.8 H (-2.0-3.0) mmol/L ABG Hemoglobin 9.7 L (11.7-17.4) g/dL ABG Carboxyhemoglobin 1.6 H (0.5-1.5) % POC ABG HHb (Measured) 2.8 (0.0-5.0) % ABG Methemoglobin 0.9 (0.0-3.0) % Zeus Test Pos A-a O2 Difference 262.0 mm/Hg Respiratory Index 3.6 Hgb O2 Saturation 94.7 L (95.0-98.0) % Vent Mode Bipap Mechanical Rate FiO2 60.0 % Inspiratory BiPAP 20 Expiratory BiPAP 10 Crit Value Called To Dr. 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 Crit Value Read Back Y Blood Gas Notified Time 640 Sodium 134 (132-148) mmol/L Potassium 5.4 H (3.6-5.2) mmol/L Chloride 96 L (98-107) mmol/L Carbon Dioxide 34 H (22-30) mmol/L Anion Gap 8 L (10-20) BUN 41 H (7-17) mg/dL Creatinine 0.9 (0.7-1.2) mg/dL Est GFR ( Amer) > 60 Est GFR (Non-Af Amer) > 60 Random Glucose 95 (65-105) mg/dL Calcium 8.2 L (8.6-10.4) mg/dl Phosphorus 4.3 (2.5-4.5) mg/dL Magnesium 1.6 (1.6-2.3) mg/dL Total Bilirubin 0.4 (0.2-1.3) mg/dL AST 20 (14-36) U/L ALT 27 (9-52) U/L Alkaline Phosphatase 55 (38-126) U/L Total Protein 5.7 L (6.3-8.3) g/dL Albumin 2.8 L (3.5-5.0) g/dL Globulin 2.9 (2.2-3.9) gm/dL Albumin/Globulin Ratio 1.0 (1.0-2.1) 04/28/17 04/28/17 Range/Units 21:30 18:31 WBC (4.8-10.8) K/uL RBC (3.80-5.20) Mil/uL Hgb (11.0-16.0) g/dL Hct (34.0-47.0) % MCV (81.0-99.0) fL MCH (27.0-31.0) pg MCHC (33.0-37.0) g/dL RDW (11.5-14.5) % Plt Count (130-400) K/uL MPV (7.2-11.7) fL Neut % (Auto) (50.0-75.0) % Lymph % (Auto) (20.0-40.0) % [place] % (Auto) (0.0-10.0) % Eos % (Auto) (0.0-4.0) % Baso % (Auto) (0.0-2.0) % Neut # (1.8-7.0) K/uL Lymph # (1.0-4.3) K/uL [place] # (0.0-0.8) K/uL Eos # (0.0-0.7) K/uL Baso # (0.0-0.2) K/uL Puncture Site Rra Rra pCO2 85 H* 81 H* (35-45) mm/Hg pO2 89 87 (80-100) mm/Hg HCO3 30.4 H 30.0 H (21-28) mmol/L ABG pH 7.24 L 7.25 L (7.35-7.45) ABG Total CO2 39.0 H 38.0 H (22-28) mmol/L ABG O2 Saturation 98.0 98.2 H (95-98) % ABG Base Excess 7.0 H 6.5 H (-2.0-3.0) mmol/L ABG Hemoglobin 9.7 L 9.6 L (11.7-17.4) g/dL ABG Carboxyhemoglobin 1.6 H 1.6 H (0.5-1.5) % POC ABG HHb (Measured) 1.9 1.8 (0.0-5.0) % ABG Methemoglobin 1.1 0.9 (0.0-3.0) % Zeus Test Na Na A-a O2 Difference 233.0 240.0 mm/Hg Respiratory Index 2.6 2.8 Hgb O2 Saturation 95.5 95.8 (95.0-98.0) % Vent Mode Bipap Bipap Mechanical Rate 12 12 FiO2 60.0 60.0 % Inspiratory BiPAP 18 18 Expiratory BiPAP 8 8 Crit Value Called To Dr mel drummond Crit Value Called By Pallavi benitez Crit Value Read Back Y Y Blood Gas Notified Time 2135 1833 Sodium (132-148) mmol/L Potassium (3.6-5.2) mmol/L Chloride (98-107) mmol/L Carbon Dioxide (22-30) mmol/L Anion Gap (10-20) BUN (7-17) mg/dL Creatinine (0.7-1.2) mg/dL Est GFR ( Amer) Est GFR (Non-Af Amer) Random Glucose (65-105) mg/dL Calcium (8.6-10.4) mg/dl Phosphorus (2.5-4.5) mg/dL Magnesium (1.6-2.3) mg/dL Total Bilirubin (0.2-1.3) mg/dL AST (14-36) U/L ALT (9-52) U/L Alkaline Phosphatase (38-126) U/L Total Protein (6.3-8.3) g/dL Albumin (3.5-5.0) g/dL Globulin (2.2-3.9) gm/dL Albumin/Globulin Ratio (1.0-2.1) Laboratory Results - last 24 hr 04/28/17 04/28/17 04/29/17 18:31 21:30 06:27 WBC 3.7 L RBC 3.56 L Hgb 9.2 L Hct 29.9 L MCV 84.0 MCH 25.9 L MCHC 30.9 L RDW 16.8 H Plt Count 154 MPV 8.9 Neut % (Auto) 80.9 H Lymph % (Auto) 15.3 L [place] % (Auto) 3.4 Eos % (Auto) 0.0 Baso % (Auto) 0.4 Neut # 3.0 Lymph # 0.6 L [place] # 0.1 Eos # 0.0 Baso # 0.0 Puncture Site Rra Rra pCO2 81 H* 85 H* pO2 87 89 HCO3 30.0 H 30.4 H ABG pH 7.25 L 7.24 L ABG Total CO2 38.0 H 39.0 H ABG O2 Saturation 98.2 H 98.0 ABG Base Excess 6.5 H 7.0 H ABG Hemoglobin 9.6 L 9.7 L ABG Carboxyhemoglobin 1.6 H 1.6 H POC ABG HHb (Measured) 1.8 1.9 ABG Methemoglobin 0.9 1.1 Zeus Test Na Na A-a O2 Difference 240.0 233.0 Respiratory Index 2.8 2.6 Hgb O2 Saturation 95.8 95.5 Vent Mode Bipap Bipap Mechanical Rate 12 12 FiO2 60.0 60.0 Inspiratory BiPAP 18 18 Expiratory BiPAP 8 8 Crit Value Called To Dr hoda leal Crit Value Called By Pallavi Olivo rt Crit Value Read Back Y Y Blood Gas Notified Time [id number] Sodium Potassium Chloride Carbon Dioxide Anion Gap BUN Creatinine Est GFR ( Amer) Est GFR (Non-Af Amer) Random Glucose Calcium Phosphorus Magnesium Total Bilirubin AST ALT Alkaline Phosphatase Total Protein Albumin Globulin Albumin/Globulin Ratio 04/29/17 04/29/17 06:27 06:36 WBC RBC Hgb Hct MCV MCH MCHC RDW Plt Count MPV Neut % (Auto) Lymph % (Auto) [place] % (Auto) Eos % (Auto) Baso % (Auto) Neut # Lymph # [place] # Eos # Baso # Puncture Site Rr pCO2 75 H* pO2 72 L HCO3 30.2 H ABG pH 7.28 L ABG Total CO2 37.5 H ABG O2 Saturation 97.1 ABG Base Excess 6.8 H ABG Hemoglobin 9.7 L ABG Carboxyhemoglobin 1.6 H POC ABG HHb (Measured) 2.8 ABG Methemoglobin 0.9 Zeus Test Pos A-a O2 Difference 262.0 Respiratory Index 3.6 Hgb O2 Saturation 94.7 L Vent Mode Bipap Mechanical Rate FiO2 60.0 Inspiratory BiPAP 20 Expiratory BiPAP 10 Crit Value Called To Dr. 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 Crit Value Read Back Y Blood Gas Notified Time 640 Sodium 134 Potassium 5.4 H Chloride 96 L Carbon Dioxide 34 H Anion Gap 8 L BUN 41 H Creatinine 0.9 Est GFR ( Amer) > 60 Est GFR (Non-Af Amer) > 60 Random Glucose 95 Calcium 8.2 L Phosphorus 4.3 Magnesium 1.6 Total Bilirubin 0.4 AST 20 ALT 27 Alkaline Phosphatase 55 Total Protein 5.7 L Albumin 2.8 L Globulin 2.9 Albumin/Globulin Ratio 1.0 Critical Care Progress Note - Nutrition Nutrition: Nutrition Category Date Time Status Heart Healthy Diet [DIET] Diets 04/24/17 Dinner Active Attending/Attestation - Attestation I have personally seen and examined this patient.: Yes I have fully participated in the care of the patient.: Yes I have reviewed all pertinent clinical information: Yes Notes (Text): 04/29/17 18:07 patient seen and examined in the intensive care unit. Case discussed with house staff in the morning. Breathing better today Out of bed to chair Chest x-ray consistent with bilateralairspace opacities Continue nebulizer treatment Continue IV steroids Continue antibiotics BiPAP at night chest PT with Mucomyst
--- NOTE | 2017-04-29 11:33 | RAD ---
HISTORY: PNA COMPARISON: 04/28/2017 at 1628 hours FINDINGS: LUNGS: The bilateral coalescing airspace opacities have progressed in each lung and -left hemithorax is nearly completely opacified. No mediastinal shift is noted. PLEURA: Interval increase left pleural effusion probable small right pleural effusion suggested. No pneumothorax apparent. CARDIOVASCULAR: Heart silhouette obscured by a contiguous left hemithoracic opacification OSSEOUS STRUCTURES: Thoracic spondylosis. Bilateral shoulder arthrosis. VISUALIZED UPPER ABDOMEN: Normal. OTHER FINDINGS: None. IMPRESSION: Bilateral increasing infiltrates and or increasing coalescent pulmonary edema. Interval increase left pleural effusion inferred
[2017-04-29] MEDS: Acetylcysteine 20% Inhal Soln (4ml) INH SCH ×2 (11:39→20:12)
--- NOTE | 2017-04-29 11:39 | CP.PCM.PN ---
Subjective - Date & Time of Evaluation Date of Evaluation: 04/29/17 Time of Evaluation: 11:30 - Subjective Subjective: PAtint more comfortable today. Less tachypneic/SOB. Off C_PAO. Diuresing very well with IV lasix at 10 mgm q hourly. Output of 100-125/hourly.. Objective - Vital Signs/Intake and Output Vital Signs (last 24 hours): Temp Pulse Resp BP Pulse Ox 98.5 F 82 13 104/49 L 100 04/29/17 08:48 04/29/17 08:51 04/29/17 10:40 04/29/17 10:26 04/29/17 08:48 Intake and Output: 04/29/17 04/29/17 06:59 18:59 Intake Total 127 10 Output Total 860 265 Balance -733 -255 - Medications Medications: Current Medications Acetylcysteine (Acetylcysteine 20%) 4 ml INH RQ4 [facility] Albuterol/Ipratropium (Duoneb 3 Mg/0.5 Mg (3 Ml) Ud) 3 ml INH RQ4 [facility] Apixaban (Eliquis) 5 mg PO BID [facility] Last Admin: 04/29/17 10:26 Dose: 5 mg Carvedilol (Coreg) 12.5 mg PO BID [facility] Last Admin: 04/29/17 10:26 Dose: 12.5 mg Digoxin (Lanoxin) 0.125 mg PO DAILY@1800 [facility] Last Admin: 04/28/17 18:16 Dose: 0.125 mg Vancomycin HCl 1 gm/ Sodium (Chloride) 200 mls @ 166.7 mls/hr IVPB Q24H [facility] Last Admin: 04/28/17 17:49 Dose: 166.7 mls/hr Cefepime HCl 1 gm/ Dextrose 50 mls @ 100 mls/hr IVPB Q12H [facility] Last Admin: 04/29/17 10:28 Dose: 100 mls/hr Furosemide 100 mg/ Dextrose 100 mls @ 10 mls/hr IV .Q10H [facility] PRN Reason: 10 MG/HR Last Admin: 04/29/17 10:25 Dose: 10 mls/hr Losartan Potassium (Cozaar) 25 mg PO DAILY [facility] Last Admin: 04/29/17 10:27 Dose: 25 mg Methylprednisolone (Solu-Medrol) 40 mg IV BID [facility] Last Admin: 04/29/17 10:27 Dose: 40 mg Nystatin (Nystop Topical Powder) 1 applic TOP BID [facility] Last Admin: 04/29/17 10:28 Dose: 1 applic Spironolactone (Aldactone) 25 mg PO DAILY [facility] Last Admin: 04/29/17 10:26 Dose: 25 mg Vitamin A (Vitamin A & D Oint Ud Foilpak) 1 ea TOP BID [facility] Last Admin: 04/29/17 10:27 Dose: 1 ea - Labs Labs: 04/29/17 06:27 04/29/17 06:27 PT 13.7 SECONDS (9.7-12.2) H 04/24/17 14:34 INR 1.2 04/24/17 14:34 APTT 29 SECONDS (21-34) 04/24/17 14:34 - Constitutional Appears: No Acute Distress - Head Exam Head Exam: ATRAUMATIC, NORMAL INSPECTION, NORMOCEPHALIC - Eye Exam Pupil Exam: PERRL - ENT Exam ENT Exam: Normal External Ear Exam - Neck Exam Neck Exam: Full ROM - Respiratory Exam Respiratory Exam: Decreased Breath Sounds, Rales - Cardiovascular Exam Cardiovascular Exam: Irregular Rhythm, +S1, +S2, +S4 - GI/Abdominal Exam GI & Abdominal Exam: Soft - Rectal Exam Rectal Exam: Deferred - Extremities Exam Additional comments: 2+ pedal edema. - Neurological Exam Neurological Exam: Alert, Awake, Oriented x3 - Psychiatric Exam Psychiatric exam: Normal Affect, Normal Mood - Skin Skin Exam: Dry, Intact, Normal Color, Warm Assessment and Plan (1) NIDDY (non-insulin dependent diabetes mellitus in young) Status: Chronic (2) Atrial fibrillation Status: Acute (3) CHF (congestive heart failure) Status: Acute (4) HTN (hypertension) Status: Chronic (5) Type 2 diabetes mellitus Status: Chronic (6) Right heart failure due to pulmonary hypertension Status: Acute (7) Acute respiratory failure Status: Acute - Assessment and Plan (Free Text) Plan: Plan: Continue IV Lasix. Continue respiratory support. IV Antibiotics. Anticoagulation with ELIQUIS , aldactone , Digoxin
--- NOTE | 2017-04-29 16:53 | RAD ---
HISTORY: sob COMPARISON: 04/29/2017 FINDINGS: LUNGS: The prior feet opacification left jennifer thorax shows interval improvement with aeration of the mid to upper lung zone. Front Desk Auxiliary opacification duration left hemidiaphragm noted. PLEURA: Left pleural effusion small right pleural effusion size a left pleural effusion is inferred as less. No pneumothorax CARDIOVASCULAR: Cardiomegaly. Central pulmonary vascular congestion possible OSSEOUS STRUCTURES: Thoracic spondylosis. Bilateral shoulder arthrosis. VISUALIZED UPPER ABDOMEN: Normal. OTHER FINDINGS: Right central line placement cavoatrial junction. No pneumothorax appreciated -similar-appearing IMPRESSION: Interval improved aeration of the left upper lung. Persistent bilateral space opacities consistent with infiltrates and/or coalescent pulmonary edema. Bilateral pleural effusions ; the left pleural effusion although still extensive appears less than before Right central line placement cavoatrial junction
[2017-04-29] MEDS: Vancomycin 1 GM in Sodium Chloride 0.9% 200 ML IVPB SCH (17:15)
[2017-04-29] MEDS: Digoxin 125 mcg (0.125 mg) Tab PO SCH (17:18)
[2017-04-29 22:30] LABS: BLOOD UREA NITROGEN 42 mg/dL (7-17); CALCIUM 8.3 mg/dl (8.6-10.4); GFR AFRICAN-AMERICAN > 60; GFR NON-AFRICAN AMERICAN 55; MAGNESIUM 1.7 mg/dL (1.6-2.3)
[2017-04-30] MEDS: Albuterol-Ipratrop 3 mg / 0.5 (3 ml) UD INH SCH ×5 (00:48→20:07)
[2017-04-30] MEDS: Acetylcysteine 20% Inhal Soln (4ml) INH SCH ×4 (00:51→20:08)
[2017-04-30 05:55] LABS: BASO % 0.2 % (0.0-2.0); HEMOGLOBIN 9.6 g/dL (11.0-16.0); LYMPH # 0.5 K/uL (1.0-4.3); LYMPH % 14.2 % (20.0-40.0); MEAN CELL VOLUME 82.6 fL (81.0-99.0); MEAN CORPUSCULAR HEMOGLOBIN 26.5 pg (27.0-31.0); MEAN PLATELET VOLUME 9.1 fL (7.2-11.7); MONO # 0.2 K/uL (0.0-0.8); MONO % 5.4 % (0.0-10.0); NEUT # 3.1 K/uL (1.8-7.0); NEUT % 80.2 % (50.0-75.0); NRBC % 0.2 % (0.0-2.0); RBC 3.61 Mil/uL (3.80-5.20); RED CELL DISTRIBUTION WIDTH 16.3 % (11.5-14.5); WHITE BLOOD COUNT 3.8 K/uL (4.8-10.8)
[2017-04-30 06:30] LABS: ALBUMIN 3.1 g/dL (3.5-5.0); ALT/SGPT 26 U/L (9-52); AST/SGOT 20 U/L (14-36); BLOOD UREA NITROGEN 43 mg/dL (7-17); CALCIUM 8.5 mg/dl (8.6-10.4); GFR AFRICAN-AMERICAN > 60; GFR NON-AFRICAN AMERICAN > 60; MAGNESIUM 1.7 mg/dL (1.6-2.3)
--- NOTE | 2017-04-30 08:26 | CP.PCM.PN ---
Subjective - Date & Time of Evaluation Date of Evaluation: 04/29/17 Time of Evaluation: 09:30 - Subjective Subjective: patient has less dyspnea Objective - Vital Signs/Intake and Output Vital Signs (last 24 hours): Temp Pulse Resp BP Pulse Ox 98.5 F 83 22 119/47 L 97 04/30/17 04:35 04/30/17 07:02 04/30/17 08:06 04/30/17 07:02 04/30/17 07:02 Intake and Output: 04/30/17 04/30/17 06:59 18:59 Intake Total 170 Output Total 1795 Balance -1625 - Medications Medications: Current Medications Acetylcysteine (Acetylcysteine 20%) 4 ml INH RQ4 [facility] Last Admin: 04/30/17 08:08 Dose: 4 ml Albuterol/Ipratropium (Duoneb 3 Mg/0.5 Mg (3 Ml) Ud) 3 ml INH RQ4 [facility] Last Admin: 04/30/17 08:08 Dose: 3 ml Apixaban (Eliquis) 5 mg PO BID [facility] Last Admin: 04/29/17 17:17 Dose: 5 mg Carvedilol (Coreg) 12.5 mg PO BID [facility] Last Admin: 04/29/17 17:19 Dose: Not Given Digoxin (Lanoxin) 0.125 mg PO DAILY@1800 [facility] Last Admin: 04/29/17 17:18 Dose: 0.125 mg Vancomycin HCl 1 gm/ Sodium (Chloride) 200 mls @ 166.7 mls/hr IVPB Q24H [facility] Last Admin: 04/29/17 17:15 Dose: 166.7 mls/hr Cefepime HCl 1 gm/ Dextrose 50 mls @ 100 mls/hr IVPB Q12H [facility] Last Admin: 04/29/17 22:18 Dose: 100 mls/hr Furosemide 100 mg/ Dextrose 100 mls @ 10 mls/hr IV .Q10H [facility] PRN Reason: 10 MG/HR Last Admin: 04/29/17 19:31 Dose: 10 mls/hr Losartan Potassium (Cozaar) 25 mg PO DAILY [facility] Last Admin: 04/29/17 10:27 Dose: 25 mg Methylprednisolone (Solu-Medrol) 40 mg IV BID [facility] Last Admin: 04/29/17 17:16 Dose: 40 mg Nystatin (Nystop Topical Powder) 1 applic TOP BID [facility] Last Admin: 04/29/17 17:20 Dose: 1 applic Spironolactone (Aldactone) 25 mg PO DAILY [facility] Last Admin: 04/29/17 10:26 Dose: 25 mg Vitamin A (Vitamin A & D Oint Ud Foilpak) 1 ea TOP BID [facility] Last Admin: 04/29/17 17:17 Dose: 1 ea - Labs Labs: 04/30/17 05:48 04/30/17 05:48 PT 13.7 SECONDS (9.7-12.2) H 04/24/17 14:34 INR 1.2 04/24/17 14:34 APTT 29 SECONDS (21-34) 04/24/17 14:34 - Constitutional Appears: Chronically Ill - Head Exam Head Exam: NORMAL INSPECTION - Eye Exam Eye Exam: Normal appearance - ENT Exam ENT Exam: Mucous Membranes Moist - Neck Exam Neck Exam: Full ROM - Respiratory Exam Respiratory Exam: Decreased Breath Sounds - Cardiovascular Exam Cardiovascular Exam: Irregular Rhythm - GI/Abdominal Exam GI & Abdominal Exam: Normal Bowel Sounds - Rectal Exam Rectal Exam: Deferred - Extremities Exam Extremities Exam: Pedal Edema - Back Exam Back Exam: NORMAL INSPECTION - Neurological Exam Neurological Exam: Alert - Psychiatric Exam Psychiatric exam: Normal Affect - Skin Skin Exam: Normal Color Assessment and Plan (1) Atrial fibrillation Assessment & Plan: rate controlled. anticoagulation Status: Acute (2) Right heart failure due to pulmonary hypertension Assessment & Plan: continue diuresis with lasix Status: Acute
--- NOTE | 2017-04-30 08:28 | CP.PCM.PN ---
Subjective - Date & Time of Evaluation Date of Evaluation: 04/30/17 Time of Evaluation: 08:10 - Subjective Subjective: patient has no chest pain today Objective - Vital Signs/Intake and Output Vital Signs (last 24 hours): Temp Pulse Resp BP Pulse Ox 98.5 F 83 22 119/47 L 97 04/30/17 04:35 04/30/17 07:02 04/30/17 08:06 04/30/17 07:02 04/30/17 07:02 Intake and Output: 04/30/17 04/30/17 06:59 18:59 Intake Total 170 Output Total 1795 Balance -1625 - Medications Medications: Current Medications Acetylcysteine (Acetylcysteine 20%) 4 ml INH RQ4 [facility] Last Admin: 04/30/17 08:08 Dose: 4 ml Albuterol/Ipratropium (Duoneb 3 Mg/0.5 Mg (3 Ml) Ud) 3 ml INH RQ4 [facility] Last Admin: 04/30/17 08:08 Dose: 3 ml Apixaban (Eliquis) 5 mg PO BID [facility] Last Admin: 04/29/17 17:17 Dose: 5 mg Carvedilol (Coreg) 12.5 mg PO BID [facility] Last Admin: 04/29/17 17:19 Dose: Not Given Digoxin (Lanoxin) 0.125 mg PO DAILY@1800 [facility] Last Admin: 04/29/17 17:18 Dose: 0.125 mg Vancomycin HCl 1 gm/ Sodium (Chloride) 200 mls @ 166.7 mls/hr IVPB Q24H [facility] Last Admin: 04/29/17 17:15 Dose: 166.7 mls/hr Cefepime HCl 1 gm/ Dextrose 50 mls @ 100 mls/hr IVPB Q12H [facility] Last Admin: 04/29/17 22:18 Dose: 100 mls/hr Furosemide 100 mg/ Dextrose 100 mls @ 10 mls/hr IV .Q10H [facility] PRN Reason: 10 MG/HR Last Admin: 04/29/17 19:31 Dose: 10 mls/hr Losartan Potassium (Cozaar) 25 mg PO DAILY [facility] Last Admin: 04/29/17 10:27 Dose: 25 mg Methylprednisolone (Solu-Medrol) 40 mg IV BID [facility] Last Admin: 04/29/17 17:16 Dose: 40 mg Nystatin (Nystop Topical Powder) 1 applic TOP BID [facility] Last Admin: 04/29/17 17:20 Dose: 1 applic Spironolactone (Aldactone) 25 mg PO DAILY [facility] Last Admin: 04/29/17 10:26 Dose: 25 mg Vitamin A (Vitamin A & D Oint Ud Foilpak) 1 ea TOP BID [facility] Last Admin: 04/29/17 17:17 Dose: 1 ea - Labs Labs: 04/30/17 05:48 04/30/17 05:48 PT 13.7 SECONDS (9.7-12.2) H 04/24/17 14:34 INR 1.2 04/24/17 14:34 APTT 29 SECONDS (21-34) 04/24/17 14:34 - Constitutional Appears: Non-toxic - Head Exam Head Exam: NORMAL INSPECTION - Eye Exam Eye Exam: Normal appearance - ENT Exam ENT Exam: Mucous Membranes Moist - Neck Exam Neck Exam: Full ROM - Respiratory Exam Respiratory Exam: Decreased Breath Sounds - Cardiovascular Exam Cardiovascular Exam: Irregular Rhythm - GI/Abdominal Exam GI & Abdominal Exam: Normal Bowel Sounds - Rectal Exam Rectal Exam: Deferred - Extremities Exam Extremities Exam: Pedal Edema - Back Exam Back Exam: NORMAL INSPECTION - Neurological Exam Neurological Exam: Alert - Psychiatric Exam Psychiatric exam: Normal Affect - Skin Skin Exam: Normal Color Assessment and Plan (1) Atrial fibrillation Assessment & Plan: rate controlled Status: Acute (2) Right heart failure due to pulmonary hypertension Assessment & Plan: doing well on diuretic therapy Status: Acute
[2017-04-30] MEDS: Furosemide 100 MG in Dextrose 5% In Water 90 ML IV SCH (09:02)
[2017-04-30] MEDS: MethylPREDNISolone 40 mg Vial IV SCH ×2 (09:28→18:21)
[2017-04-30] MEDS: Vitamins A & D Oint UD Foilpak TOP SCH ×2 (09:29→18:22)
--- NOTE | 2017-04-30 09:47 | RAD ---
HISTORY: sob COMPARISON: Chest radiograph dated 04/29/2017. FINDINGS: LUNGS: Pulmonary vascular congestion. PLEURA: Small bilateral pleural effusions, unchanged. No pneumothorax apparent. CARDIOVASCULAR: Cardiomediastinal silhouette stably enlarged. OSSEOUS STRUCTURES: No significant abnormalities. VISUALIZED UPPER ABDOMEN: Normal. OTHER FINDINGS: Right upper extremity PICC, unchanged. IMPRESSION: Stable small bilateral pleural effusions. No significant interval change.
[2017-04-30] MEDS: Furosemide 100 MG in Sodium Chloride 0.9% 90 ML IV SCH (10:00)
--- NOTE | 2017-04-30 10:05 | VASCLAB ---
PROCEDURE: Lower Extremity Venous Duplex Exam. HISTORY: right pulmonary hypertension and massive pedal ed PRIORS: None. TECHNIQUE: Bilateral common femoral, femoral, popliteal and posterior tibial, peroneal and great saphenous veins were evaluated. Flow was assessed with color Doppler, compressibility, assessment of phasic flow and augmentation response. Report prepared by DON Denise, RVT FINDINGS: RIGHT: 1. Common Femoral Vein: 1.1. Compressibility - Fully compressible: Thrombus - None : Flow - Phasic: Augmentation -Normal: Reflux - None. 2. Femoral Vein: 2.1. Compressibility - Fully compressible: Thrombus - None : Flow - Phasic: Augmentation -Normal: Reflux - None. 3. Popliteal Vein: 3.1. Compressibility - Fully compressible: Thrombus - None : Flow - Phasic: Augmentation -Normal: Reflux - None. 4. Posterior Tibial Vein: 4.1. Compressibility - : Thrombus - : Flow - : Augmentation -: Reflux - . 5. Peroneal Vein: 5.1. Compressibility - : Thrombus - : Flow - : Augmentation -: Reflux - . 6. Great Saphenous Vein: 6.1. Compressibility - Fully compressible: Thrombus - None: Flow - Phasic: Augmentation - Normal: Reflux - None. LEFT: 1. Common Femoral Vein: 1.1. Compressibility - Fully compressible: Thrombus - None: Flow - Phasic: Augmentation -Normal: Reflux - None. 2. Femoral Vein: 2.1. Compressibility - Fully compressible: Thrombus - None: Flow - Phasic: Augmentation -Normal: Reflux - None. 3. Popliteal Vein: 3.1. Compressibility - Fully compressible: Thrombus - None : Flow - Phasic: Augmentation -Normal: Reflux - None. 4. Posterior Tibial Vein: 4.1. Compressibility - Fully compressible: Thrombus - None: Flow - Phasic: Augmentation -Normal: Reflux - None. 5. Peroneal Vein: 5.1. Compressibility - : Thrombus - : Flow - : Augmentation -: Reflux - . 6. Great Saphenous Vein: 6.1. Compressibility - Fully compressible: Thrombus - None: Flow - Phasic: Augmentation - Normal: Reflux - None. OTHER FINDINGS: Right: Due to swelling in the calf, the right peroneal and posterior tibial vein are not visualized. Popliteal fossa 3.9 x 2.2 centimeter complex fluid collection. Left: Due to swelling in the calf, the left peroneal vein was not visualized. IMPRESSION: Right: No evidence of deep or superficial vein thrombosis of the right lower extremity. Normal valve function noted of the right side. Right Dumont's cyst. Left: No evidence of deep or superficial vein thrombosis of the left lower extremity. Normal valve function noted of the left side.
--- NOTE | 2017-04-30 11:12 | CP.CCUPN ---
<Aakash Ruff - Last Filed: 04/30/17 15:22> CCU Subjective - Physician Review Subjective (Free Text): 04/29/17 12:28 patient seen and examined at bedside patient looks much more comfortable. OOB to chair on high flow tolerated diet this AM explained that would benefit from sleep study will repeat CXR given high dose lasix Family at bedside 04/30/17 10:59 Patient seen and examined at bedisde. looks much more stable breathing much better decreased lasix drip to 5 CCU Objective - Vital Signs / Intake & Output Vital Signs (Last 4 hours): Vital Signs Pulse Resp BP Pulse Ox 04/30/17 10:00 110/48 L 04/30/17 09:27 110/48 L 04/30/17 09:04 83 16 110/48 L 04/30/17 09:02 110/48 L 04/30/17 08:06 22 04/30/17 08:02 80 20 117/55 L 97 04/30/17 07:02 83 22 119/47 L 97 04/30/17 07:00 74 13 99 Intake and Output (Last 8hrs): Intake & Output 04/29/17 04/30/17 04/30/17 22:59 06:59 14:59 Intake Total 570 80 Output Total 1355 1195 Balance -785 -1115 Weight 285 lb 11.505 oz Intake: Intake, IV Amount 330 80 Right Distal Port Upper 80 80 arm Right Proximal Port PICC 250 Oral 240 0 Output: Urine 1355 1195 Urethral (Cardoza) 1355 1195 Stool 0 - Physical Exam Head: Positive for: Atraumatic, Normocephalic Pupils: Positive for: PERRL Extroacular Muscles: Positive for: EOMI Conjunctiva: Positive for: Normal Mouth: Positive for: Moist Mucous Membranes Neck: Positive for: Normal Range of Motion Respiratory/Chest: Positive for: Decreased Breath Sounds Cardiovascular: Positive for: Regular Rate and Rhythm, Normal S1, S2 Abdomen: Positive for: Normal Bowel Sounds. Negative for: Tenderness, Distention, Peritoneal Signs Skin: Positive for: Warm, Dry. Negative for: Rashes, Normal Color - Medications Active Medications: Active Medications Generic Name Dose Route Start Last Admin Trade Name Freq PRN Reason Stop Dose Admin Acetylcysteine 4 ml 04/29/17 12:00 01/24/18 08:08 Acetylcysteine 20% INH 4 ml RQ4 SONAL Administration Albuterol/Ipratropium 3 ml 04/29/17 12:00 04/30/17 08:08 Duoneb 3 Mg/0.5 Mg (3 Ml) Ud INH 3 ml RQ4 SONAL Administration Apixaban 5 mg 04/25/17 10:00 04/30/17 09:28 Eliquis PO 5 mg BID SONAL Administration Carvedilol 12.5 mg 04/24/17 18:30 04/30/17 09:27 Coreg PO 12.5 mg BID SONAL Administration Digoxin 0.125 mg 04/25/17 18:00 04/29/17 17:18 Lanoxin PO 0.125 mg DAILY@1800 SONAL Administration Vancomycin HCl 1 gm/ Sodium 200 mls @ 166.7 mls/hr 04/28/17 17:30 04/29/17 17 :15 Chloride IVPB 166.7 mls/hr Q24H SONAL Administration Cefepime HCl 1 gm/ Dextrose 50 mls @ 100 mls/hr 04/29/17 10:00 04/30/17 09:28 IVPB 100 mls/hr Q12H SONAL Administration Furosemide 100 mg/ Sodium 100 mls @ 5 mls/hr 04/30/17 09:15 04/30/17 10:00 Chloride IV 5 mls/hr .Q20H SONAL Administration 5 MG/HR Losartan Potassium 25 mg 04/25/17 10:00 04/30/17 09:28 Cozaar PO 25 mg DAILY SONAL Administration Methylprednisolone 40 mg 04/28/17 18:00 04/30/17 09:28 Solu-Medrol IV 40 mg BID SONAL Administration Nystatin 1 applic 04/28/17 18:00 04/30/17 09:29 Nystop Topical Powder TOP 1 applic BID SONAL Administration Spironolactone 25 mg 04/25/17 10:00 04/30/17 09:27 Aldactone PO 25 mg DAILY SONAL Administration Vitamin A 1 ea 04/29/17 10:00 04/30/17 09:29 Vitamin A & D Oint Ud Foilpak TOP 1 ea BID SONAL Administration - Patient Studies Lab Studies: Microbiology Studies 04/28/17 19:08 MRSA Culture (Admit) - Final Naris MRSA NOT DETECTED 04/28/17 16:45 Blood Culture - Preliminary Blood NO GROWTH AFTER 24 HOURS 04/28/17 16:30 Blood Culture - Preliminary Blood NO GROWTH AFTER 24 HOURS Lab Studies 04/30/17 04/30/17 04/29/17 Range/Units 05:48 05:48 22:13 WBC 3.8 L (4.8-10.8) K/uL RBC 3.61 L (3.80-5.20) Mil/uL Hgb 9.6 L (11.0-16.0) g/dL Hct 29.9 L (34.0-47.0) % MCV 82.6 (81.0-99.0) fL MCH 26.5 L (27.0-31.0) pg MCHC 32.0 L (33.0-37.0) g/dL RDW 16.3 H (11.5-14.5) % Plt Count 154 (130-400) K/uL MPV 9.1 (7.2-11.7) fL Neut % (Auto) 80.2 H (50.0-75.0) % Lymph % (Auto) 14.2 L (20.0-40.0) % Charles % (Auto) 5.4 (0.0-10.0) % Eos % (Auto) 0.0 (0.0-4.0) % Baso % (Auto) 0.2 (0.0-2.0) % Neut # 3.1 (1.8-7.0) K/uL Lymph # 0.5 L (1.0-4.3) K/uL Charles # 0.2 (0.0-0.8) K/uL Eos # 0.0 (0.0-0.7) K/uL Baso # 0.0 (0.0-0.2) K/uL Sodium 134 132 (132-148) mmol/L Potassium 5.2 5.4 H (3.6-5.2) mmol/L Chloride 92 L 92 L (98-107) mmol/L Carbon Dioxide 39 H 37 H (22-30) mmol/L Anion Gap 8 L 8 L (10-20) BUN 43 H 42 H (7-17) mg/dL Creatinine 0.9 1.0 (0.7-1.2) mg/dL Est GFR ( Amer) > 60 > 60 Est GFR (Non-Af Amer) > 60 55 Random Glucose 154 H 197 H (65-105) mg/dL Calcium 8.5 L 8.3 L (8.6-10.4) mg/dl Phosphorus 3.7 3.7 (2.5-4.5) mg/dL Magnesium 1.7 1.7 (1.6-2.3) mg/dL Total Bilirubin 0.4 (0.2-1.3) mg/dL AST 20 (14-36) U/L ALT 26 (9-52) U/L Alkaline Phosphatase 54 (38-126) U/L Total Protein 6.2 L (6.3-8.3) g/dL Albumin 3.1 L (3.5-5.0) g/dL Globulin 3.1 (2.2-3.9) gm/dL Albumin/Globulin Ratio 1.0 (1.0-2.1) Laboratory Results - last 24 hr 04/29/17 04/30/17 04/30/17 22:13 05:48 05:48 WBC 3.8 L RBC 3.61 L Hgb 9.6 L Hct 29.9 L MCV 82.6 MCH 26.5 L MCHC 32.0 L RDW 16.3 H Plt Count 154 MPV 9.1 Neut % (Auto) 80.2 H Lymph % (Auto) 14.2 L Charles % (Auto) 5.4 Eos % (Auto) 0.0 Baso % (Auto) 0.2 Neut # 3.1 Lymph # 0.5 L Charles # 0.2 Eos # 0.0 Baso # 0.0 Sodium 132 134 Potassium 5.4 H 5.2 Chloride 92 L 92 L Carbon Dioxide 37 H 39 H Anion Gap 8 L 8 L BUN 42 H 43 H Creatinine 1.0 0.9 Est GFR ( Amer) > 60 > 60 Est GFR (Non-Af Amer) 55 > 60 Random Glucose 197 H 154 H Calcium 8.3 L 8.5 L Phosphorus 3.7 3.7 Magnesium 1.7 1.7 Total Bilirubin 0.4 AST 20 ALT 26 Alkaline Phosphatase 54 Total Protein 6.2 L Albumin 3.1 L Globulin 3.1 Albumin/Globulin Ratio 1.0 Fingerstick Blood Sugar Results: 125 Critical Care Progress Note - Nutrition Nutrition: Nutrition Category Date Time Status Heart Healthy Diet [DIET] Diets 04/24/17 Dinner Active Assessment/Plan - Assessment and Plan (Free Text) Assessment: 71F w/ respiratory distress secondary to fluid overload and CO2 retention 2/2 LUCERO Plan Cardio: ([place]) Echo shows normal LVF. Echo shows RV is dilated and hypokinetic. Elevated right- sided pressure. JEWELS ordered for tomorrow. Eliquis 5 PO BID Coreg 12.5 PO BID Digoxin 0.125 PO Daily Furosemide 100 IV Q20 Cozaar 25 PO Daily Aldactone 25 PO Daily Pulm: Pt on high flow 35% CXR (04/30) shows stable small bilateral pleural effusions w/o significant interval change. B/l LE Venous Duplex negative. CXR (04/28) shows diffuse confluent airspace opacities throughout both lungs suggestive of prominent edema and or infiltrate, moderate bilateral pleural effusions, and cardiomegaly. Rpt CXR (04/29) suggestive of significant infiltrates suggestive of pulmonary edema vs. pneumonia; also suggestive of pulmonary effusion. Ordered chest PT. Duoneb 3 INH Q6 Acetylcysteine 4 INH Q4 Solu-Medrol 40 IV BID Cefepime 1 IV Q12 Bipap 20&10 ABG: pCO2 75, pO2 72, HCO3 30.2, pH 7.27 (04/29) Endo: Metformin 500 PO ACBD Renal: BUN/ CR = 41/0.9 I/O: -2315ml/24hrs ID: WBC 3.7 Blood cultures negative. MRSA negative. Wound cultures ordered. Nystatin 1 topical BID <Cristian Rogers S - Last Filed: 04/30/17 15:41> CCU Objective - Vital Signs / Intake & Output Vital Signs (Last 4 hours): Vital Signs Temp Pulse Resp BP Pulse Ox 04/30/17 14:03 93/51 L 04/30/17 14:01 76 17 93/51 L 99 04/30/17 13:02 84 11 L 92/44 L 04/30/17 12:20 24 04/30/17 12:01 70 21 109/46 L 98 04/30/17 12:00 97.7 F Intake and Output (Last 8hrs): Intake & Output 04/30/17 04/30/17 04/30/17 06:59 14:59 22:59 Intake Total 80 745 Output Total 1195 1395 Balance -1115 -650 Weight 285 lb 11.505 oz Intake: Intake, IV Amount 80 145 Right Distal Port Upper 80 45 arm Right Proximal Port PICC 100 Oral 0 600 Output: Urine 1195 1395 Urethral (Cardoza) 1195 1395 Stool 0 - Medications Active Medications: Active Medications Generic Name Dose Route Start Last Admin Trade Name Freq PRN Reason Stop Dose Admin Acetylcysteine 4 ml 04/29/17 12:00 04/30/17 08:08 Acetylcysteine 20% INH 4 ml RQ4 SONAL Administration Albuterol/Ipratropium 3 ml 04/29/17 12:00 04/30/17 08:08 Duoneb 3 Mg/0.5 Mg (3 Ml) Ud INH 3 ml RQ4 SONAL Administration Apixaban 5 mg 04/25/17 10:00 04/30/17 09:28 Eliquis PO 5 mg BID SONAL Administration Carvedilol 12.5 mg 04/24/17 18:30 04/30/17 09:27 Coreg PO 12.5 mg BID SONAL Administration Digoxin 0.125 mg 04/25/17 18:00 04/29/17 17:18 Lanoxin PO 0.125 mg DAILY@1800 SONAL Administration Vancomycin HCl 1 gm/ Sodium 200 mls @ 166.7 mls/hr 04/28/17 17:30 04/29/17 17 :15 Chloride IVPB 166.7 mls/hr Q24H SONAL Administration Cefepime HCl 1 gm/ Dextrose 50 mls @ 100 mls/hr 04/29/17 10:00 04/30/17 09:28 IVPB 100 mls/hr Q12H SONAL Administration Furosemide 100 mg/ Sodium 100 mls @ 5 mls/hr 04/30/17 09:15 04/30/17 10:00 Chloride IV 5 mls/hr .Q20H SONAL Administration 5 MG/HR Losartan Potassium 25 mg 04/25/17 10:00 04/30/17 09:28 Cozaar PO 25 mg DAILY SONAL Administration Methylprednisolone 40 mg 04/28/17 18:00 04/30/17 09:28 Solu-Medrol IV 40 mg BID SONAL Administration Nystatin 1 applic 04/28/17 18:00 04/30/17 09:29 Nystop Topical Powder TOP 1 applic BID SONAL Administration Spironolactone 25 mg 04/25/17 10:00 04/30/17 09:27 Aldactone PO 25 mg DAILY SONAL Administration Vitamin A 1 ea 04/29/17 10:00 04/30/17 09:29 Vitamin A & D Oint Ud Foilpak TOP 1 ea BID SONAL Administration - Patient Studies Lab Studies: Microbiology Studies 04/28/17 19:08 MRSA Culture (Admit) - Final Naris MRSA NOT DETECTED 04/28/17 16:45 Blood Culture - Preliminary Blood NO GROWTH AFTER 24 HOURS 04/28/17 16:30 Blood Culture - Preliminary Blood NO GROWTH AFTER 24 HOURS Lab Studies 04/30/17 04/30/17 04/30/17 Range/Units 12:30 05:48 05:48 WBC 3.8 L (4.8-10.8) K/uL RBC 3.61 L (3.80-5.20) Mil/uL Hgb 9.6 L (11.0-16.0) g/dL Hct 29.9 L (34.0-47.0) % MCV 82.6 (81.0-99.0) fL MCH 26.5 L (27.0-31.0) pg MCHC 32.0 L (33.0-37.0) g/dL RDW 16.3 H (11.5-14.5) % Plt Count 154 (130-400) K/uL MPV 9.1 (7.2-11.7) fL Neut % (Auto) 80.2 H (50.0-75.0) % Lymph % (Auto) 14.2 L (20.0-40.0) % Charles % (Auto) 5.4 (0.0-10.0) % Eos % (Auto) 0.0 (0.0-4.0) % Baso % (Auto) 0.2 (0.0-2.0) % Neut # 3.1 (1.8-7.0) K/uL Lymph # 0.5 L (1.0-4.3) K/uL Charles # 0.2 (0.0-0.8) K/uL Eos # 0.0 (0.0-0.7) K/uL Baso # 0.0 (0.0-0.2) K/uL Puncture Site L/b pCO2 62 H (35-45) mm/Hg pO2 78 L (80-100) mm/Hg HCO3 34.6 H (21-28) mmol/L ABG pH 7.41 (7.35-7.45) ABG Total CO2 41.2 H (22-28) mmol/L ABG O2 Saturation 97.3 (95-98) % ABG Base Excess 12.5 H (-2.0-3.0) mmol/L ABG Hemoglobin 10.6 L (11.7-17.4) g/dL ABG Carboxyhemoglobin 1.7 H (0.5-1.5) % POC ABG HHb (Measured) 2.6 (0.0-5.0) % ABG Methemoglobin 1.4 (0.0-3.0) % Zeus Test Na A-a O2 Difference 94.0 mm/Hg Respiratory Index 1.2 Hgb O2 Saturation 94.3 L (95.0-98.0) % FiO2 35.0 % Blood Gas Comments Pt on hg flow 35% Crit Value Called To Dr rogers Crit Value Called By [facility] Crit Value Read Back Y Blood Gas Notified Time 1240 Sodium 134 (132-148) mmol/L Potassium 5.2 (3.6-5.2) mmol/L Chloride 92 L (98-107) mmol/L Carbon Dioxide 39 H (22-30) mmol/L Anion Gap 8 L (10-20) BUN 43 H (7-17) mg/dL Creatinine 0.9 (0.7-1.2) mg/dL Est GFR ( Amer) > 60 Est GFR (Non-Af Amer) > 60 Random Glucose 154 H (65-105) mg/dL Calcium 8.5 L (8.6-10.4) mg/dl Phosphorus 3.7 (2.5-4.5) mg/dL Magnesium 1.7 (1.6-2.3) mg/dL Total Bilirubin 0.4 (0.2-1.3) mg/dL AST 20 (14-36) U/L ALT 26 (9-52) U/L Alkaline Phosphatase 54 (38-126) U/L Total Protein 6.2 L (6.3-8.3) g/dL Albumin 3.1 L (3.5-5.0) g/dL Globulin 3.1 (2.2-3.9) gm/dL Albumin/Globulin Ratio 1.0 (1.0-2.1) 04/29/17 Range/Units 22:13 WBC (4.8-10.8) K/uL RBC (3.80-5.20) Mil/uL Hgb (11.0-16.0) g/dL Hct (34.0-47.0) % MCV (81.0-99.0) fL MCH (27.0-31.0) pg MCHC (33.0-37.0) g/dL RDW (11.5-14.5) % Plt Count (130-400) K/uL MPV (7.2-11.7) fL Neut % (Auto) (50.0-75.0) % Lymph % (Auto) (20.0-40.0) % Charles % (Auto) (0.0-10.0) % Eos % (Auto) (0.0-4.0) % Baso % (Auto) (0.0-2.0) % Neut # (1.8-7.0) K/uL Lymph # (1.0-4.3) K/uL Charles # (0.0-0.8) K/uL Eos # (0.0-0.7) K/uL Baso # (0.0-0.2) K/uL Puncture Site pCO2 (35-45) mm/Hg pO2 (80-100) mm/Hg HCO3 (21-28) mmol/L ABG pH (7.35-7.45) ABG Total CO2 (22-28) mmol/L ABG O2 Saturation (95-98) % ABG Base Excess (-2.0-3.0) mmol/L ABG Hemoglobin (11.7-17.4) g/dL ABG Carboxyhemoglobin (0.5-1.5) % POC ABG HHb (Measured) (0.0-5.0) % ABG Methemoglobin (0.0-3.0) % Zeus Test A-a O2 Difference mm/Hg Respiratory Index Hgb O2 Saturation (95.0-98.0) % FiO2 % Blood Gas Comments Crit Value Called To Crit Value Called By Crit Value Read Back Blood Gas Notified Time Sodium 132 (132-148) mmol/L Potassium 5.4 H (3.6-5.2) mmol/L Chloride 92 L (98-107) mmol/L Carbon Dioxide 37 H (22-30) mmol/L Anion Gap 8 L (10-20) BUN 42 H (7-17) mg/dL Creatinine 1.0 (0.7-1.2) mg/dL Est GFR ( Amer) > 60 Est GFR (Non-Af Amer) 55 Random Glucose 197 H (65-105) mg/dL Calcium 8.3 L (8.6-10.4) mg/dl Phosphorus 3.7 (2.5-4.5) mg/dL Magnesium 1.7 (1.6-2.3) mg/dL Total Bilirubin (0.2-1.3) mg/dL AST (14-36) U/L ALT (9-52) U/L Alkaline Phosphatase (38-126) U/L Total Protein (6.3-8.3) g/dL Albumin (3.5-5.0) g/dL Globulin (2.2-3.9) gm/dL Albumin/Globulin Ratio (1.0-2.1) Laboratory Results - last 24 hr 04/29/17 04/30/17 04/30/17 22:13 05:48 05:48 WBC 3.8 L RBC 3.61 L Hgb 9.6 L Hct 29.9 L MCV 82.6 MCH 26.5 L MCHC 32.0 L RDW 16.3 H Plt Count 154 MPV 9.1 Neut % (Auto) 80.2 H Lymph % (Auto) 14.2 L Charles % (Auto) 5.4 Eos % (Auto) 0.0 Baso % (Auto) 0.2 Neut # 3.1 Lymph # 0.5 L Charles # 0.2 Eos # 0.0 Baso # 0.0 Puncture Site pCO2 pO2 HCO3 ABG pH ABG Total CO2 ABG O2 Saturation ABG Base Excess ABG Hemoglobin ABG Carboxyhemoglobin POC ABG HHb (Measured) ABG Methemoglobin Zeus Test A-a O2 Difference Respiratory Index Hgb O2 Saturation FiO2 Blood Gas Comments Crit Value Called To Crit Value Called By Crit Value Read Back Blood Gas Notified Time Sodium 132 134 Potassium 5.4 H 5.2 Chloride 92 L 92 L Carbon Dioxide 37 H 39 H Anion Gap 8 L 8 L BUN 42 H 43 H Creatinine 1.0 0.9 Est GFR ( Amer) > 60 > 60 Est GFR (Non-Af Amer) 55 > 60 Random Glucose 197 H 154 H Calcium 8.3 L 8.5 L Phosphorus 3.7 3.7 Magnesium 1.7 1.7 Total Bilirubin 0.4 AST 20 ALT 26 Alkaline Phosphatase 54 Total Protein 6.2 L Albumin 3.1 L Globulin 3.1 Albumin/Globulin Ratio 1.0 04/30/17 12:30 WBC RBC Hgb Hct MCV MCH MCHC RDW Plt Count MPV Neut % (Auto) Lymph % (Auto) Charles % (Auto) Eos % (Auto) Baso % (Auto) Neut # Lymph # Charles # Eos # Baso # Puncture Site L/b pCO2 62 H pO2 78 L HCO3 34.6 H ABG pH 7.41 ABG Total CO2 41.2 H ABG O2 Saturation 97.3 ABG Base Excess 12.5 H ABG Hemoglobin 10.6 L ABG Carboxyhemoglobin 1.7 H POC ABG HHb (Measured) 2.6 ABG Methemoglobin 1.4 Zeus Test Na A-a O2 Difference 94.0 Respiratory Index 1.2 Hgb O2 Saturation 94.3 L FiO2 35.0 Blood Gas Comments Pt on hg flow 35% Crit Value Called To Dr rogers Crit Value Called By [facility] Crit Value Read Back Y Blood Gas Notified Time 1240 Sodium Potassium Chloride Carbon Dioxide Anion Gap BUN Creatinine Est GFR ( Amer) Est GFR (Non-Af Amer) Random Glucose Calcium Phosphorus Magnesium Total Bilirubin AST ALT Alkaline Phosphatase Total Protein Albumin Globulin Albumin/Globulin Ratio Critical Care Progress Note - Nutrition Nutrition: Nutrition Category Date Time Status Heart Healthy Diet [DIET] Diets 04/24/17 Dinner Active Attending/Attestation - Attestation I have personally seen and examined this patient.: Yes I have fully participated in the care of the patient.: Yes I have reviewed all pertinent clinical information: Yes Notes (Text): 04/30/17 15:39 patient seen and examined in the intensive care unit. Case discussed with house staff in the morning and Breathing much improved Patient is out of bed to chair Lasix drip reduced to 5 mg Taper steroids Seen by cardiology Heart rate controlled Continue anticoagulation
--- NOTE | 2017-04-30 11:16 | CP.PCM.PN ---
Subjective - Date & Time of Evaluation Date of Evaluation: 04/30/17 Time of Evaluation: 11:15 - Subjective Subjective: Lesser SOB. More comfortable today. Lost 5 lbs since yesterday. On Coninuous Lssix drip at 5 mgm an hour. Diuresing very well with this. Still with A. Fib with moderate ventricular respponse. The wound at the right lower leg is Slightly better. The fungal infection at the right groin is being treated with Nystatin powder. Objective - Vital Signs/Intake and Output Vital Signs (last 24 hours): Temp Pulse Resp BP Pulse Ox 98.5 F 83 16 110/48 L 97 04/30/17 04:35 04/30/17 09:04 04/30/17 09:04 04/30/17 10:00 04/30/17 08:02 Intake and Output: 04/30/17 04/30/17 06:59 18:59 Intake Total 170 Output Total 1795 Balance -1625 - Medications Medications: Current Medications Acetylcysteine (Acetylcysteine 20%) 4 ml INH RQ4 [facility] Last Admin: 04/30/17 08:08 Dose: 4 ml Albuterol/Ipratropium (Duoneb 3 Mg/0.5 Mg (3 Ml) Ud) 3 ml INH RQ4 [facility] Last Admin: 04/30/17 08:08 Dose: 3 ml Apixaban (Eliquis) 5 mg PO BID [facility] Last Admin: 04/30/17 09:28 Dose: 5 mg Carvedilol (Coreg) 12.5 mg PO BID [facility] Last Admin: 04/30/17 09:27 Dose: 12.5 mg Digoxin (Lanoxin) 0.125 mg PO DAILY@1800 [facility] Last Admin: 04/29/17 17:18 Dose: 0.125 mg Vancomycin HCl 1 gm/ Sodium (Chloride) 200 mls @ 166.7 mls/hr IVPB Q24H [facility] Last Admin: 04/29/17 17:15 Dose: 166.7 mls/hr Cefepime HCl 1 gm/ Dextrose 50 mls @ 100 mls/hr IVPB Q12H [facility] Last Admin: 04/30/17 09:28 Dose: 100 mls/hr Furosemide 100 mg/ Sodium (Chloride) 100 mls @ 5 mls/hr IV .Q20H [facility] PRN Reason: 5 MG/HR Last Admin: 04/30/17 10:00 Dose: 5 mls/hr Losartan Potassium (Cozaar) 25 mg PO DAILY [facility] Last Admin: 04/30/17 09:28 Dose: 25 mg Methylprednisolone (Solu-Medrol) 40 mg IV BID [facility] Last Admin: 04/30/17 09:28 Dose: 40 mg Nystatin (Nystop Topical Powder) 1 applic TOP BID [facility] Last Admin: 04/30/17 09:29 Dose: 1 applic Spironolactone (Aldactone) 25 mg PO DAILY [facility] Last Admin: 04/30/17 09:27 Dose: 25 mg Vitamin A (Vitamin A & D Oint Ud Foilpak) 1 ea TOP BID [facility] Last Admin: 04/30/17 09:29 Dose: 1 ea - Labs Labs: 04/30/17 05:48 04/30/17 05:48 PT 13.7 SECONDS (9.7-12.2) H 04/24/17 14:34 INR 1.2 04/24/17 14:34 APTT 29 SECONDS (21-34) 04/24/17 14:34 - Constitutional Appears: Non-toxic, No Acute Distress - Head Exam Head Exam: ATRAUMATIC, NORMAL INSPECTION, NORMOCEPHALIC - Eye Exam Eye Exam: Normal appearance Pupil Exam: PERRL - Respiratory Exam Respiratory Exam: Decreased Breath Sounds, Rales - Cardiovascular Exam Cardiovascular Exam: Irregular Rhythm, +S1, +S2 - GI/Abdominal Exam GI & Abdominal Exam: Soft, Normal Bowel Sounds - Rectal Exam Rectal Exam: Deferred - Neurological Exam Neurological Exam: Alert, Awake, Oriented x3 - Psychiatric Exam Psychiatric exam: Normal Affect, Normal Mood - Skin Skin Exam: Dry, Intact, Normal Color Additional comments: Lower extremities shows trophic changes secondary to chronic edema. Assessment and Plan (1) NIDDY (non-insulin dependent diabetes mellitus in young) Status: Chronic (2) Atrial fibrillation Status: Acute (3) CHF (congestive heart failure) Status: Acute (4) HTN (hypertension) Status: Chronic (5) Type 2 diabetes mellitus Status: Chronic (6) Right heart failure due to pulmonary hypertension Status: Acute (7) Acute respiratory failure Status: Acute - Assessment and Plan (Free Text) Plan: Plan: Continue IV Lasix, Continue Digoxin, Aldactomne. Diovan. and metformin. Continue wound care. Oxygen.
[2017-04-30 12:44] LABS: ARTERIAL BLOOD GAS HCO3 34.6 mmol/L (21-28); ARTERIAL BLOOD GAS HEMOGLOBIN 10.6 g/dL (11.7-17.4); ARTERIAL BLOOD GAS O2 SAT 97.3 % (95-98); ARTERIAL BLOOD GAS PCO2 62 mm/Hg (35-45); ARTERIAL BLOOD GAS PH 7.41 (7.35-7.45); ARTERIAL BLOOD GAS PO2 78 mm/Hg (80-100); ARTERIAL BLOOD GAS TCO2 41.2 mmol/L (22-28)
[2017-04-30] MEDS: Digoxin 125 mcg (0.125 mg) Tab PO SCH (18:20)
[2017-04-30] MEDS: Vancomycin 1 GM in Sodium Chloride 0.9% 200 ML IVPB SCH (18:21)
[2017-05-01] MEDS: Albuterol-Ipratrop 3 mg / 0.5 (3 ml) UD INH SCH ×6 (00:11→20:24)
[2017-05-01] MEDS: Acetylcysteine 20% Inhal Soln (4ml) INH SCH ×3 (00:11→08:07)
[2017-05-01] MEDS: Furosemide 100 MG in Sodium Chloride 0.9% 90 ML IV SCH ×2 (02:06→05:15)
--- NOTE | 2017-05-01 05:37 | CP.PCM.PN ---
Subjective - Date & Time of Evaluation Date of Evaluation: 04/29/17 Time of Evaluation: 19:37 - Subjective Subjective: Since yesterday after starting the Lasix drip patient is feeling somewhat better. Currently patient is still on BiPAP. Will convert into high flow oxygen. Cough noted, still feeling sleepy. Poor appetite. Leg swelling still noted. Patient is currently on antibiotic and IV Lasix. Vital signs reviewed Chest bilateral wheezing and rales noted. Regular heart something Abdomen soft, edema noted in the legs. Assessment and acquisition: 71-year-old female with admitted for new onset A. fib and bilateral cellulitis. CHF. Likely localized to his cellulitis. Patient in the echocardiogram showing evidence of pulmonary hypertension and the A ASD, will need a JEWELS. We'll continue to monitor and will follow-up the patient Objective - Vital Signs/Intake and Output Vital Signs (last 24 hours): Temp Pulse Resp BP Pulse Ox 97.3 F L 73 22 100/59 L 95 05/01/17 00:00 05/01/17 02:01 05/01/17 03:33 05/01/17 02:06 05/01/17 02:01 Intake and Output: 04/30/17 05/01/17 18:59 06:59 Intake Total 1098 342 Output Total 1875 1070 Balance -777 -728 - Medications Medications: Current Medications Acetylcysteine (Acetylcysteine 20%) 4 ml INH RQ4 [facility] Last Admin: 05/01/17 03:26 Dose: 4 ml Albuterol/Ipratropium (Duoneb 3 Mg/0.5 Mg (3 Ml) Ud) 3 ml INH RQ4 [facility] Last Admin: 05/01/17 03:26 Dose: 3 ml Apixaban (Eliquis) 5 mg PO BID [facility] Last Admin: 04/30/17 18:20 Dose: 5 mg Carvedilol (Coreg) 12.5 mg PO BID [facility] Last Admin: 04/30/17 18:20 Dose: 12.5 mg Digoxin (Lanoxin) 0.125 mg PO DAILY@1800 [facility] Last Admin: 04/30/17 18:20 Dose: 0.125 mg Vancomycin HCl 1 gm/ Sodium (Chloride) 200 mls @ 166.7 mls/hr IVPB Q24H [facility] Last Admin: 04/30/17 18:21 Dose: 166.7 mls/hr Cefepime HCl 1 gm/ Dextrose 50 mls @ 100 mls/hr IVPB Q12H [facility] Last Admin: 04/30/17 22:00 Dose: 100 mls/hr Furosemide 100 mg/ Sodium (Chloride) 100 mls @ 5 mls/hr IV .Q20H [facility] PRN Reason: 5 MG/HR Last Admin: 05/01/17 02:06 Dose: 5 mls/hr Losartan Potassium (Cozaar) 25 mg PO DAILY [facility] Last Admin: 04/30/17 09:28 Dose: 25 mg Methylprednisolone (Solu-Medrol) 40 mg IV BID [facility] Last Admin: 04/30/17 18:21 Dose: 40 mg Nystatin (Nystop Topical Powder) 1 applic TOP BID [facility] Last Admin: 04/30/17 18:21 Dose: 1 applic Spironolactone (Aldactone) 25 mg PO DAILY [facility] Last Admin: 04/30/17 09:27 Dose: 25 mg Vitamin A (Vitamin A & D Oint Ud Foilpak) 1 ea TOP BID [facility] Last Admin: 04/30/17 18:22 Dose: 1 ea - Labs Labs: 04/30/17 05:48 04/30/17 05:48 PT 13.7 SECONDS (9.7-12.2) H 04/24/17 14:34 INR 1.2 04/24/17 14:34 APTT 29 SECONDS (21-34) 04/24/17 14:34
--- NOTE | 2017-05-01 05:40 | CP.PCM.PN ---
Subjective - Date & Time of Evaluation Date of Evaluation: 04/30/17 Time of Evaluation: 22:00 - Subjective Subjective: Patient is feeling much better, she is more awake and responding, she was out of bed to chair today. The FiO2 is on the low side. Flow is also reduced. Still on the Lasix tips. Patient is tolerating. Urine output is better. Cough is better. On antibiotic Vital signs stable. Chest good air entry regular hostile nontender abdomen extremities edema Labs reviewed ABG is better. Assessment and recommendation: 71-year-old female admitted with decompensated heart failure. Atrial fibrillation with a heart failure. Patient had a questionably ASD. Continue the diuretics Follow-up the patient Objective - Vital Signs/Intake and Output Vital Signs (last 24 hours): Temp Pulse Resp BP Pulse Ox 97.3 F L 73 22 100/59 L 95 05/01/17 00:00 05/01/17 02:01 05/01/17 05:37 05/01/17 02:06 05/01/17 02:01 Intake and Output: 04/30/17 05/01/17 18:59 06:59 Intake Total 1098 342 Output Total 1875 1070 Balance -777 -728 - Medications Medications: Current Medications Acetylcysteine (Acetylcysteine 20%) 4 ml INH RQ4 [facility] Last Admin: 05/01/17 03:26 Dose: 4 ml Albuterol/Ipratropium (Duoneb 3 Mg/0.5 Mg (3 Ml) Ud) 3 ml INH RQ4 [facility] Last Admin: 05/01/17 03:26 Dose: 3 ml Apixaban (Eliquis) 5 mg PO BID [facility] Last Admin: 04/30/17 18:20 Dose: 5 mg Carvedilol (Coreg) 12.5 mg PO BID [facility] Last Admin: 04/30/17 18:20 Dose: 12.5 mg Digoxin (Lanoxin) 0.125 mg PO DAILY@1800 [facility] Last Admin: 04/30/17 18:20 Dose: 0.125 mg Vancomycin HCl 1 gm/ Sodium (Chloride) 200 mls @ 166.7 mls/hr IVPB Q24H [facility] Last Admin: 04/30/17 18:21 Dose: 166.7 mls/hr Cefepime HCl 1 gm/ Dextrose 50 mls @ 100 mls/hr IVPB Q12H [facility] Last Admin: 04/30/17 22:00 Dose: 100 mls/hr Furosemide 100 mg/ Sodium (Chloride) 100 mls @ 5 mls/hr IV .Q20H [facility] PRN Reason: 5 MG/HR Last Admin: 05/01/17 02:06 Dose: 5 mls/hr Losartan Potassium (Cozaar) 25 mg PO DAILY [facility] Last Admin: 04/30/17 09:28 Dose: 25 mg Methylprednisolone (Solu-Medrol) 40 mg IV BID [facility] Last Admin: 04/30/17 18:21 Dose: 40 mg Nystatin (Nystop Topical Powder) 1 applic TOP BID [facility] Last Admin: 04/30/17 18:21 Dose: 1 applic Spironolactone (Aldactone) 25 mg PO DAILY [facility] Last Admin: 04/30/17 09:27 Dose: 25 mg Vitamin A (Vitamin A & D Oint Ud Foilpak) 1 ea TOP BID [facility] Last Admin: 04/30/17 18:22 Dose: 1 ea - Labs Labs: 04/30/17 05:48 04/30/17 05:48 PT 13.7 SECONDS (9.7-12.2) H 04/24/17 14:34 INR 1.2 04/24/17 14:34 APTT 29 SECONDS (21-34) 04/24/17 14:34
[2017-05-01 06:40] LABS: BASO # 0.1 K/uL (0.0-0.2); HEMOGLOBIN 10.2 g/dL (11.0-16.0); LYMPH # 0.7 K/uL (1.0-4.3); LYMPH % 11.3 % (20.0-40.0); MEAN CELL VOLUME 81.6 fL (81.0-99.0); MEAN CORPUSCULAR HEMOGLOBIN 26.7 pg (27.0-31.0); MEAN CORPUSCULAR HGB CONC 32.8 g/dL (33.0-37.0); MEAN PLATELET VOLUME 8.8 fL (7.2-11.7); MONO # 0.3 K/uL (0.0-0.8); MONO % 5.3 % (0.0-10.0); NEUT # 4.8 K/uL (1.8-7.0); NEUT % 82.4 % (50.0-75.0); NRBC % 0.1 % (0.0-2.0); RBC 3.81 Mil/uL (3.80-5.20); RED CELL DISTRIBUTION WIDTH 16.2 % (11.5-14.5); WHITE BLOOD COUNT 5.8 K/uL (4.8-10.8)
[2017-05-01 06:55] LABS: ALBUMIN 2.9 g/dL (3.5-5.0); ALT/SGPT 25 U/L (9-52); AST/SGOT 18 U/L (14-36); BLOOD UREA NITROGEN 47 mg/dL (7-17); CALCIUM 8.1 mg/dl (8.6-10.4); GFR AFRICAN-AMERICAN > 60; GFR NON-AFRICAN AMERICAN > 60; MAGNESIUM 1.8 mg/dL (1.6-2.3)
--- NOTE | 2017-05-01 09:08 | RAD ---
Chest x-ray single frontal view History: Shortness of breath Comparison: 04/30/2017 Findings: Lines and tubes in stable position. Moderate to severe venous congestion. Moderate bilateral pleural effusions. Confluent airspace opacification in the mid to lower lung zones bilaterally. Cardiomegaly. Degenerative changes in the spine and shoulders. Impression: Lines and tubes in stable position. Moderate to severe venous congestion. Moderate bilateral pleural effusions. Confluent airspace opacification in the mid to lower lung zones bilaterally. Cardiomegaly.
[2017-05-01] MEDS: Vitamins A & D Oint UD Foilpak TOP SCH ×2 (10:40→17:15)
--- NOTE | 2017-05-01 10:48 | CP.PCM.PN ---
Subjective - Date & Time of Evaluation Date of Evaluation: 05/01/17 Time of Evaluation: 10:45 - Subjective Subjective: OOB in chair. Lesser SOB, but still needs to have her head elevated to sleep. Output very adequate with the Lsix tip. This is to be discontinued today and be on Bumex q 8 hours. On Oxygen nasal now. Off antibiotics. Objective - Vital Signs/Intake and Output Vital Signs (last 24 hours): Temp Pulse Resp BP Pulse Ox 97.6 F 92 H 20 116/61 95 05/01/17 04:00 05/01/17 07:00 05/01/17 10:20 05/01/17 07:02 05/01/17 06:00 Intake and Output: 05/01/17 05/01/17 06:59 18:59 Intake Total 357 5 Output Total 1450 100 Balance -1093 -95 - Medications Medications: Current Medications Albuterol/Ipratropium (Duoneb 3 Mg/0.5 Mg (3 Ml) Ud) 3 ml INH RQ4 [facility] Last Admin: 05/01/17 08:08 Dose: 3 ml Apixaban (Eliquis) 5 mg PO BID [facility] Last Admin: 04/30/17 18:20 Dose: 5 mg Bumetanide (Bumex) 1 mg IVP Q8 [facility] Carvedilol (Coreg) 12.5 mg PO BID [facility] Last Admin: 04/30/17 18:20 Dose: 12.5 mg Digoxin (Lanoxin) 0.125 mg PO DAILY@1800 [facility] Last Admin: 04/30/17 18:20 Dose: 0.125 mg Insulin Human Regular (Novolin R) 0 unit SC ACHS [facility] PRN Reason: Protocol Losartan Potassium (Cozaar) 25 mg PO DAILY [facility] Last Admin: 04/30/17 09:28 Dose: 25 mg Nystatin (Nystop Topical Powder) 1 applic TOP BID [facility] Last Admin: 04/30/17 18:21 Dose: 1 applic Rosuvastatin Calcium (Crestor) 10 mg PO HS [facility] Spironolactone (Aldactone) 25 mg PO DAILY [facility] Last Admin: 04/30/17 09:27 Dose: 25 mg Vitamin A (Vitamin A & D Oint Ud Foilpak) 1 ea TOP BID [facility] Last Admin: 04/30/17 18:22 Dose: 1 ea - Labs Labs: 05/01/17 06:36 05/01/17 06:35 PT 13.7 SECONDS (9.7-12.2) H 04/24/17 14:34 INR 1.2 04/24/17 14:34 APTT 29 SECONDS (21-34) 04/24/17 14:34 - Constitutional Appears: Non-toxic - Head Exam Head Exam: ATRAUMATIC, NORMAL INSPECTION, NORMOCEPHALIC - Eye Exam Eye Exam: Normal appearance Pupil Exam: PERRL - ENT Exam ENT Exam: Normal External Ear Exam - Neck Exam Neck Exam: Full ROM, Normal Inspection - Respiratory Exam Respiratory Exam: Decreased Breath Sounds, Rales, NORMAL BREATHING PATTERN - Cardiovascular Exam Cardiovascular Exam: Irregular Rhythm, +S1, +S2 - GI/Abdominal Exam GI & Abdominal Exam: Soft, Normal Bowel Sounds - Rectal Exam Rectal Exam: Deferred - Extremities Exam Extremities Exam: Pedal Edema Additional comments: 2+ edema - Back Exam Back Exam: Full ROM - Neurological Exam Neurological Exam: Alert, Awake, Oriented x3 - Psychiatric Exam Psychiatric exam: Normal Affect, Normal Mood - Skin Skin Exam: Dry, Intact, Normal Color, Warm Assessment and Plan (1) NIDDY (non-insulin dependent diabetes mellitus in young) Status: Chronic (2) Atrial fibrillation Status: Acute (3) CHF (congestive heart failure) Status: Acute (4) HTN (hypertension) Status: Chronic (5) Type 2 diabetes mellitus Status: Chronic (6) Right heart failure due to pulmonary hypertension Status: Acute (7) Acute respiratory failure Status: Acute - Assessment and Plan (Free Text) Assessment: Assessment: Right sided heart joana;lure. Pulmonary edema. Congestive heart failure. NIDDM. Fungus infection right groin., infection right lower leg.
[2017-05-01] MEDS: (Novolin R) Insulin Human Regular 100 units/ml vial SC SCH ×3 (11:48→21:36)
--- NOTE | 2017-05-01 12:52 | CP.PCM.PN ---
Subjective - Date & Time of Evaluation Date of Evaluation: 05/01/17 Time of Evaluation: 11:00 - Subjective Subjective: patient looks better today. no chest pain or dyspnea Objective - Vital Signs/Intake and Output Vital Signs (last 24 hours): Temp Pulse Resp BP Pulse Ox 98.1 F 79 18 106/65 99 05/01/17 12:00 05/01/17 12:01 05/01/17 12:01 05/01/17 12:01 05/01/17 12:01 Intake and Output: 05/01/17 05/01/17 06:59 18:59 Intake Total 357 820 Output Total 1450 1700 Balance -1093 -880 - Medications Medications: Current Medications Albuterol/Ipratropium (Duoneb 3 Mg/0.5 Mg (3 Ml) Ud) 3 ml INH RQ4 [facility] Last Admin: 05/01/17 11:14 Dose: 3 ml Apixaban (Eliquis) 5 mg PO BID [facility] Last Admin: 05/01/17 10:39 Dose: 5 mg Bumetanide (Bumex) 1 mg IVP Q8 [facility] Carvedilol (Coreg) 12.5 mg PO BID [facility] Last Admin: 05/01/17 10:39 Dose: 12.5 mg Digoxin (Lanoxin) 0.125 mg PO DAILY@1800 [facility] Last Admin: 04/30/17 18:20 Dose: 0.125 mg Insulin Human Regular (Novolin R) 0 unit SC ACHS [facility] PRN Reason: Protocol Last Admin: 05/01/17 11:48 Dose: 8 unit Losartan Potassium (Cozaar) 25 mg PO DAILY [facility] Last Admin: 05/01/17 10:39 Dose: 25 mg Nystatin (Nystop Topical Powder) 1 applic TOP BID [facility] Last Admin: 05/01/17 10:39 Dose: 1 applic Rosuvastatin Calcium (Crestor) 10 mg PO HS [facility] Spironolactone (Aldactone) 25 mg PO DAILY [facility] Last Admin: 05/01/17 10:38 Dose: 25 mg Vitamin A (Vitamin A & D Oint Ud Foilpak) 1 ea TOP BID [facility] Last Admin: 05/01/17 10:40 Dose: 1 ea - Labs Labs: 05/01/17 06:36 05/01/17 06:35 PT 13.7 SECONDS (9.7-12.2) H 04/24/17 14:34 INR 1.2 04/24/17 14:34 APTT 29 SECONDS (21-34) 04/24/17 14:34 - Constitutional Appears: Non-toxic - Head Exam Head Exam: NORMAL INSPECTION - Eye Exam Eye Exam: Normal appearance - ENT Exam ENT Exam: Mucous Membranes Moist - Neck Exam Neck Exam: Full ROM - Respiratory Exam Respiratory Exam: Decreased Breath Sounds - Cardiovascular Exam Cardiovascular Exam: Irregular Rhythm - GI/Abdominal Exam GI & Abdominal Exam: Normal Bowel Sounds - Rectal Exam Rectal Exam: Deferred - Extremities Exam Extremities Exam: Full ROM, Pedal Edema - Back Exam Back Exam: NORMAL INSPECTION - Neurological Exam Neurological Exam: Alert, Oriented x3 - Psychiatric Exam Psychiatric exam: Normal Mood - Skin Skin Exam: Dry, Intact Assessment and Plan (1) Atrial fibrillation Assessment & Plan: rate cpontrolled. anticoagulation manager long term care is recommended Status: Acute (2) Right heart failure due to pulmonary hypertension Assessment & Plan: responded to lasix drip Status: Acute
[2017-05-01] MEDS: Digoxin 125 mcg (0.125 mg) Tab PO SCH (17:14)
[2017-05-01 17:52] LABS: ALB/GLOB RATIO 1.1 (1.0-2.1); ALBUMIN 3.3 g/dL (3.5-5.0); ALT/SGPT 28 U/L (9-52); AST/SGOT 19 U/L (14-36); BLOOD UREA NITROGEN 49 mg/dL (7-17); CALCIUM 8.3 mg/dl (8.6-10.4); GFR AFRICAN-AMERICAN > 60; GFR NON-AFRICAN AMERICAN 55
[2017-05-02] MEDS: Albuterol-Ipratrop 3 mg / 0.5 (3 ml) UD INH SCH ×7 (00:03→23:55)
[2017-05-02] MEDS: (Novolin R) Insulin Human Regular 100 units/ml vial SC SCH ×4 (08:04→21:52)
--- NOTE | 2017-05-02 08:13 | CP.PCM.PN ---
Subjective - Date & Time of Evaluation Date of Evaluation: 05/02/17 Time of Evaluation: 08:10 - Subjective Subjective: no new complaints Objective - Vital Signs/Intake and Output Vital Signs (last 24 hours): Temp Pulse Resp BP Pulse Ox 98.4 F 84 22 103/51 L 92 L 05/02/17 04:00 05/02/17 07:02 05/02/17 07:02 05/02/17 07:02 05/02/17 07:02 Intake and Output: 05/02/17 05/02/17 06:59 18:59 Intake Total 800 Output Total 2200 Balance -1400 - Medications Medications: Current Medications Albuterol/Ipratropium (Duoneb 3 Mg/0.5 Mg (3 Ml) Ud) 3 ml INH RQ4 [facility] Last Admin: 05/02/17 04:00 Dose: Not Given Apixaban (Eliquis) 5 mg PO BID [facility] Last Admin: 05/01/17 17:14 Dose: 5 mg Bumetanide (Bumex) 1 mg IVP Q8 [facility] Last Admin: 05/02/17 06:09 Dose: Not Given Carvedilol (Coreg) 12.5 mg PO BID [facility] Last Admin: 05/01/17 17:14 Dose: Not Given Digoxin (Lanoxin) 0.125 mg PO DAILY@1800 [facility] Last Admin: 05/01/17 17:14 Dose: 0.125 mg Insulin Human Regular (Novolin R) 0 unit SC [facility] PRN Reason: Protocol Last Admin: 05/02/17 08:04 Dose: Not Given Losartan Potassium (Cozaar) 25 mg PO DAILY [facility] Last Admin: 05/01/17 10:39 Dose: 25 mg Nystatin (Nystop Topical Powder) 1 applic TOP BID [facility] Last Admin: 05/01/17 17:15 Dose: 1 applic Rosuvastatin Calcium (Crestor) 10 mg PO HS [facility] Last Admin: 05/01/17 21:57 Dose: 10 mg Spironolactone (Aldactone) 25 mg PO DAILY [facility] Last Admin: 05/01/17 10:38 Dose: 25 mg Vitamin A (Vitamin A & D Oint Ud Foilpak) 1 ea TOP BID [facility] Last Admin: 05/01/17 17:15 Dose: 1 ea - Labs Labs: 05/01/17 06:36 05/01/17 17:29 PT 13.7 SECONDS (9.7-12.2) H 04/24/17 14:34 INR 1.2 04/24/17 14:34 APTT 29 SECONDS (21-34) 04/24/17 14:34 - Constitutional Appears: Non-toxic - Head Exam Head Exam: NORMAL INSPECTION - Eye Exam Eye Exam: Normal appearance - ENT Exam ENT Exam: Mucous Membranes Moist - Neck Exam Neck Exam: Full ROM - Respiratory Exam Respiratory Exam: Decreased Breath Sounds - Cardiovascular Exam Cardiovascular Exam: Irregular Rhythm - GI/Abdominal Exam GI & Abdominal Exam: Normal Bowel Sounds - Rectal Exam Rectal Exam: Deferred - Extremities Exam Extremities Exam: Pedal Edema - Back Exam Back Exam: NORMAL INSPECTION - Neurological Exam Neurological Exam: Alert - Psychiatric Exam Psychiatric exam: Normal Affect - Skin Skin Exam: Normal Color Assessment and Plan (1) Atrial fibrillation Assessment & Plan: rate controlled. continue atnicaogulation Status: Acute (2) Right heart failure due to pulmonary hypertension Assessment & Plan: responded well to diuretic therapy Status: Acute
[2017-05-02] MEDS: Vitamins A & D Oint UD Foilpak TOP SCH ×2 (09:43→17:17)
--- NOTE | 2017-05-02 11:32 | CP.PCM.PN ---
Subjective - Date & Time of Evaluation Date of Evaluation: 05/02/17 Time of Evaluation: 11:30 - Subjective Subjective: Afebrile. More comfortable. Diuresing very well with Bumex Wound culture preliminery + for staph. aureaus. Sensitivity pending. Objective - Vital Signs/Intake and Output Vital Signs (last 24 hours): Temp Pulse Resp BP Pulse Ox 98.4 F 84 22 94/60 L 92 L 05/02/17 04:00 05/02/17 07:02 05/02/17 08:37 05/02/17 09:43 05/02/17 07:02 Intake and Output: 05/02/17 05/02/17 06:59 18:59 Intake Total 800 Output Total 2200 Balance -1400 - Medications Medications: Current Medications Albuterol/Ipratropium (Duoneb 3 Mg/0.5 Mg (3 Ml) Ud) 3 ml INH RQ4 [facility] Last Admin: 05/02/17 08:20 Dose: 3 ml Apixaban (Eliquis) 5 mg PO BID [facility] Last Admin: 05/02/17 09:43 Dose: 5 mg Bumetanide (Bumex) 1 mg IVP Q8 [facility] Last Admin: 05/02/17 06:09 Dose: Not Given Carvedilol (Coreg) 12.5 mg PO BID [facility] Last Admin: 05/02/17 09:43 Dose: 12.5 mg Digoxin (Lanoxin) 0.125 mg PO DAILY@1800 [facility] Last Admin: 05/01/17 17:14 Dose: 0.125 mg Insulin Human Regular (Novolin R) 0 unit SC ACHS [facility] PRN Reason: Protocol Last Admin: 05/02/17 08:04 Dose: Not Given Losartan Potassium (Cozaar) 25 mg PO DAILY [facility] Last Admin: 05/02/17 09:43 Dose: 25 mg Nystatin (Nystop Topical Powder) 1 applic TOP BID [facility] Last Admin: 05/02/17 09:44 Dose: 1 applic Rosuvastatin Calcium (Crestor) 10 mg PO HS [facility] Last Admin: 05/01/17 21:57 Dose: 10 mg Spironolactone (Aldactone) 25 mg PO DAILY [facility] Last Admin: 05/02/17 09:43 Dose: 25 mg Vitamin A (Vitamin A & D Oint Ud Foilpak) 1 ea TOP BID [facility] Last Admin: 05/02/17 09:43 Dose: 1 ea - Labs Labs: 05/01/17 06:36 05/01/17 17:29 PT 13.7 SECONDS (9.7-12.2) H 04/24/17 14:34 INR 1.2 04/24/17 14:34 APTT 29 SECONDS (21-34) 04/24/17 14:34 - Constitutional Appears: Non-toxic, No Acute Distress - Eye Exam Eye Exam: EOMI Pupil Exam: PERRL - ENT Exam ENT Exam: Normal External Ear Exam - Neck Exam Neck Exam: Full ROM - Respiratory Exam Respiratory Exam: Decreased Breath Sounds, Rales, NORMAL BREATHING PATTERN - Cardiovascular Exam Cardiovascular Exam: Irregular Rhythm, +S1, +S2 - GI/Abdominal Exam GI & Abdominal Exam: Soft, Normal Bowel Sounds - Rectal Exam Rectal Exam: Deferred - Back Exam Back Exam: NORMAL INSPECTION - Neurological Exam Neurological Exam: Alert, Awake, Oriented x3 - Psychiatric Exam Psychiatric exam: Normal Affect, Normal Mood - Skin Skin Exam: Dry, Intact, Normal Color, Warm Additional comments: Wound at the right lower leg is slowly healing. The roght groin lesion is drying up slowly. Assessment and Plan (1) NIDDY (non-insulin dependent diabetes mellitus in young) Status: Chronic (2) Atrial fibrillation Status: Acute (3) CHF (congestive heart failure) Status: Acute (4) HTN (hypertension) Status: Chronic (5) Type 2 diabetes mellitus Status: Chronic (6) Right heart failure due to pulmonary hypertension Status: Acute (7) Acute respiratory failure Status: Acute - Assessment and Plan (Free Text) Assessment: Assessment: Right sided heart failure. Pulmonary hypertension. Congestive heart failure. NIDDM. Obesity. Ulcer right lower leg. Fungus infection right groin.
[2017-05-02] MEDS: Digoxin 125 mcg (0.125 mg) Tab PO SCH (17:22)
--- NOTE | 2017-05-02 22:23 | CP.PCM.PN ---
Subjective - Date & Time of Evaluation Date of Evaluation: 05/01/17 Time of Evaluation: 22:21 - Subjective Subjective: Patient is currently feeling much better, comfortable. Still on high flow FiO2. Denies any chest pain. Cough noted. Eating well. Patient is making much urine. Leg swelling is slightly better. Vital signs stable. The patient 71-year-old female with new onset atrial fibrillation on anticoagulation, admitted with decompensated heart failure. Bilateral leg edema. Cellulitis. On IV antibiotic. Continue the current treatment. BiPAP as needed. Objective - Vital Signs/Intake and Output Vital Signs (last 24 hours): Temp Pulse Resp BP Pulse Ox 97.9 F 81 22 102/58 L 72 L 05/02/17 16:00 05/02/17 20:19 05/02/17 21:55 05/02/17 20:19 05/02/17 19:00 Intake and Output: 05/02/17 05/03/17 18:59 06:59 Intake Total 540 Output Total 750 Balance -210 - Medications Medications: Current Medications Albuterol/Ipratropium (Duoneb 3 Mg/0.5 Mg (3 Ml) Ud) 3 ml INH RQ4 [facility] Last Admin: 05/02/17 20:17 Dose: 3 ml Apixaban (Eliquis) 5 mg PO BID [facility] Last Admin: 05/02/17 17:22 Dose: 5 mg Bumetanide (Bumex) 1 mg IVP Q12H [facility] Last Admin: 05/02/17 17:22 Dose: 1 mg Carvedilol (Coreg) 12.5 mg PO BID [facility] Last Admin: 05/02/17 17:24 Dose: 12.5 mg Digoxin (Lanoxin) 0.125 mg PO DAILY@1800 [facility] Last Admin: 05/02/17 17:22 Dose: 0.125 mg Insulin Human Regular (Novolin R) 0 unit SC ACHS [facility] PRN Reason: Protocol Last Admin: 05/02/17 21:52 Dose: Not Given Losartan Potassium (Cozaar) 25 mg PO DAILY [facility] Last Admin: 05/02/17 09:43 Dose: 25 mg Nystatin (Nystop Topical Powder) 1 applic TOP BID [facility] Last Admin: 05/02/17 17:16 Dose: 1 applic Rosuvastatin Calcium (Crestor) 10 mg PO HS [facility] Last Admin: 05/02/17 22:04 Dose: 10 mg Spironolactone (Aldactone) 25 mg PO DAILY [facility] Last Admin: 05/02/17 09:43 Dose: 25 mg Vitamin A (Vitamin A & D Oint Ud Foilpak) 1 ea TOP BID [facility] Last Admin: 05/02/17 17:17 Dose: 1 ea - Labs Labs: 05/01/17 06:36 05/01/17 17:29 PT 13.7 SECONDS (9.7-12.2) H 04/24/17 14:34 INR 1.2 04/24/17 14:34 APTT 29 SECONDS (21-34) 04/24/17 14:34
--- NOTE | 2017-05-02 22:25 | CP.PCM.PN ---
Subjective - Date & Time of Evaluation Date of Evaluation: 04/28/17 Time of Evaluation: 22:23 - Subjective Subjective: Procedure: PICC line insertion Consent from the patient. Indication venous access. Procedure: Under aseptic precautions, the right basilic vein was visualized with a sonogram. Aseptic condition. Needle was introduced into the vein, guidewire passed and the double-lumen PICC line was inserted without any complication. Chest x-ray verified position verified. 43 centimeter in length. Tolerated the procedure well. Will follow the patient Objective - Vital Signs/Intake and Output Vital Signs (last 24 hours): Temp Pulse Resp BP Pulse Ox 97.9 F 81 22 102/58 L 72 L 05/02/17 16:00 05/02/17 20:19 05/02/17 21:55 05/02/17 20:19 05/02/17 19:00 Intake and Output: 05/02/17 05/03/17 18:59 06:59 Intake Total 540 Output Total 750 Balance -210 - Medications Medications: Current Medications Albuterol/Ipratropium (Duoneb 3 Mg/0.5 Mg (3 Ml) Ud) 3 ml INH RQ4 [facility] Last Admin: 05/02/17 20:17 Dose: 3 ml Apixaban (Eliquis) 5 mg PO BID [facility] Last Admin: 05/02/17 17:22 Dose: 5 mg Bumetanide (Bumex) 1 mg IVP Q12H [facility] Last Admin: 05/02/17 17:22 Dose: 1 mg Carvedilol (Coreg) 12.5 mg PO BID [facility] Last Admin: 05/02/17 17:24 Dose: 12.5 mg Digoxin (Lanoxin) 0.125 mg PO DAILY@1800 [facility] Last Admin: 05/02/17 17:22 Dose: 0.125 mg Insulin Human Regular (Novolin R) 0 unit SC ACHS [facility] PRN Reason: Protocol Last Admin: 05/02/17 21:52 Dose: Not Given Losartan Potassium (Cozaar) 25 mg PO DAILY [facility] Last Admin: 05/02/17 09:43 Dose: 25 mg Nystatin (Nystop Topical Powder) 1 applic TOP BID [facility] Last Admin: 05/02/17 17:16 Dose: 1 applic Rosuvastatin Calcium (Crestor) 10 mg PO HS [facility] Last Admin: 05/02/17 22:04 Dose: 10 mg Spironolactone (Aldactone) 25 mg PO DAILY [facility] Last Admin: 05/02/17 09:43 Dose: 25 mg Vitamin A (Vitamin A & D Oint Ud Foilpak) 1 ea TOP BID [facility] Last Admin: 05/02/17 17:17 Dose: 1 ea - Labs Labs: 05/01/17 06:36 05/01/17 17:29 PT 13.7 SECONDS (9.7-12.2) H 04/24/17 14:34 INR 1.2 04/24/17 14:34 APTT 29 SECONDS (21-34) 04/24/17 14:34
--- NOTE | 2017-05-02 22:27 | CP.PCM.PN ---
Subjective - Date & Time of Evaluation Date of Evaluation: 05/02/17 Time of Evaluation: 22:26 - Subjective Subjective: Patient is currently sitting up in the morning. She was much comfortable. Lasix drip was discontinued, currently patient is on Bumex. Patient is doing extremely well. Leg swelling is improving. Vital signs stable clinical examination is unremarkable. Chest bilateral good air entry. One culture showing evidence of Staphylococcus aureus. Currently on IV antibiotic as per the infectious disease. Patient is a 71-year-old female with the atrial fibrillation, possible sleep apnea, admitted with hypercapnic respirateory failure, improving. Likely secondary today, decompensated heart failure Continue the BiPAP as needed Objective - Vital Signs/Intake and Output Vital Signs (last 24 hours): Temp Pulse Resp BP Pulse Ox 97.9 F 81 22 102/58 L 72 L 05/02/17 16:00 05/02/17 20:19 05/02/17 21:55 05/02/17 20:19 05/02/17 19:00 Intake and Output: 05/02/17 05/03/17 18:59 06:59 Intake Total 540 Output Total 750 Balance -210 - Medications Medications: Current Medications Albuterol/Ipratropium (Duoneb 3 Mg/0.5 Mg (3 Ml) Ud) 3 ml INH RQ4 [facility] Last Admin: 05/02/17 20:17 Dose: 3 ml Apixaban (Eliquis) 5 mg PO BID [facility] Last Admin: 05/02/17 17:22 Dose: 5 mg Bumetanide (Bumex) 1 mg IVP Q12H [facility] Last Admin: 05/02/17 17:22 Dose: 1 mg Carvedilol (Coreg) 12.5 mg PO BID [facility] Last Admin: 05/02/17 17:24 Dose: 12.5 mg Digoxin (Lanoxin) 0.125 mg PO DAILY@1800 [facility] Last Admin: 05/02/17 17:22 Dose: 0.125 mg Insulin Human Regular (Novolin R) 0 unit SC ACHS [facility] PRN Reason: Protocol Last Admin: 05/02/17 21:52 Dose: Not Given Losartan Potassium (Cozaar) 25 mg PO DAILY [facility] Last Admin: 05/02/17 09:43 Dose: 25 mg Nystatin (Nystop Topical Powder) 1 applic TOP BID [facility] Last Admin: 05/02/17 17:16 Dose: 1 applic Rosuvastatin Calcium (Crestor) 10 mg PO HS [facility] Last Admin: 05/02/17 22:04 Dose: 10 mg Spironolactone (Aldactone) 25 mg PO DAILY [facility] Last Admin: 05/02/17 09:43 Dose: 25 mg Vitamin A (Vitamin A & D Oint Ud Foilpak) 1 ea TOP BID [facility] Last Admin: 05/02/17 17:17 Dose: 1 ea - Labs Labs: 05/01/17 06:36 05/01/17 17:29 PT 13.7 SECONDS (9.7-12.2) H 04/24/17 14:34 INR 1.2 04/24/17 14:34 APTT 29 SECONDS (21-34) 04/24/17 14:34
[2017-05-03] MEDS: Albuterol-Ipratrop 3 mg / 0.5 (3 ml) UD INH SCH ×7 (03:51→23:49)
[2017-05-03] MEDS: (Novolin R) Insulin Human Regular 100 units/ml vial SC SCH ×4 (07:30→21:53)
[2017-05-03] MEDS: Vitamins A & D Oint UD Foilpak TOP SCH ×2 (10:00→19:05)
[2017-05-03] MEDS ORDERED: Clindamycin 600mg/50ml D5W 600 MG/50 ML VIAL IVPB SCH (14:00)
--- NOTE | 2017-05-03 14:02 | CP.PCM.PN ---
Subjective - Date & Time of Evaluation Date of Evaluation: 05/03/17 Time of Evaluation: 02:00 - Subjective Subjective: Afebrile. Breathing more comfortably. Lesser leg edema. Ulcer at the right lower leg still the same. Cultutre shoiws S. Aureus. Diuresing very well with Bumex. by IVPB. Still fibrillating. Objective - Vital Signs/Intake and Output Vital Signs (last 24 hours): Temp Pulse Resp BP Pulse Ox 98.1 F 83 20 105/52 L 96 05/03/17 08:00 05/03/17 10:20 05/03/17 12:19 05/03/17 10:20 05/03/17 10:20 Intake and Output: 05/03/17 05/03/17 06:59 18:59 Intake Total 0 Output Total 900 Balance -900 - Medications Medications: Current Medications Albuterol/Ipratropium (Duoneb 3 Mg/0.5 Mg (3 Ml) Ud) 3 ml INH RQ4 [facility] Last Admin: 05/03/17 09:07 Dose: 3 ml Apixaban (Eliquis) 5 mg PO BID [facility] Last Admin: 05/03/17 10:14 Dose: 5 mg Bumetanide (Bumex) 1 mg IVP Q12H [facility] Last Admin: 05/03/17 06:06 Dose: 1 mg Carvedilol (Coreg) 12.5 mg PO BID [facility] Last Admin: 05/03/17 10:15 Dose: 12.5 mg Digoxin (Lanoxin) 0.125 mg PO DAILY@1800 [facility] Last Admin: 05/02/17 17:22 Dose: 0.125 mg Clindamycin Phosphate (Cleocin) 600 mg in 50 mls @ 102 mls/hr IVPB Q8H [facility] Insulin Human Regular (Novolin R) 0 unit SC ACHS [facility] PRN Reason: Protocol Last Admin: 05/03/17 12:41 Dose: 4 unit Losartan Potassium (Cozaar) 25 mg PO Q24H [facility] Last Admin: 05/03/17 12:40 Dose: 25 mg Nystatin (Nystop Topical Powder) 1 applic TOP BID [facility] Last Admin: 05/02/17 17:16 Dose: 1 applic Rosuvastatin Calcium (Crestor) 10 mg PO HS [facility] Last Admin: 05/02/17 22:04 Dose: 10 mg Spironolactone (Aldactone) 25 mg PO Q24H [facility] Vitamin A (Vitamin A & D Oint Ud Foilpak) 1 ea TOP BID [facility] Last Admin: 05/02/17 17:17 Dose: 1 ea - Labs Labs: 05/01/17 06:36 05/01/17 17:29 PT 13.7 SECONDS (9.7-12.2) H 04/24/17 14:34 INR 1.2 04/24/17 14:34 APTT 29 SECONDS (21-34) 04/24/17 14:34 - Constitutional Appears: Non-toxic, No Acute Distress - Head Exam Head Exam: ATRAUMATIC, NORMOCEPHALIC - Eye Exam Eye Exam: PERRL Pupil Exam: PERRL - ENT Exam ENT Exam: Normal External Ear Exam - Neck Exam Neck Exam: Full ROM - Respiratory Exam Respiratory Exam: Decreased Breath Sounds, Rales, NORMAL BREATHING PATTERN - Cardiovascular Exam Cardiovascular Exam: Irregular Rhythm, +S1, +S2 - GI/Abdominal Exam GI & Abdominal Exam: Soft, Normal Bowel Sounds - Rectal Exam Rectal Exam: Deferred - Extremities Exam Extremities Exam: Pedal Edema Additional comments: Right lower leg presence of ulceration about the size of a dime and below it is a steak like linear ulcer. - Back Exam Back Exam: NORMAL INSPECTION - Neurological Exam Neurological Exam: Alert, Awake, Oriented x3 - Psychiatric Exam Psychiatric exam: Normal Affect, Normal Mood - Skin Skin Exam: Dry, Intact, Normal Color, Warm Assessment and Plan (1) NIDDY (non-insulin dependent diabetes mellitus in young) Status: Chronic (2) Atrial fibrillation Status: Acute (3) CHF (congestive heart failure) Status: Acute (4) HTN (hypertension) Status: Chronic (5) Type 2 diabetes mellitus Status: Chronic (6) Right heart failure due to pulmonary hypertension Status: Acute (7) Acute respiratory failure Status: Acute (8) Ulcer of right medial lower extremity with fat layer exposed Status: Acute - Assessment and Plan (Free Text) Plan: Plan: Continue IV Bumex, Eliquis, Digoxin and Spironolactone. Start on Clindamycin for the ulcer. Oxygen
[2017-05-03] MEDS: Clindamycin 600mg/50ml NS 600 MG/50 ML BAG IVPB SCH ×2 (14:54→21:56)
--- NOTE | 2017-05-03 16:37 | RAD ---
Chest x-ray single frontal view History: Congestive heart failure. Comparison: 05/01/2017 Findings: Right central venous catheter tip extending into the cavoatrial junction. Moderate to severe venous congestion with confluent consolidative changes seen within the mid to lower lung zones bilaterally. Moderate bilateral pleural effusions. Cardiomegaly. Degenerative changes in the spine and shoulders. Impression: Right central venous catheter tip extending into the cavoatrial junction. Moderate to severe venous congestion with confluent consolidative changes seen within the mid to lower lung zones bilaterally. Moderate bilateral pleural effusions. Cardiomegaly.
[2017-05-03] MEDS: Digoxin 125 mcg (0.125 mg) Tab PO SCH (19:00)
[2017-05-04] MEDS: Albuterol-Ipratrop 3 mg / 0.5 (3 ml) UD INH SCH ×3 (03:32→11:13)
[2017-05-04] MEDS: Clindamycin 600mg/50ml NS 600 MG/50 ML BAG IVPB SCH ×3 (06:35→21:36)
[2017-05-04 06:41] LABS: BASO % 0.4 % (0.0-2.0); EOS # 0.2 K/uL (0.0-0.7); EOS % 3.4 % (0.0-4.0); LYMPH # 1.5 K/uL (1.0-4.3); LYMPH % 26.2 % (20.0-40.0); MEAN CELL VOLUME 81.8 fL (81.0-99.0); MEAN CORPUSCULAR HGB CONC 31.8 g/dL (33.0-37.0); MEAN PLATELET VOLUME 8.8 fL (7.2-11.7); MONO # 0.8 K/uL (0.0-0.8); NEUT # 3.1 K/uL (1.8-7.0); RBC 3.85 Mil/uL (3.80-5.20); RED CELL DISTRIBUTION WIDTH 16.4 % (11.5-14.5); WHITE BLOOD COUNT 5.6 K/uL (4.8-10.8)
[2017-05-04 06:50] LABS: ALBUMIN 2.7 g/dL (3.5-5.0); ALT/SGPT 40 U/L (9-52); AST/SGOT 32 U/L (14-36); BLOOD UREA NITROGEN 40 mg/dL (7-17); CALCIUM 7.5 mg/dl (8.6-10.4); GFR AFRICAN-AMERICAN > 60; GFR NON-AFRICAN AMERICAN > 60
[2017-05-04] MEDS: (Novolin R) Insulin Human Regular 100 units/ml vial SC SCH ×4 (07:30→21:34)
--- NOTE | 2017-05-04 09:16 | CP.PCM.PN ---
Subjective - Date & Time of Evaluation Date of Evaluation: 05/03/17 Time of Evaluation: 09:15 - Subjective Subjective: Patient feeling much comfortable, not in any distress, able to stand up E But the distal leg weakness noted Vital signs reviewed Clinical examination unremarkable Labs Assessment and recommendation: 79-year-old female admitted with a cellulitis, decompensated systolic heart failure. Atrial fibrillation. Suspected ASD. We'll continue the treatment Objective - Vital Signs/Intake and Output Vital Signs (last 24 hours): Temp Pulse Resp BP Pulse Ox 97.8 F 78 16 108/57 L 95 05/04/17 04:00 05/04/17 07:00 05/04/17 07:00 05/04/17 06:40 05/04/17 07:00 Intake and Output: 05/04/17 05/04/17 06:59 18:59 Intake Total 50 Output Total 1100 Balance -1050 - Medications Medications: Current Medications Albuterol/Ipratropium (Duoneb 3 Mg/0.5 Mg (3 Ml) Ud) 3 ml INH RQ4 [facility] Last Admin: 05/04/17 06:55 Dose: 3 ml Apixaban (Eliquis) 5 mg PO BID [facility] Last Admin: 05/03/17 19:00 Dose: 5 mg Bumetanide (Bumex) 1 mg IVP Q12H [facility] Last Admin: 05/04/17 05:34 Dose: Not Given Carvedilol (Coreg) 12.5 mg PO BID [facility] Last Admin: 05/03/17 18:59 Dose: 12.5 mg Digoxin (Lanoxin) 0.125 mg PO DAILY@1800 [facility] Last Admin: 05/03/17 19:00 Dose: 0.125 mg Clindamycin Phosphate (Cleocin In Normal Saline) 600 mg in 50 mls @ 102 mls/hr IVPB Q8H [facility] Last Admin: 05/04/17 06:35 Dose: 102 mls/hr Insulin Human Regular (Novolin R) 0 unit SC ACHS [facility] PRN Reason: Protocol Last Admin: 05/03/17 21:53 Dose: Not Given Losartan Potassium (Cozaar) 25 mg PO Q24H [facility] Last Admin: 05/03/17 12:40 Dose: 25 mg Nystatin (Nystop Topical Powder) 1 applic TOP BID [facility] Last Admin: 05/03/17 19:05 Dose: 1 applic Rosuvastatin Calcium (Crestor) 10 mg PO HS [facility] Last Admin: 05/03/17 21:56 Dose: 10 mg Spironolactone (Aldactone) 25 mg PO Q24H [facility] Last Admin: 05/03/17 14:53 Dose: 25 mg Vitamin A (Vitamin A & D Oint Ud Foilpak) 1 ea TOP BID [facility] Last Admin: 05/03/17 19:05 Dose: 1 ea - Labs Labs: 05/04/17 06:23 05/04/17 06:24 PT 13.7 SECONDS (9.7-12.2) H 04/24/17 14:34 INR 1.2 04/24/17 14:34 APTT 29 SECONDS (21-34) 04/24/17 14:34
--- NOTE | 2017-05-04 09:17 | CP.PCM.PN ---
Subjective - Date & Time of Evaluation Date of Evaluation: 05/04/17 Time of Evaluation: 09:16 - Subjective Subjective: Patient feeling much comfortable, not in any distress, able to stand up E But the distal leg weakness noted Vital signs reviewed Clinical examination unremarkable Labs Assessment and recommendation: 79-year-old female admitted with a cellulitis, decompensated systolic heart failure. Atrial fibrillation. Suspected ASD. We'll continue the treatment Will change the nasal cannula Objective - Vital Signs/Intake and Output Vital Signs (last 24 hours): Temp Pulse Resp BP Pulse Ox 97.8 F 78 16 108/57 L 95 05/04/17 04:00 05/04/17 07:00 05/04/17 07:00 05/04/17 06:40 05/04/17 07:00 Intake and Output: 05/04/17 05/04/17 06:59 18:59 Intake Total 50 Output Total 1100 Balance -1050 - Medications Medications: Current Medications Albuterol/Ipratropium (Duoneb 3 Mg/0.5 Mg (3 Ml) Ud) 3 ml INH RQ4 [facility] Last Admin: 05/04/17 06:55 Dose: 3 ml Apixaban (Eliquis) 5 mg PO BID [facility] Last Admin: 05/03/17 19:00 Dose: 5 mg Bumetanide (Bumex) 1 mg IVP Q12H [facility] Last Admin: 05/04/17 05:34 Dose: Not Given Carvedilol (Coreg) 12.5 mg PO BID [facility] Last Admin: 05/03/17 18:59 Dose: 12.5 mg Digoxin (Lanoxin) 0.125 mg PO DAILY@1800 [facility] Last Admin: 05/03/17 19:00 Dose: 0.125 mg Clindamycin Phosphate (Cleocin In Normal Saline) 600 mg in 50 mls @ 102 mls/hr IVPB Q8H [facility] Last Admin: 05/04/17 06:35 Dose: 102 mls/hr Insulin Human Regular (Novolin R) 0 unit SC ACHS [facility] PRN Reason: Protocol Last Admin: 05/03/17 21:53 Dose: Not Given Losartan Potassium (Cozaar) 25 mg PO Q24H [facility] Last Admin: 05/03/17 12:40 Dose: 25 mg Nystatin (Nystop Topical Powder) 1 applic TOP BID [facility] Last Admin: 05/03/17 19:05 Dose: 1 applic Rosuvastatin Calcium (Crestor) 10 mg PO HS [facility] Last Admin: 05/03/17 21:56 Dose: 10 mg Spironolactone (Aldactone) 25 mg PO Q24H [facility] Last Admin: 05/03/17 14:53 Dose: 25 mg Vitamin A (Vitamin A & D Oint Ud Foilpak) 1 ea TOP BID [facility] Last Admin: 05/03/17 19:05 Dose: 1 ea - Labs Labs: 05/04/17 06:23 05/04/17 06:24 PT 13.7 SECONDS (9.7-12.2) H 04/24/17 14:34 INR 1.2 04/24/17 14:34 APTT 29 SECONDS (21-34) 04/24/17 14:34
[2017-05-04] MEDS: Vitamins A & D Oint UD Foilpak TOP SCH ×2 (10:02→18:01)
--- NOTE | 2017-05-04 15:59 | CP.PCM.PN ---
Subjective - Date & Time of Evaluation Date of Evaluation: 05/04/17 Time of Evaluation: 04:00 - Subjective Subjective: Lesser SOB, but chest x-ray still shows plueral effusion and moderate venous congestion. Lowwer extremities still edematous but to a much lesser degree. The ulceration at the right lower leg still the same. Objective - Vital Signs/Intake and Output Vital Signs (last 24 hours): Temp Pulse Resp BP Pulse Ox 98 F 102 H 17 93/54 L 100 05/04/17 12:00 05/04/17 14:00 05/04/17 14:00 05/04/17 13:38 05/04/17 14:00 Intake and Output: 05/04/17 05/04/17 06:59 18:59 Intake Total 50 Output Total 1100 Balance -1050 - Medications Medications: Current Medications Apixaban (Eliquis) 5 mg PO BID [facility] Last Admin: 05/04/17 10:01 Dose: 5 mg Bumetanide (Bumex) 1 mg IVP Q12H [facility] Last Admin: 05/04/17 05:34 Dose: Not Given Carvedilol (Coreg) 12.5 mg PO BID [facility] Last Admin: 05/04/17 10:01 Dose: 12.5 mg Digoxin (Lanoxin) 0.125 mg PO DAILY@1800 [facility] Last Admin: 05/03/17 19:00 Dose: 0.125 mg Clindamycin Phosphate (Cleocin In Normal Saline) 600 mg in 50 mls @ 102 mls/hr IVPB Q8H [facility] Last Admin: 05/04/17 14:46 Dose: 102 mls/hr Insulin Human Regular (Novolin R) [address] [facility] PRN Reason: Protocol Last Admin: 05/04/17 12:18 Dose: 2 unit Losartan Potassium (Cozaar) 25 mg PO Q24H [facility] Last Admin: 05/04/17 12:18 Dose: Not Given Nystatin (Nystop Topical Powder) 1 applic TOP BID [facility] Last Admin: 05/04/17 10:02 Dose: 1 applic Rosuvastatin Calcium (Crestor) 10 mg PO HS [facility] Last Admin: 05/03/17 21:56 Dose: 10 mg Spironolactone (Aldactone) 25 mg PO Q24H [facility] Last Admin: 05/04/17 14:48 Dose: 25 mg Vitamin A (Vitamin A & D Oint Ud Foilpak) 1 ea TOP BID [facility] Last Admin: 05/04/17 10:02 Dose: 1 ea - Labs Labs: 05/04/17 06:23 05/04/17 06:24 PT 13.7 SECONDS (9.7-12.2) H 04/24/17 14:34 INR 1.2 04/24/17 14:34 APTT 29 SECONDS (21-34) 04/24/17 14:34 - Constitutional Appears: Well, Non-toxic, No Acute Distress - Head Exam Head Exam: ATRAUMATIC, NORMAL INSPECTION, NORMOCEPHALIC - Eye Exam Pupil Exam: PERRL - ENT Exam ENT Exam: Mucous Membranes Moist - Neck Exam Neck Exam: Full ROM - Respiratory Exam Respiratory Exam: Decreased Breath Sounds, Rales, NORMAL BREATHING PATTERN - Cardiovascular Exam Cardiovascular Exam: Irregular Rhythm, +S1, +S2 - GI/Abdominal Exam GI & Abdominal Exam: Soft, Normal Bowel Sounds - Rectal Exam Rectal Exam: Deferred - Extremities Exam Extremities Exam: Full ROM - Back Exam Back Exam: Full ROM - Neurological Exam Neurological Exam: Alert, Awake, Oriented x3 - Psychiatric Exam Psychiatric exam: Normal Affect, Normal Mood - Skin Skin Exam: Dry, Intact, Normal Color, Warm Assessment and Plan (1) NIDDY (non-insulin dependent diabetes mellitus in young) Status: Chronic (2) Atrial fibrillation Status: Acute (3) CHF (congestive heart failure) Status: Acute (4) HTN (hypertension) Status: Chronic (5) Type 2 diabetes mellitus Status: Chronic (6) Right heart failure due to pulmonary hypertension Status: Acute (7) Acute respiratory failure Status: Acute (8) Ulcer of right medial lower extremity with fat layer exposed Status: Acute - Assessment and Plan (Free Text) Plan: Plan: Continue present treatment with: IV Bumex 1 mgm q 12 hours IV Clindamycin. DIGoxin Spironolactone. Cozaar. Crestor. Will start on glucophage p.o.
[2017-05-04] MEDS: Digoxin 125 mcg (0.125 mg) Tab PO SCH (17:59)
[2017-05-05] MEDS: Clindamycin 600mg/50ml NS 600 MG/50 ML BAG IVPB SCH ×3 (06:29→22:03)
[2017-05-05] MEDS: Albuterol-Ipratrop 3 mg / 0.5 (3 ml) UD INH SCH ×3 (08:00→19:00)
--- NOTE | 2017-05-05 08:32 | CP.PCM.PN ---
Subjective - Date & Time of Evaluation Date of Evaluation: 05/05/17 Time of Evaluation: 08:20 - Subjective Subjective: no current chest pain or dyspnea. Objective - Vital Signs/Intake and Output Vital Signs (last 24 hours): Temp Pulse Resp BP Pulse Ox 97.8 F 70 16 76/44 L 82 L 05/05/17 04:00 05/05/17 07:00 05/05/17 07:00 05/05/17 06:56 05/05/17 07:00 Intake and Output: 05/05/17 05/05/17 06:59 18:59 Intake Total 200 Output Total 1100 Balance -900 - Medications Medications: Current Medications Albuterol/Ipratropium (Duoneb 3 Mg/0.5 Mg (3 Ml) Ud) 3 ml INH RQ6 [facility] Apixaban (Eliquis) 5 mg PO BID [facility] Last Admin: 05/04/17 17:59 Dose: 5 mg Bumetanide (Bumex) 1 mg IVP Q12H [facility] Last Admin: 05/05/17 06:29 Dose: Not Given Carvedilol (Coreg) 12.5 mg PO BID [facility] Last Admin: 05/04/17 18:00 Dose: 12.5 mg Digoxin (Lanoxin) 0.125 mg PO DAILY@1800 [facility] Last Admin: 05/04/17 17:59 Dose: 0.125 mg Clindamycin Phosphate (Cleocin In Normal Saline) 600 mg in 50 mls @ 102 mls/hr IVPB Q8H [facility] Last Admin: 05/05/17 06:29 Dose: 102 mls/hr Insulin Human Regular (Novolin R) 0 unit SC ACHS [facility] PRN Reason: Protocol Last Admin: 05/04/17 21:34 Dose: Not Given Losartan Potassium (Cozaar) 25 mg PO Q24H [facility] Last Admin: 05/04/17 12:18 Dose: Not Given Metformin HCl (Glucophage Xr) 500 mg PO DAILY [facility] Nystatin (Nystop Topical Powder) 1 applic TOP BID [facility] Last Admin: 05/04/17 18:01 Dose: 1 applic Rosuvastatin Calcium (Crestor) 10 mg PO HS [facility] Last Admin: 05/04/17 21:36 Dose: 10 mg Spironolactone (Aldactone) 25 mg PO Q24H [facility] Last Admin: 05/04/17 14:48 Dose: 25 mg Vitamin A (Vitamin A & D Oint Ud Foilpak) 1 ea TOP BID [facility] Last Admin: 05/04/17 18:01 Dose: 1 ea - Labs Labs: 05/04/17 06:23 05/04/17 06:24 PT 13.7 SECONDS (9.7-12.2) H 04/24/17 14:34 INR 1.2 04/24/17 14:34 APTT 29 SECONDS (21-34) 04/24/17 14:34 - Constitutional Appears: Non-toxic - Head Exam Head Exam: NORMAL INSPECTION - Eye Exam Eye Exam: Normal appearance - ENT Exam ENT Exam: Mucous Membranes Moist - Neck Exam Neck Exam: Normal Inspection - Respiratory Exam Respiratory Exam: Decreased Breath Sounds - Cardiovascular Exam Cardiovascular Exam: REGULAR RHYTHM - GI/Abdominal Exam GI & Abdominal Exam: Normal Bowel Sounds - Rectal Exam Rectal Exam: Deferred - Extremities Exam Extremities Exam: Pedal Edema - Back Exam Back Exam: NORMAL INSPECTION - Neurological Exam Neurological Exam: Alert - Psychiatric Exam Psychiatric exam: Normal Affect - Skin Skin Exam: Normal Color Assessment and Plan (1) Atrial fibrillation Assessment & Plan: rtae controlled. anticoagulation Status: Acute (2) Right heart failure due to pulmonary hypertension Assessment & Plan: will continue with diuretic care. manage medically. Status: Acute
[2017-05-05] MEDS: (Novolin R) Insulin Human Regular 100 units/ml vial SC SCH ×4 (09:07→21:52)
[2017-05-05] MEDS: Vitamins A & D Oint UD Foilpak TOP SCH ×2 (11:42→17:08)
--- NOTE | 2017-05-05 15:54 | CP.PCM.PN ---
Subjective - Date & Time of Evaluation Date of Evaluation: 05/05/17 Time of Evaluation: 03:55 - Subjective Subjective: Less SOB. More comfortable. Diuresing very well with BUMEX. The lesion at the right leg is the same. Blood sugar is well cntrolled with Glucophage. Objective - Vital Signs/Intake and Output Vital Signs (last 24 hours): Temp Pulse Resp BP Pulse Ox 98.1 F 78 21 94/66 L 99 05/05/17 14:00 05/05/17 14:00 05/05/17 14:00 05/05/17 14:00 05/05/17 14:00 Intake and Output: 05/05/17 05/05/17 06:59 18:59 Intake Total 200 720 Output Total 1100 1800 Balance -900 -1080 - Medications Medications: Current Medications Albuterol/Ipratropium (Duoneb 3 Mg/0.5 Mg (3 Ml) Ud) 3 ml INH RQ6 [facility] Last Admin: 05/05/17 13:34 Dose: 3 ml Apixaban (Eliquis) 5 mg PO BID [facility] Last Admin: 05/05/17 10:00 Dose: 5 mg Bumetanide (Bumex) 0.5 mg IVP Q8 [facility] Last Admin: 05/05/17 14:04 Dose: Not Given Carvedilol (Coreg) 12.5 mg PO BID [facility] Last Admin: 05/05/17 10:00 Dose: Not Given Digoxin (Lanoxin) 0.125 mg PO DAILY@1800 [facility] Last Admin: 05/04/17 17:59 Dose: 0.125 mg Clindamycin Phosphate (Cleocin In Normal Saline) 600 mg in 50 mls @ 102 mls/hr IVPB Q8H [facility] Last Admin: 05/05/17 14:00 Dose: 102 mls/hr Insulin Human Regular (Novolin R) 0 unit SC ACHS [facility] PRN Reason: Protocol Last Admin: 05/05/17 11:30 Dose: Not Given Losartan Potassium (Cozaar) 25 mg PO Q24H [facility] Last Admin: 05/05/17 11:59 Dose: Not Given Metformin HCl (Glucophage Xr) 500 mg PO DAILY [facility] Last Admin: 05/05/17 10:00 Dose: 500 mg Nystatin (Nystop Topical Powder) 1 applic TOP BID [facility] Last Admin: 05/05/17 10:00 Dose: 1 applic Rosuvastatin Calcium (Crestor) 10 mg PO HS [facility] Last Admin: 05/04/17 21:36 Dose: 10 mg Spironolactone (Aldactone) 25 mg PO Q24H [facility] Last Admin: 05/05/17 14:04 Dose: Not Given Vitamin A (Vitamin A & D Oint Ud Foilpak) 1 ea TOP BID [facility] Last Admin: 05/05/17 11:42 Dose: 1 ea - Labs Labs: 05/04/17 06:23 05/04/17 06:24 PT 13.7 SECONDS (9.7-12.2) H 04/24/17 14:34 INR 1.2 04/24/17 14:34 APTT 29 SECONDS (21-34) 04/24/17 14:34 - Constitutional Appears: Well, Non-toxic, No Acute Distress - Head Exam Head Exam: ATRAUMATIC, NORMAL INSPECTION, NORMOCEPHALIC - Eye Exam Pupil Exam: PERRL - ENT Exam ENT Exam: Mucous Membranes Moist - Respiratory Exam Respiratory Exam: Decreased Breath Sounds, Rales, NORMAL BREATHING PATTERN - Cardiovascular Exam Cardiovascular Exam: Irregular Rhythm, +S1, +S2 - GI/Abdominal Exam GI & Abdominal Exam: Soft - Rectal Exam Rectal Exam: Deferred - Neurological Exam Neurological Exam: Alert, Awake, Oriented x3 - Psychiatric Exam Psychiatric exam: Normal Affect, Normal Mood - Skin Skin Exam: Dry, Normal Color Assessment and Plan (1) NIDDY (non-insulin dependent diabetes mellitus in young) Status: Chronic (2) Atrial fibrillation Status: Acute (3) CHF (congestive heart failure) Status: Acute (4) HTN (hypertension) Status: Chronic (5) Type 2 diabetes mellitus Status: Chronic (6) Right heart failure due to pulmonary hypertension Status: Acute (7) Acute respiratory failure Status: Acute (8) Ulcer of right medial lower extremity with fat layer exposed Status: Acute - Assessment and Plan (Free Text) Plan: Plan: Continue IV Bumex, Clindamycin. Continue Glucophage, Cozaar, Spironolactone, Coreg and Digoxin. Physical therapy for evaluation for placement in Subacute.
[2017-05-05] MEDS: Digoxin 125 mcg (0.125 mg) Tab PO SCH (22:02)
[2017-05-05 22:03] VITALS: PULSE 88
[2017-05-06] MEDS: Albuterol-Ipratrop 3 mg / 0.5 (3 ml) UD INH SCH ×4 (02:33→19:27)
[2017-05-06] MEDS: Clindamycin 600mg/50ml NS 600 MG/50 ML BAG IVPB SCH ×3 (06:01→21:48)
[2017-05-06 06:36] LABS: BASO % 0.3 % (0.0-2.0); EOS # 0.2 K/uL (0.0-0.7); EOS % 2.7 % (0.0-4.0); HEMOGLOBIN 10.2 g/dL (11.0-16.0); LYMPH % 30.5 % (20.0-40.0); MEAN CELL VOLUME 81.3 fL (81.0-99.0); MEAN CORPUSCULAR HEMOGLOBIN 26.4 pg (27.0-31.0); MEAN CORPUSCULAR HGB CONC 32.5 g/dL (33.0-37.0); MEAN PLATELET VOLUME 9.4 fL (7.2-11.7); MONO % 15.8 % (0.0-10.0); NEUT # 3.3 K/uL (1.8-7.0); NEUT % 50.7 % (50.0-75.0); RBC 3.85 Mil/uL (3.80-5.20); RED CELL DISTRIBUTION WIDTH 16.6 % (11.5-14.5); WHITE BLOOD COUNT 6.5 K/uL (4.8-10.8)
[2017-05-06 06:48] LABS: ALBUMIN 2.9 g/dL (3.5-5.0); ALT/SGPT 40 U/L (9-52); AST/SGOT 34 U/L (14-36); BLOOD UREA NITROGEN 31 mg/dL (7-17); CALCIUM 7.7 mg/dl (8.6-10.4); GFR AFRICAN-AMERICAN > 60; GFR NON-AFRICAN AMERICAN > 60
[2017-05-06] MEDS: (Novolin R) Insulin Human Regular 100 units/ml vial SC SCH ×4 (07:30→21:26)
[2017-05-06 07:47] LABS: FOLATE 11.7 ng/mL
[2017-05-06] MEDS: Vitamins A & D Oint UD Foilpak TOP SCH ×2 (11:32→17:08)
--- NOTE | 2017-05-06 11:39 | CP.PCM.PN ---
Subjective - Date & Time of Evaluation Date of Evaluation: 05/06/17 Time of Evaluation: 11:35 - Subjective Subjective: patient feels more comfortable. Much lesser SOB. Diutresing very well. BP in the l0w 90's. Lesser pedal edema. The leg ulceration is slowly healing. For echo with bubbles today. Objective - Vital Signs/Intake and Output Vital Signs (last 24 hours): Temp Pulse Resp BP Pulse Ox 97.7 F 78 18 118/74 95 05/06/17 08:05 05/06/17 08:05 05/06/17 08:05 05/06/17 10:00 05/06/17 08:05 Intake and Output: 05/06/17 05/06/17 06:59 18:59 Intake Total 250 Output Total 900 Balance -650 - Medications Medications: Current Medications Albuterol/Ipratropium (Duoneb 3 Mg/0.5 Mg (3 Ml) Ud) 3 ml INH RQ6 [facility] Last Admin: 05/06/17 07:56 Dose: 3 ml Apixaban (Eliquis) 5 mg PO BID [facility] Last Admin: 05/06/17 10:00 Dose: 5 mg Bumetanide (Bumex) 0.5 mg IVP Q8 [facility] Last Admin: 05/06/17 05:57 Dose: Not Given Carvedilol (Coreg) 12.5 mg PO BID [facility] Last Admin: 05/06/17 10:00 Dose: 12.5 mg Digoxin (Lanoxin) 0.125 mg PO DAILY@1800 [facility] Last Admin: 05/05/17 22:02 Dose: 0.125 mg Clindamycin Phosphate (Cleocin In Normal Saline) 600 mg in 50 mls @ 102 mls/hr IVPB Q8H [facility] Last Admin: 05/06/17 06:01 Dose: 102 mls/hr Insulin Human Regular (Novolin R) 0 unit SC ACHS [facility] PRN Reason: Protocol Last Admin: 05/06/17 07:30 Dose: Not Given Losartan Potassium (Cozaar) 25 mg PO Q24H [facility] Last Admin: 05/06/17 11:30 Dose: 25 mg Metformin HCl (Glucophage Xr) 500 mg PO DAILY [facility] Last Admin: 05/06/17 11:31 Dose: 500 mg Nystatin (Nystop Topical Powder) 1 applic TOP BID [facility] Last Admin: 05/06/17 10:00 Dose: 1 applic Rosuvastatin Calcium (Crestor) 10 mg PO HS [facility] Last Admin: 05/05/17 22:02 Dose: 10 mg Spironolactone (Aldactone) 25 mg PO Q24H [facility] Last Admin: 05/05/17 14:04 Dose: Not Given Vitamin A (Vitamin A & D Oint Ud Foilpak) 1 ea TOP BID [facility] Last Admin: 05/06/17 11:32 Dose: 1 ea - Labs Labs: 05/06/17 06:25 05/06/17 06:23 PT 13.7 SECONDS (9.7-12.2) H 04/24/17 14:34 INR 1.2 04/24/17 14:34 APTT 29 SECONDS (21-34) 04/24/17 14:34 - Constitutional Appears: Well, Non-toxic, No Acute Distress - Head Exam Head Exam: ATRAUMATIC, NORMAL INSPECTION, NORMOCEPHALIC - Eye Exam Eye Exam: EOMI, Normal appearance Pupil Exam: PERRL - ENT Exam ENT Exam: Mucous Membranes Moist - Neck Exam Neck Exam: Full ROM - Respiratory Exam Respiratory Exam: Decreased Breath Sounds, Rales - Cardiovascular Exam Cardiovascular Exam: Irregular Rhythm, +S1, +S2 - GI/Abdominal Exam GI & Abdominal Exam: Soft - Rectal Exam Rectal Exam: Deferred - Neurological Exam Neurological Exam: Alert, Awake, Oriented x3 - Psychiatric Exam Psychiatric exam: Normal Affect, Normal Mood - Skin Skin Exam: Dry, Intact, Warm Assessment and Plan (1) NIDDY (non-insulin dependent diabetes mellitus in young) Status: Chronic (2) Atrial fibrillation Status: Acute (3) CHF (congestive heart failure) Status: Acute (4) HTN (hypertension) Status: Chronic (5) Type 2 diabetes mellitus Status: Chronic (6) Right heart failure due to pulmonary hypertension Status: Acute (7) Acute respiratory failure Status: Acute (8) Ulcer of right medial lower extremity with fat layer exposed Status: Acute - Assessment and Plan (Free Text) Plan: Plan: Continue IV BUMEX q 8 hours, Clindamycin Continue Spironolactone, Digoxin, Coreg and Cozaar. For ECHO with bubbles today.
--- NOTE | 2017-05-06 13:26 | CP.PCM.PN ---
Subjective - Date & Time of Evaluation Date of Evaluation: 05/06/17 Time of Evaluation: 13:24 - Subjective Subjective: DISCUSSED D/C PLAN WITH DR. KATZ. PT PENDING ECHO W BUBBLE AT THIS TIME. + PICC LINE IN PLACE. AFTER ECHO, CAN D/C TO [facility] W PICC FOR IV ABX. [facility] TO CONTINUE CLINDA FOR A TOTAL OF 10 DAYS SINCE START DATE HERE IN THE HOSPITAL. SEE BELOW FOR D/C INFORMATION IN PREPARATION OF D/C LIKELY TOMORROW. WILL F/U. -PLACE UNDER THE SERVICE OF DR. KATZ WHILE AT [facility]---CALL UPON ARRIVAL WITH BED ASSIGNMENT AND FOR ADMITTING ORDERS. PER DR. KATZ: MRS. ROMERO WILL ONLY NEED REHAB FOR 1 WEEK. MAY BE D/ C HOME WITH HOME SERVICES IF NEEDED AFTER IV ANTIBIOTIC DURATION IS COMPLETED. PLEASE CALL DR. KATZ FOR OFFICIAL D/C ORDER ON 05/15/17. -PICC LINE CARE PER FACILITY PROTOCOL. REMOVE PICC LINE PRIOR TO D/C HOME. -PER DR. KATZ, CONTINUE IV ANTIBIOTICS FOLLOWS: CLINDAMYCIN 600 MG IV Q8 HOURS (VIA PICC LINE) FOR 8 MORE DAYS (FOR A TOTAL OF 10 DAYS---ANTIBIOTIC WAS STARTED LAST AFTERNOON ON 05/03/17 AND LAST DOSE IS TO BE GIVEN IN THE AFTERNOON OF 05/14/17). -PHYSICAL THERAPY TOLERATED. -WOUND CARE TO RIGHT LATERAL LOWER LEG ULCER: APPLY NICKEL THICK AMOUNT OF MEDIHONEY TO OPEN VENOUS ULCER, THEN COVER WITH A DRY DRESSING TO BE DONE DAILY. -FOR FURTHER ORDERS OR QUESTIONS, CONTACT DR. KATZ'S OFFICE. Objective - Vital Signs/Intake and Output Vital Signs (last 24 hours): Temp Pulse Resp BP Pulse Ox 98 F 79 19 112/78 96 05/06/17 12:00 05/06/17 12:00 05/06/17 12:00 05/06/17 12:00 05/06/17 12:00 Intake and Output: 05/06/17 05/06/17 06:59 18:59 Intake Total 250 Output Total 900 Balance -650 - Medications Medications: Current Medications Albuterol/Ipratropium (Duoneb 3 Mg/0.5 Mg (3 Ml) Ud) 3 ml INH RQ6 [facility] Last Admin: 05/06/17 13:21 Dose: 3 ml Apixaban (Eliquis) 5 mg PO BID [facility] Last Admin: 05/06/17 10:00 Dose: 5 mg Bumetanide (Bumex) 0.5 mg IVP Q8 [facility] Last Admin: 05/06/17 05:57 Dose: Not Given Carvedilol (Coreg) 12.5 mg PO BID [facility] Last Admin: 05/06/17 10:00 Dose: 12.5 mg Digoxin (Lanoxin) 0.125 mg PO DAILY@1800 [facility] Last Admin: 05/05/17 22:02 Dose: 0.125 mg Clindamycin Phosphate (Cleocin In Normal Saline) 600 mg in 50 mls @ 102 mls/hr IVPB Q8H [facility] Last Admin: 05/06/17 06:01 Dose: 102 mls/hr Insulin Human Regular (Novolin R) 0 unit SC ACHS [facility] PRN Reason: Protocol Last Admin: 05/06/17 07:30 Dose: Not Given Losartan Potassium (Cozaar) 25 mg PO Q24H [facility] Last Admin: 05/06/17 11:30 Dose: 25 mg Metformin HCl (Glucophage Xr) 500 mg PO DAILY [facility] Last Admin: 05/06/17 11:31 Dose: 500 mg Nystatin (Nystop Topical Powder) 1 applic TOP BID [facility] Last Admin: 05/06/17 10:00 Dose: 1 applic Rosuvastatin Calcium (Crestor) 10 mg PO HS [facility] Last Admin: 05/05/17 22:02 Dose: 10 mg Spironolactone (Aldactone) 25 mg PO Q24H [facility] Last Admin: 05/05/17 14:04 Dose: Not Given Vitamin A (Vitamin A & D Oint Ud Foilpak) 1 ea TOP BID [facility] Last Admin: 05/06/17 11:32 Dose: 1 ea - Labs Labs: 05/06/17 06:25 05/06/17 06:23 PT 13.7 SECONDS (9.7-12.2) H 04/24/17 14:34 INR 1.2 04/24/17 14:34 APTT 29 SECONDS (21-34) 04/24/17 14:34
--- NOTE | 2017-05-06 13:39 | RAD ---
PROCEDURE: CHEST RADIOGRAPH, 1 VIEW HISTORY: congestive heart failure COMPARISON: 05/03/2017 FINDINGS: LUNGS: Bilateral mid and lower lung zone confluent airspace opacities. Coalescent pulmonary edema with or without infiltrates -compatible with this. Bibasilar consolidation -compressive atelectasis in associations with bilateral pleural effusions favored PLEURA: No pneumothorax bilateral pleural effusions left greater than right - yet similar CARDIOVASCULAR: Cardiomegaly Right central venous catheter tip at cavoatrial junction-as before. Prominent main pulmonary artery -similar. Pulmonary venous congestion also suggested-similar OSSEOUS STRUCTURES: Thoracic spondylosis and scoliosis. Bilateral shoulder arthrosis VISUALIZED UPPER ABDOMEN: Normal. OTHER FINDINGS: None. IMPRESSION: Cardiomegaly, bilateral pleural effusions with coalescent airspace opacities compatible with coalescent pulmonary edema. Findings compatible with CHF. Probable concomitant bibasilar compressive atelectasis. . Patchy concomitant infiltrates not excluded. Appearance similar
[2017-05-06] MEDS: Digoxin 125 mcg (0.125 mg) Tab PO SCH (17:05)
--- NOTE | 2017-05-06 17:47 | CP.PCM.PN ---
Subjective - Date & Time of Evaluation Date of Evaluation: 05/06/17 Time of Evaluation: 17:00 - Subjective Subjective: patient has no dyspnea. Objective - Vital Signs/Intake and Output Vital Signs (last 24 hours): Temp Pulse Resp BP Pulse Ox 98 F 18 L 19 110/78 99 05/06/17 16:13 05/06/17 16:13 05/06/17 16:13 05/06/17 17:03 05/06/17 16:13 Intake and Output: 05/06/17 05/06/17 06:59 18:59 Intake Total 250 820 Output Total 900 2000 Balance -650 -1180 - Medications Medications: Current Medications Albuterol/Ipratropium (Duoneb 3 Mg/0.5 Mg (3 Ml) Ud) 3 ml INH RQ6 [facility] Last Admin: 05/06/17 13:21 Dose: 3 ml Apixaban (Eliquis) 5 mg PO BID [facility] Last Admin: 05/06/17 17:07 Dose: 5 mg Bumetanide (Bumex) 0.5 mg IVP Q8 [facility] Last Admin: 05/06/17 14:00 Dose: 0.5 mg Carvedilol (Coreg) 12.5 mg PO BID [facility] Last Admin: 05/06/17 17:03 Dose: 12.5 mg Digoxin (Lanoxin) 0.125 mg PO DAILY@1800 [facility] Last Admin: 05/06/17 17:05 Dose: 0.125 mg Clindamycin Phosphate (Cleocin In Normal Saline) 600 mg in 50 mls @ 102 mls/hr IVPB Q8H [facility] Last Admin: 05/06/17 14:30 Dose: 102 mls/hr Insulin Human Regular (Novolin R) 0 unit SC ACHS [facility] PRN Reason: Protocol Last Admin: 05/06/17 16:18 Dose: Not Given Losartan Potassium (Cozaar) 25 mg PO Q24H [facility] Last Admin: 05/06/17 11:30 Dose: 25 mg Metformin HCl (Glucophage Xr) 500 mg PO DAILY [facility] Last Admin: 05/06/17 11:31 Dose: 500 mg Nystatin (Nystop Topical Powder) 1 applic TOP BID [facility] Last Admin: 05/06/17 17:07 Dose: 1 applic Rosuvastatin Calcium (Crestor) 10 mg PO HS [facility] Last Admin: 05/05/17 22:02 Dose: 10 mg Spironolactone (Aldactone) 25 mg PO Q24H [facility] Last Admin: 05/06/17 14:15 Dose: Not Given Vitamin A (Vitamin A & D Oint Ud Foilpak) 1 ea TOP BID [facility] Last Admin: 05/06/17 17:08 Dose: 1 ea - Labs Labs: 05/06/17 06:25 05/06/17 06:23 PT 13.7 SECONDS (9.7-12.2) H 04/24/17 14:34 INR 1.2 04/24/17 14:34 APTT 29 SECONDS (21-34) 04/24/17 14:34 - Constitutional Appears: Non-toxic - Head Exam Head Exam: NORMAL INSPECTION - Eye Exam Eye Exam: Normal appearance - ENT Exam ENT Exam: Mucous Membranes Moist - Neck Exam Neck Exam: Full ROM - Respiratory Exam Respiratory Exam: Decreased Breath Sounds - Cardiovascular Exam Cardiovascular Exam: REGULAR RHYTHM - GI/Abdominal Exam GI & Abdominal Exam: Normal Bowel Sounds - Rectal Exam Rectal Exam: Deferred - Extremities Exam Extremities Exam: Pedal Edema - Back Exam Back Exam: NORMAL INSPECTION - Neurological Exam Neurological Exam: Alert - Psychiatric Exam Psychiatric exam: Normal Affect - Skin Skin Exam: Normal Color Assessment and Plan (1) Atrial fibrillation Assessment & Plan: controlled. recommend continued anticoagulation Status: Acute (2) Right heart failure due to pulmonary hypertension Assessment & Plan: bubble study performed. there is some croosing of bubbles but not a large amount. Patient likely has a PFO. nontheless there is no change in management at this time. She can be d/ishmael to [facility]. can discuss furhter management as outpatient. Status: Acute
[2017-05-07] MEDS: Albuterol-Ipratrop 3 mg / 0.5 (3 ml) UD INH SCH ×3 (01:44→13:45)
[2017-05-07] MEDS: Clindamycin 600mg/50ml NS 600 MG/50 ML BAG IVPB SCH ×2 (06:10→14:02)
[2017-05-07 06:26] LABS: BASO # 0.1 K/uL (0.0-0.2); BASO % 0.8 % (0.0-2.0); EOS # 0.2 K/uL (0.0-0.7); EOS % 2.1 % (0.0-4.0); HEMOGLOBIN 10.2 g/dL (11.0-16.0); LYMPH # 2.1 K/uL (1.0-4.3); LYMPH % 29.2 % (20.0-40.0); MEAN CELL VOLUME 80.7 fL (81.0-99.0); MEAN CORPUSCULAR HEMOGLOBIN 26.7 pg (27.0-31.0); MEAN CORPUSCULAR HGB CONC 33.1 g/dL (33.0-37.0); MEAN PLATELET VOLUME 9.3 fL (7.2-11.7); MONO # 1.1 K/uL (0.0-0.8); MONO % 15.1 % (0.0-10.0); NEUT # 3.8 K/uL (1.8-7.0); NEUT % 52.8 % (50.0-75.0); NRBC % 0.1 % (0.0-2.0); RBC 3.8 Mil/uL (3.80-5.20); RED CELL DISTRIBUTION WIDTH 16.5 % (11.5-14.5); WHITE BLOOD COUNT 7.2 K/uL (4.8-10.8)
[2017-05-07 07:02] LABS: ALT/SGPT 40 U/L (9-52); AST/SGOT 33 U/L (14-36); BLOOD UREA NITROGEN 27 mg/dL (7-17); CALCIUM 7.9 mg/dl (8.6-10.4); GFR AFRICAN-AMERICAN > 60; GFR NON-AFRICAN AMERICAN > 60; MAGNESIUM 2.1 mg/dL (1.6-2.3)
[2017-05-07] MEDS: (Novolin R) Insulin Human Regular 100 units/ml vial SC SCH ×2 (07:30→12:15)
[2017-05-07] MEDS: Vitamins A & D Oint UD Foilpak TOP SCH (10:14)
--- NOTE | 2017-05-07 11:50 | CP.PCM.DIS ---
Provider - Provider Date of Admission: 04/24/17 15:26 Attending physician: Radha Bell MD Time Spent in preparation of Discharge (in minutes): 60 Diagnosis - Discharge Diagnosis (1) NIDDY (non-insulin dependent diabetes mellitus in young) Status: Chronic (2) Atrial fibrillation Status: Acute (3) CHF (congestive heart failure) Status: Acute (4) HTN (hypertension) Status: Chronic (5) Type 2 diabetes mellitus Status: Chronic (6) Right heart failure due to pulmonary hypertension Status: Acute (7) Acute respiratory failure Status: Resolved (8) Ulcer of right medial lower extremity with fat layer exposed Status: Acute Hospital Course - Lab Results Lab Results: Micro Results 05/03/17 14:44 Leg - Right Gram Stain - Final 05/03/17 14:44 Leg - Right Wound Culture - Final Staphylococcus Aureus 04/28/17 16:45 Blood Blood Culture - Final NO GROWTH AFTER 5 DAYS 04/28/17 16:45 Blood Gram Stain - Final TEST NOT PERFORMED 04/28/17 16:30 Blood Blood Culture - Final NO GROWTH AFTER 5 DAYS 04/28/17 16:30 Blood Gram Stain - Final TEST NOT PERFORMED 04/30/17 12:02 Leg - Right Gram Stain - Final 04/30/17 12:02 Leg - Right Wound Culture - Final Staphylococcus Aureus 04/28/17 19:08 Naris MRSA Culture (Admit) - Final MRSA NOT DETECTED Most Recent Lab Values WBC 7.2 K/uL (4.8-10.8) 05/07/17 06:18 RBC 3.80 Mil/uL (3.80-5.20) 05/07/17 06:18 Hgb 10.2 g/dL (11.0-16.0) L 05/07/17 06:18 Hct 30.7 % (34.0-47.0) L 05/07/17 06:18 MCV 80.7 fL (81.0-99.0) L 05/07/17 06:18 MCH 26.7 pg (27.0-31.0) L 05/07/17 06:18 MCHC 33.1 g/dL (33.0-37.0) 05/07/17 06:18 RDW 16.5 % (11.5-14.5) H 05/07/17 06:18 Plt Count 140 K/uL (130-400) 05/07/17 06:18 MPV 9.3 fL (7.2-11.7) 05/07/17 06:18 Neut % (Auto) 52.8 % (50.0-75.0) 05/07/17 06:18 Lymph % (Auto) 29.2 % (20.0-40.0) 05/07/17 06:18 [place] % (Auto) 15.1 % (0.0-10.0) H 05/07/17 06:18 Eos % (Auto) 2.1 % (0.0-4.0) 05/07/17 06:18 Baso % (Auto) 0.8 % (0.0-2.0) 05/07/17 06:18 Neut # (Auto) 3.8 K/uL (1.8-7.0) 05/07/17 06:18 Lymph # (Auto) 2.1 K/uL (1.0-4.3) 05/07/17 06:18 [place] # (Auto) 1.1 K/uL (0.0-0.8) H 05/07/17 06:18 Eos # (Auto) 0.2 K/uL (0.0-0.7) 05/07/17 06:18 Baso # (Auto) 0.1 K/uL (0.0-0.2) 05/07/17 06:18 Retic Count 2.2 % (0.5-1.5) H 05/06/17 04:00 PT 13.7 SECONDS (9.7-12.2) H 04/24/17 14:34 INR 1.2 04/24/17 14:34 APTT 29 SECONDS (21-34) 04/24/17 14:34 Puncture Site L/b 04/30/17 12:30 pCO2 62 mm/Hg (35-45) H 04/30/17 12:30 pO2 78 mm/Hg (80-100) L 04/30/17 12:30 HCO3 34.6 mmol/L (21-28) H 04/30/17 12:30 ABG pH 7.41 (7.35-7.45) 04/30/17 12:30 ABG Total CO2 41.2 mmol/L (22-28) H 04/30/17 12:30 ABG O2 Saturation 97.3 % (95-98) 04/30/17 12:30 ABG Base Excess 12.5 mmol/L (-2.0-3.0) H 04/30/17 12:30 ABG Hemoglobin 10.6 g/dL (11.7-17.4) L 04/30/17 12:30 ABG Carboxyhemoglobin 1.7 % (0.5-1.5) H 04/30/17 12:30 POC ABG HHb (Measured) 2.6 % (0.0-5.0) 04/30/17 12:30 ABG Methemoglobin 1.4 % (0.0-3.0) 04/30/17 12:30 Zeus Test Na 04/30/17 12:30 ABG Potassium 5.5 mmol/L (3.6-5.2) H 04/28/17 16:30 A-a O2 Difference 94.0 mm/Hg 04/30/17 12:30 Respiratory Index 1.2 04/30/17 12:30 Hgb O2 Saturation 94.3 % (95.0-98.0) L 04/30/17 12:30 Sodium 138.0 mmol/l (132-148) 04/28/17 16:30 Chloride 103.0 mmol/L (98-107) 04/28/17 16:30 Glucose 107 mg/dl (65-105) H 04/28/17 16:30 Lactate 0.6 mmol/L (0.7-2.1) L 04/28/17 16:30 Vent Mode Bipap 04/29/17 06:36 Mechanical Rate 12 04/28/17 21:30 FiO2 35.0 % 04/30/17 12:30 Inspiratory BiPAP 20 04/29/17 06:36 Expiratory BiPAP 10 04/29/17 06:36 Blood Gas Comments Pt on hg flow 35% 04/30/17 12:30 Crit Value Called To Dr rogers 04/30/17 12:30 Crit Value Called By Aman messer rcp 04/30/17 12:30 Crit Value Read Back Y 04/30/17 12:30 Blood Gas Notified Time 1240 04/30/17 12:30 Sodium 130 mmol/L (132-148) L 05/07/17 06:19 Potassium 4.9 mmol/L (3.6-5.2) 05/07/17 06:19 Chloride 89 mmol/L (98-107) L 05/07/17 06:19 Carbon Dioxide 41 mmol/L (22-30) H* 05/07/17 06:19 Anion Gap 6 (10-20) L 05/07/17 06:19 BUN 27 mg/dL (7-17) H 05/07/17 06:19 Creatinine 0.7 mg/dL (0.7-1.2) 05/07/17 06:19 Est GFR ( Amer) > 60 05/07/17 06:19 Est GFR (Non-Af Amer) > 60 05/07/17 06:19 POC Glucose (mg/dL) 223 mg/dL (65-110) H 05/07/17 11:14 Random Glucose 98 mg/dL (65-105) 05/07/17 06:19 Hemoglobin A1c 6.9 % (4.2-6.5) H 04/25/17 06:45 Calcium 7.9 mg/dl (8.6-10.4) L 05/07/17 06:19 Phosphorus 3.0 mg/dL (2.5-4.5) 05/07/17 06:19 Magnesium 2.1 mg/dL (1.6-2.3) 05/07/17 06:19 Ferritin 106.0 ng/mL 05/06/17 06:23 Total Bilirubin 0.8 mg/dL (0.2-1.3) 05/07/17 06:19 AST 33 U/L (14-36) 05/07/17 06:19 ALT 40 U/L (9-52) 05/07/17 06:19 Alkaline Phosphatase 56 U/L (38-126) 05/07/17 06:19 Troponin I < 0.0120 ng/mL (0.00-0.120) 04/24/17 22:09 NT-Pro-B Natriuret Pep 5510 pg/mL (0-900) H 04/24/17 14:34 Total Protein 5.9 g/dL (6.3-8.3) L 05/07/17 06:19 Albumin 3.0 g/dL (3.5-5.0) L 05/07/17 06:19 Globulin 2.9 gm/dL (2.2-3.9) 05/07/17 06:19 Albumin/Globulin Ratio 1.0 (1.0-2.1) 05/07/17 06:19 Vitamin B12 > 1000 pg/mL (239-931) H 05/06/17 06:23 Folate 11.7 ng/mL 05/06/17 06:23 TSH 3rd Generation 1.36 mIU/L (0.46-4.68) 04/28/17 16:28 Arterial Blood Potassium 5.5 mmol/L (3.6-5.2) H 04/28/17 16:30 Influenza Typ A,B (EIA) Negative for flu a/b (NEGATIVE) 05/01/17 08:32 - Hospital Course Hospital Course: Admitted this 71 years old female from the ER because of severe respiratory difficulty and inability to walk due to bruce weight gain of 25 lbs in 2 months. patient is a known case of CAD, NIDDM, CHF and had also been under the care of Dr. Skelton. Patient however had been very non compliant with her diet thus she kept on gaining too much weight and water retention. Patient was placed on IV lasix, Digoxin, and Eliquis and spironolactone. She was also fibrillating with moderate ventricular response. Patient however went into severe respiratory difficulty on the 3rd day of her hospitalization. She was transferred to the ICU and given \ A IV drip of Lasix q 2 hours 10 mgm. She diresed vwey well and later on she was shifted to IV Bumex 1 mgm q 8 hours. Patient also had has an ulkceration at the right lower leg which grew out Staph aureus.She was placed on IV Clindamycin Patient did well with this regimen and was discharged to the subacute rehab facillity. She lost 24 lbs total weight. - Date & Time of H&P Date of H&P: 05/07/17 Time of H&P: 11:50 Discharge Exam - Head Exam Head Exam: NORMAL INSPECTION - Eye Exam Eye Exam: EOMI, Normal appearance Pupil Exam: PERRL - ENT Exam ENT Exam: Normal External Ear Exam - Respiratory Exam Respiratory Exam: Rales, NORMAL BREATHING PATTERN - Cardiovascular Exam Cardiovascular Exam: REGULAR RHYTHM, +S1, +S2 - GI/Abdominal Exam GI & Abdominal Exam: Unremarkable - Rectal Exam Rectal Exam: Deferred - Extremities Exam Extremities exam: pedal edema - Back Exam Back exam: NORMAL INSPECTION - Neurological Exam Neurological exam: Alert, CN II-XII Intact, Oriented x3, Reflexes Normal - Psychiatric Exam Psychiatric exam: Normal Affect, Normal Mood - Skin Skin Exam: Dry, Intact, Normal Color Discharge Plan - Discharge Medications Prescriptions: Clindamycin 600mg/50ml NS [Cleocin in Normal Saline] 600 mg IVPB Q8 8 Days bag - Follow Up Plan Condition: STABLE Disposition: REHAB FACILITY/REHAB UNIT Patient education suggested?: No Additional Instructions: -PLACE UNDER THE SERVICE OF DR. BELL WHILE AT [facility]---CALL UPON ARRIVAL WITH BED ASSIGNMENT AND FOR ADMITTING ORDERS. PER DR. BELL: MRS. ROMERO WILL ONLY NEED REHAB FOR 1 WEEK. MAY BE D/ C HOME WITH HOME SERVICES IF NEEDED AFTER IV ANTIBIOTIC DURATION IS COMPLETED. PLEASE CALL DR. BELL FOR OFFICIAL D/C ORDER ON 05/15/17. -PICC LINE CARE PER FACILITY PROTOCOL. REMOVE PICC LINE PRIOR TO D/C HOME. -PER DR. BELL, CONTINUE IV ANTIBIOTICS FOLLOWS: CLINDAMYCIN 600 MG IV Q8 HOURS (VIA PICC LINE) FOR 8 MORE DAYS (FOR A TOTAL OF 10 DAYS---ANTIBIOTIC WAS STARTED LAST AFTERNOON ON 05/03/17 AND LAST DOSE IS TO BE GIVEN IN THE AFTERNOON OF 05/14/17). -PHYSICAL THERAPY TOLERATED. -WOUND CARE TO RIGHT LATERAL LOWER LEG ULCER: APPLY NICKEL THICK AMOUNT OF MEDIHONEY TO OPEN VENOUS ULCER, THEN COVER WITH A DRY DRESSING TO BE DONE DAILY. -FOR FURTHER ORDERS OR QUESTIONS, CONTACT DR. BELL'S OFFICE. Referrals: Radha Bell MD [Staff Provider] - Castillo Skelton MD [Staff Provider] -
[2017-05-07 15:52] VITALS: BP 101/69; PULSE 76; RESP 20; TEMP 97.3; O2SAT 95
--- NOTE | 2017-05-08 19:47 | CARD ---
APPROVED REPORT EXAM: LIMITED Two-dimensional echocardiogram with Doppler and color Doppler and Bubble Other Information Quality : AverageRhythm : Mitral Valve E/A ratio0.0 TDI E/Lateral E'0.0E/Medial E'0.0 RIGHT VENTRICLE The right ventricle is moderately dilated. Systolic function is mildly to moderately reduced. ATRIA The left atrium size is normal. The right atrium is moderately dilated. There is a moderate secundum type atrial septal defect. Left to right shunting noted. Qp/Qs = 3. AORTIC VALVE The aortic valve is mildly to moderately sclerotic. No aortic regurgitation is present. TRICUSPID VALVE The tricuspid valve is normal in structure. There is mild tricuspid regurgitation. GREAT VESSELS There is mild to mod pulmonary artery dilatation. <Conclusion> There is a moderate secundum type atrial septal defect. Left to right shunting noted. Qp/Qs = 3. The right atrium is moderately dilated. The right ventricle is moderately dilated. Systolic function is mildly to moderately reduced. There is mild tricuspid regurgitation. There is mild to mod pulmonary artery dilatation.
== END 2017-05-07 19:18 | DRG 291 ==
LOC: C.ER 13:44 → C.9E 15:26 → C.6T 17:55 → C.9I 04-28 16:10 → C.6T 05-07 10:25
PROVIDERS: ADMIT Legal Medicine; ATTEND Legal Medicine
PROC: 5A09557 Assistance with Respiratory Ventilation, Greater than 96 Consecutive Hours, Continuous Positive Airway Pressure (ICD-10-PCS; principal; 2017-04-28)
DX: I11.0 Hypertensive heart disease with heart failure (principal); J96.02 Acute respiratory failure with hypercapnia; E87.2 Acidosis; E66.01 Morbid (severe) obesity due to excess calories; I27.29 Other secondary pulmonary hypertension; L03.115 Cellulitis of right lower limb; L97.819 Non-pressure chronic ulcer of other part of right lower leg with unspecified severity; Z68.42 Body mass index [BMI] 45.0-49.9, adult; I25.10 Atherosclerotic heart disease of native coronary artery without angina pectoris; I50.23 Acute on chronic systolic (congestive) heart failure; I42.0 Dilated cardiomyopathy; H40.9 Unspecified glaucoma; G47.33 Obstructive sleep apnea (adult) (pediatric); I48.91 Unspecified atrial fibrillation; Z79.84 Long term (current) use of oral hypoglycemic drugs; E78.5 Hyperlipidemia, unspecified